=== PATIENT | female | born 1970 | race Caucasian/White ===

== ENCOUNTER 2019-08-18 21:02 | Emergency (ER) | payer SELFPAY ==
[2019-08-18 21:03] VITALS: BP 159/75; PULSE 84; RESP 18; TEMP 36.9; O2SAT 99; BMI 44.9
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
[2019-08-18] MEDS: Diphth,Pertuss(Acell),Tet Vac 0.5 ML Vial IM (21:57)
[2019-08-18 22:14] VITALS: BP 120/80; PULSE 83; RESP 15
== END 2019-08-18 22:19 | disposition home or self-care (01) ==
PROVIDERS: Emergency Provider Emergency Medicine; Family Provider Family Medicine Geriatric Medicine; PCP Family Medicine Geriatric Medicine
DX: S60.222A Contusion of left hand, initial encounter (principal); S00.83XA Contusion of other part of head, initial encounter; S60.512A Abrasion of left hand, initial encounter; V89.2XXA Person injured in unspecified motor-vehicle accident, traffic, initial encounter; Y93.9 Activity, unspecified; Y92.9 Unspecified place or not applicable
CPT/HCPCS: 73130; 90715; 99284

== ENCOUNTER 2019-09-30 03:53 | Emergency (ER) | payer MEDICAID, SELFPAY ==
[2019-09-30 03:54] VITALS: BP 138/84; PULSE 76; RESP 24; TEMP 36.3; O2SAT 100; BMI 46.8
[2019-09-30 04:37] VITALS: BP 118/63; PULSE 76; RESP 16; O2SAT 99
--- NOTE | 2019-09-30 04:47 | CT_ITS ---
STUDY: CT ABDOMEN AND PELVIS WITHOUT CONTRAST REASON FOR EXAM: Female, 49 years old. LT FLANK PAIN X ONE HR. Hx of cholecystectomy and appendectomy RADIATION DOSAGE (If Supplied By Facility): CTDIvol = ( 23.42 ) mGy, DLP = ( 1304.66 ) mGycm TECHNIQUE: Transaxial 2.5 mm images were obtained from the dome of the diaphragm to the symphysis pubis without oral contrast, and without intravenous contrast. Sagittal and coronal images were reconstructed. This examination is limited for the evaluation of gastrointestinal, solid organs and vascular structures due to the lack of intravenous and oral contrast. There is obesity, the entirety of soft tissue is not imaged. Individualized dose optimization techniques were used for this CT. COMPARISON: None. FINDINGS: Nonspecific compression of lung bases. There is cardiac enlargement. There is no pericardial fluid. Normal liver. Absent gallbladder and normal extrahepatic biliary system. Normal spleen. Normal pancreas. Normal bilateral adrenal glands. Normal right kidney. Mild left hydronephrosis and hydroureter with an obstructing left UVJ calculus 1 to 2 mm. 1 to 2 mm nonobstructing left inferior renal pole calculus. Normal visualized stomach. Normal small intestine. There are predominantly sigmoid colonic diverticula consistent with diverticulosis. There are surgical clips in the region of the appendix consistent with a prior appendectomy. Normal abdominal aorta. Normal inferior vena cava. Normal retroperitoneum. Normal urinary bladder. The uterus is age appropriate. Enlargement of the left inguinal borderline sized right inguinal lymph nodes. Sagittal left lymph node 2.6 cm and 1.4, right 1.7 cm. Right saphenofemoral insufficiency with varices formation along the anterior and lateral thigh. There are diffuse degenerative changes of the visualized spine, lateral hip joints, lower lumbar facet joints. CT/Abdomen/Pelvis without Cont IMPRESSION: Mild left hydronephrosis and hydroureter with a small left UVJ calculus and a nonobstructing left inferior renal pole calculus. Cardiomegaly. Colonic diverticulosis without active inflammation. Enlarged inguinal lymph nodes of unclear etiology. Right saphenofemoral venous insufficiency with varices formation. If not previously performed ultrasonographic assessment of the bilateral lower extremities for reflux would provide additional detail. Electronically Signed: Roxie García MD at 6:11 EST , Service support ,
--- NOTE | 2019-09-30 04:48 | ED.DCSUM_ITS ---
History of Present Illness Chief Complaint: Flank Pain Informant: Patient Narrative: Patient stated she woke up a couple hours goes with acute left-sided flank pain. Sharp stabbing. Difficult to get comfortable. No history of kidney stones. No blood in her urine. She felt fine before bed. She has some nausea with no vomiting. Normal bowel movements. Current severity is mild. She is unsure if she passed a kidney stone while urinating in the toilet here in the department. She does feel better but it seems to wax and wane. She denies any injury to her back. Is not movement related. No fevers or chills. She denies any urinary symptoms before bed. Past Medical History - Allergies and Home Meds Allergies/Adverse Reactions: Allergies No Known Allergies Allergy (Verified 09/30/19 03:59) Primary Care Physician: Wily Arshad MD [STAFF PHYSICIAN] - Beny Covarrubias Chi, MD [Primary Care Provider] - Prior records reviewed: Yes Past Medical History: - - Reviewed with patient Surgical History: - - Gallbladder, appendix Lives: With Family Smoking Status: Never smoker Alcohol: None Drugs: None Review of Systems General: Denies: Chills, Fever, Sweats Eyes: Denies: Visual changes - bilaterally, Diplopia ENT: Denies: Rhinorrhea, Sore throat Cardiovascular: Denies: Chest pain, Palpitations Respiratory: Denies: Dyspnea, Cough, Dyspnea on exertion Gastrointestinal: Denies: Abdominal pain, Nausea, Vomiting, Diarrhea, Melena, H ematochezia Genitourinary: Denies: Dysuria, Hematuria, Frequency Musculoskeletal: Reports: Back pain - Left-sided back and flank. Denies: Extremity Pain Skin: Denies: Rash, Wounds Neurological: Denies: Headache, Weakness, Numbness Physical Exam Vital Signs/Narrative: Vital Signs Temp Pulse Resp BP Pulse Ox 09/30/19 04:37 76 16 118/63 99 09/30/19 03:54 97.4 F L 76 24 H 138/84 H 100 General: Well nourished, Well developed, No Acute Distress Head: Normocephalic, Atraumatic Eyes: Perrl, EOMI ENT: Moist mucous membranes, No rhinorrhea Neck: Supple, Nontender Cardiovascular: Regular rate, Regular rhythm, No murmurs Respiratory: No distress, CTA bilaterally, Chest nontender Abdomen: Soft, Nontender, Nondistended, Normal bowel sounds Back: Nontender, Normal Inspection Extremities: Nontender, No edema Skin: Normal color, No rash Neurological: Alert, Oriented x3, Cranial nerves II-XII grossly intact, Normal Strength, Normal Sensation Psychological: Normal affect, Normal Mood Diagnostic/Tx/Re-eval Impressions Abdomen/Pelvis CT 09/30/19 04:47 IMPRESSION: Mild left hydronephrosis and hydroureter with a small left UVJ calculus and a nonobstructing left inferior renal pole calculus. Cardiomegaly. Colonic diverticulosis without active inflammation. Enlarged inguinal lymph nodes of unclear etiology. Right saphenofemoral venous insufficiency with varices formation. If not previously performed ultrasonographic assessment of the bilateral lower extremities for reflux would provide additional detail. Electronically Signed: Roxie García MD at 6:11 EST , Service support , 09/30/19 04:47 Abdomen/Pelvis without Cont [CT] Stat Laboratory Results 09/30/19 09/30/19 09/30/19 04:00 04:00 05:35 WBC 9.7 RBC 4.49 Hgb 13.6 Hct 41.7 MCV 92.9 MCH 30.3 MCHC 32.6 RDW Std Deviation 41.3 RDW Coeff of Kristen 12.3 Plt Count 232 MPV 9.6 Immature Gran % (Auto) 0.800 Neut % (Auto) 51.3 Lymph % (Auto) 40.8 Newton % (Auto) 5.0 Eos % (Auto) 1.5 Baso % (Auto) 0.6 Absolute Neuts (auto) 5.0 Absolute Lymphs (auto) 3.96 Nucleated RBC % 0 Sodium 142 Potassium 3.9 Chloride 108 H Carbon Dioxide 28.0 Anion Gap 6 BUN 19 H Creatinine 0.81 Estim Creat Clear Calc 64.99 Est GFR (MDRD) Af Amer 96 Est GFR (MDRD) Non-Af 79 BUN/Creatinine Ratio 23.5 H Glucose 120 H Calcium 9.1 Serum , Qual NEGATIVE Urine Color Urine Clarity Urine pH Ur Specific [place] Urine Protein Urine Glucose (UA) Urine Ketones Urine Occult Blood Urine Nitrite Urine Bilirubin Urine Urobilinogen Ur Leukocyte Esterase Urine RBC Urine WBC Ur Squamous Epith Cells Urine Bacteria Urine Mucus 09/30/19 05:45 WBC RBC Hgb Hct MCV MCH MCHC RDW Std Deviation RDW Coeff of Kristen Plt Count MPV Immature Gran % (Auto) Neut % (Auto) Lymph % (Auto) Newton % (Auto) Eos % (Auto) Baso % (Auto) Absolute Neuts (auto) Absolute Lymphs (auto) Nucleated RBC % Sodium Potassium Chloride Carbon Dioxide Anion Gap BUN Creatinine Estim Creat Clear Calc Est GFR (MDRD) Af Amer Est GFR (MDRD) Non-Af BUN/Creatinine Ratio Glucose Calcium Serum , Qual Urine Color Yellow Urine Clarity Sl. Cloudy Urine pH 5.0 Ur Specific [place] 1.025 Urine Protein 15 H Urine Glucose (UA) Normal Urine Ketones 5 H Urine Occult Blood 250 H Urine Nitrite Negative Urine Bilirubin Negative Urine Urobilinogen Normal Ur Leukocyte Esterase 25 H Urine RBC 25-50 SEEN Urine WBC 0 SEEN Ur Squamous Epith Cells 50-100 SEEN Urine Bacteria 0 SEEN Urine Mucus 1+ - Medical Decision Making Patient given IV fluids, Toradol, Zofran, morphine. Lab work and CT abdomen pelvis obtained. Lab work shows a urine that shows no signs of infection. Electrolytes show a BUN of 19. CBC shows no evidence of leukocytosis. CAT scan shows a 1 to 2 mm left UVJ kidney stone with hydro-. Also a left renal pelvis stone 1 to 2 mm. Incidental finding of inguinal lymph nodes. On palpation I cannot palpate these. Patient has no pain in these areas. Patient will follow- up as an outpatient for this. She will follow-up with Dr. Arshad urology for her kidney stones. Given a prescription for Percocet and Zofran for home. I suspect she will pass these given that they are punctate. She feels much better after treatment with pain medicine. She did require a dose of Dilaudid. This significantly helped her pain. ED Disposition - Plan for ED Patient: Disposition: Home or Assisted Living Diagnosis: Kidney stone on left side Instructions: KIDNEY STONE w/ Colic Prescriptions: Oxycodone HCl/Acetaminophen [Percocet 5/325] 1 - 2 tab PO Q6H PRN PRN 5 Days #20 tab PRN Reason: Pain Or Fever Transmission Status: Sent to [facility] Ondansetron [Zofran Odt] 4 mg PO Q8H PRN PRN #10 tab PRN Reason: Nausea Transmission Status: Pending to [facility] Referrals: Beny Covarrubias Chi, MD [Primary Care Provider] - Wily Arshad MD [STAFF PHYSICIAN] -
[2019-09-30 04:56] LABS: Absolute Lymphocyte Count 3.96 X10^3/uL (0.83-4.51); Basophil# 0.06 X10^3/uL; Basophil% 0.6 % (0-1); Eosinophil# 0.15 X10^3/uL; Eosinophils% 1.5 % (0-5); Hematocrit 41.7 % (37-47); Hemoglobin 13.6 g/dL (12.0-15.0); Lymphocyte # 3.96 X10^3/ul (4.0); Lymphocyte % 40.8 % (19-41); Mean Corp Hgb Conc 32.6 g/dL (32-36); Mean Corpuscular Hgb 30.3 pg (27.0-32.0); Mean Corpuscular Volume 92.9 fL (81-99); Mean Platelet Vol. 9.6 fl (6.2-12.0); Monocyte# 0.49 X10^3/uL; NRBC Flagged by Analyzer 0 % (0-5); Neutrophil # 4.97 X10^3/uL (2.7-7.7); Neutrophil % 51.3 % (47-70); Platelet Count 232 K/mm3 (150-450); RBC Distribution Width CV 12.3 % (11.6-14.6); RBC Distribution Width SD 41.3 fl (35.1-43.9); Red Blood Count 4.49 M/mm3 (4.2-5.4); White Blood Count 9.7 K/mm3 (4.4-11.0)
[2019-09-30 05:02] VITALS: PULSE 89; RESP 18; O2SAT 95
[2019-09-30] MEDS: Ondansetron 4 MG/2 ML Vial IV (05:02)
[2019-09-30] MEDS: Ketorolac 30 MG/ML Syringe IV (05:02)
[2019-09-30] MEDS: 0.9% Normal Saline 1,000 ML 250 ML IV (05:02)
[2019-09-30] MEDS: Morphine 4 MG/ML Syringe IV (05:03)
[2019-09-30 05:17] LABS: Anion Gap 6 (5-15); BUN 19 mg/dL (7-18); BUN/Creat Ratio 23.5 RATIO (10-20); Calcium,Total 9.1 mg/dL (8.5-10.1); Chloride 108 mmol/L (98-107); Creatinine, Serum 0.81 mg/dL (0.55-1.02); EST Glomerular Filtration Rate 79 mL/min (>60); Est Glom Filt Rate - Afr Amer 96 mL/min (>60); Estimated Creatinine Clearance 64.99 ml/min; Glucose 120 mg/dL (74-106); Potassium 3.9 mmol/L (3.5-5.1); Sodium Level 142 mmol/L (136-145)
[2019-09-30] MEDS: HYDROmorphone 1 MG/ML Syringe IV (05:38)
[2019-09-30 05:51] LABS: Bacteria 0 SEEN /hpf (None Seen); White Blood Cells 0 SEEN /hpf (0-5)
[2019-09-30 05:52] LABS: Internal QC Validated? YES +Cl - CLEAR BKGD; Pregnancy, Serum, hCG Quali. NEGATIVE Negative
[2019-09-30 05:53] LABS: Color, Urine Yellow (Yellow); Glucose, Dipstick Normal (Normal); Ketone-Dipstick 5 mg/dl (Negative); Leukocyte Esterase-Dipstick 25 /ul (Negative); Nitrite-Dipstick Negative (Negative); Occult Blood-Urine 250 /ul (Negative); Protein-Dipstick 15 mg/dl (Negative); Specific Gravity, Urine 1.025 (1.002-1.030); Urine Bilirubin Dipstick Negative (Negative); Urine Clarity Sl. Cloudy (Clear); Urine Urobilinogen Normal (Normal)
[2019-09-30 05:58] VITALS: O2SAT 84; O2SAT 98
[2019-09-30 05:59] VITALS: BP 125/56; PULSE 68; RESP 12; O2SAT 98
[2019-09-30 06:08] LABS: Mucous, Urine 1+ /hpf (<or=2+); Red Blood Cells-Urine 25-50 SEEN /hpf (0-5); Squamous Epithelial Cells - UA 50-100 SEEN /hpf (5-10)
[2019-09-30 07:02] VITALS: BP 130/74; PULSE 82; RESP 16; O2SAT 100
== END 2019-09-30 07:02 | disposition home or self-care (01) ==
PROVIDERS: Emergency Provider Emergency Medicine; PCP Family Medicine Geriatric Medicine
DX: N13.2 Hydronephrosis with renal and ureteral calculous obstruction (principal); K57.30 Diverticulosis of large intestine without perforation or abscess without bleeding; R59.0 Localized enlarged lymph nodes; I87.2 Venous insufficiency (chronic) (peripheral)
CPT/HCPCS: 74176; 80048; 81001; 84703; 85025; 96361; 96374; 96375; 99284; J7030; A4216; J2405

== ENCOUNTER → 2019-11-25 | Outpatient (CLI) | payer MEDICAID, SELFPAY ==
[2019-11-25 14:23] LABS: Absolute Lymphocyte Count 2.42 X10^3/uL (0.83-4.51); Absolute Neutrophil Count 4.5 X10^3/uL (2.0-7.7); Basophil# 0.03 X10^3/uL; Basophil% 0.4 % (0-1); Eosinophil# 0.21 X10^3/uL; Eosinophils% 2.8 % (0-5); Hematocrit 41.3 % (37-47); Hemoglobin 13.4 g/dL (12.0-15.0); Lymphocyte # 2.42 X10^3/ul (4.0); Mean Corp Hgb Conc 32.4 g/dL (32-36); Mean Corpuscular Hgb 30.3 pg (27.0-32.0); Mean Corpuscular Volume 93.4 fL (81-99); Monocyte# 0.36 X10^3/uL; Monocyte% 4.8 % (0-10); NRBC Flagged by Analyzer 0 % (0-5); Neutrophil # 4.51 X10^3/uL (2.7-7.7); Neutrophil % 59.6 % (47-70); Platelet Count 231 K/mm3 (150-450); RBC Distribution Width CV 12.4 % (11.6-14.6); RBC Distribution Width SD 42.9 fl (35.1-43.9); Red Blood Count 4.42 M/mm3 (4.2-5.4); White Blood Count 7.6 K/mm3 (4.4-11.0)
[2019-11-25 14:46] LABS: ALB/GLOB Ratio 1.1 RATIO (0.9-2.4); AST(SGOT) 19 U/L (15-37); Alanine Aminotransfer ALT/SGPT 28 U/L (13-56); Albumin, Serum 3.9 g/dL (3.2-5.0); Alkaline Phosphatase 112 U/L (45-117); Anion Gap 4 (5-15); BUN 20 mg/dL (7-18); BUN/Creat Ratio 25.9 RATIO (10-20); Calcium,Total 8.9 mg/dL (8.5-10.1); Chloride 112 mmol/L (98-107); Creatinine, Serum 0.77 mg/dL (0.55-1.02); EST Glomerular Filtration Rate 84 mL/min (>60); Est Glom Filt Rate - Afr Amer 101 mL/min (>60); Globulin 3.5 g/dL (2.2-4.2); Glucose 105 mg/dL (74-106); Potassium 4.3 mmol/L (3.5-5.1); Protein, Total 7.4 g/dL (6.4-8.2); Sodium Level 141 mmol/L (136-145); Thyroid Stim Hormone (TSH) 0.97 uIU/mL (0.358-3.74)
== END | disposition home or self-care (01) ==
PROVIDERS: PCP Family Medicine Geriatric Medicine; Visit Provider Family Medicine Geriatric Medicine
DX: R53.83 Other fatigue (principal)
CPT/HCPCS: 36415; 80053; 84443; 85025

== ENCOUNTER → 2019-12-23 | Outpatient (CLI) | payer MEDICAID, SELFPAY ==
--- NOTE | 2019-12-23 09:53 | BI_ITS ---
MAMMOGRAPHY - BILATERAL SCREENING REASON FOR EXAM: Female, 49 years old. Routine annual screening examination. PERTINENT HISTORY: Non-contributory. TECHNIQUE: Digital bilateral breast yamil (3D mammographic acquisition) in the CC and MLO projections. 2-D mediolateral oblique (MLO) and craniocaudad (CC) views of both breasts were obtained. CAD: Full Field Digital Mammography with Computer Added Detection was performed. COMPARISON: Comparison is made with prior examination dated December 24, 2016. FINDINGS: Breast Composition: There are scattered areas of fibroglandular density. There are no dominant masses or suspicious calcifications. Stable benign-appearing bilateral axillary lymph nodes. No other significant abnormalities are identified. There has been no significant change since the prior study. BI/SCREEN MAMM (CAD) W/YAMIL BILAT IMPRESSION: Stable bilateral screening mammogram. Yearly follow-up mammogram recommended. (A) ASSESSMENT CATEGORY: BIRADS Category 2: Benign. A letter regarding these results will be sent to the patient by the facility within 30 days. Approximately 10% of breast cancers are not detected by mammography. A normal mammogram should not delay biopsy of a clinically suspicious abnormality. [id number] Electronically Signed: Davide Christianson, at 10:57 EDT , Service support ,
== END | disposition home or self-care (01) ==
LOC: OPBI 09:51
PROVIDERS: PCP Family Medicine Geriatric Medicine; Referring Provider Family Medicine Geriatric Medicine; Visit Provider Family Medicine Geriatric Medicine
DX: Z12.31 Encounter for screening mammogram for malignant neoplasm of breast (principal)
CPT/HCPCS: 77063; 77067

== ENCOUNTER → 2020-05-26 | Outpatient (CLI) | payer MEDICAID, SELFPAY ==
[2020-05-26 12:35] LABS: Absolute Lymphocyte Count 2.44 X10^3/uL (0.83-4.51); Absolute Neutrophil Count 4.1 X10^3/uL (2.0-7.7); Basophil# 0.05 X10^3/uL; Basophil% 0.7 % (0-1); Eosinophil# 0.28 X10^3/uL; Eosinophils% 3.9 % (0-5); Hematocrit 39.4 % (37-47); Hemoglobin 12.7 g/dL (12.0-15.0); Lymphocyte # 2.44 X10^3/ul (4.0); Lymphocyte % 33.6 % (19-41); Mean Corp Hgb Conc 32.2 g/dL (32-36); Mean Corpuscular Hgb 31.1 pg (27.0-32.0); Mean Corpuscular Volume 96.3 fL (81-99); Mean Platelet Vol. 9.5 fl (6.2-12.0); Monocyte# 0.37 X10^3/uL; Monocyte% 5.1 % (0-10); NRBC Flagged by Analyzer 0 % (0-5); Neutrophil # 4.06 X10^3/uL (2.7-7.7); Neutrophil % 55.7 % (47-70); Platelet Count 207 K/mm3 (150-450); RBC Distribution Width CV 12.2 % (11.6-14.6); RBC Distribution Width SD 42.9 fl (35.1-43.9); Red Blood Count 4.09 M/mm3 (4.2-5.4); White Blood Count 7.3 K/mm3 (4.4-11.0)
[2020-05-26 12:56] LABS: ALB/GLOB Ratio 0.9 RATIO (0.9-2.4); AST(SGOT) 14 U/L (15-37); Alanine Aminotransfer ALT/SGPT 30 U/L (13-56); Albumin, Serum 3.5 g/dL (3.2-5.0); Alkaline Phosphatase 113 U/L (45-117); Anion Gap 6 (5-15); BUN 13 mg/dL (7-18); BUN/Creat Ratio 17.6 RATIO (10-20); Calcium,Total 9.2 mg/dL (8.5-10.1); Chloride 109 mmol/L (98-107); Creatinine, Serum 0.74 mg/dL (0.55-1.02); EST Glomerular Filtration Rate 88 mL/min (>60); Est Glom Filt Rate - Afr Amer 106 mL/min (>60); Globulin 3.8 g/dL (2.2-4.2); Glucose 114 mg/dL (74-106); Protein, Total 7.3 g/dL (6.4-8.2); Sodium Level 144 mmol/L (136-145); Thyroid Stim Hormone (TSH) 1.11 uIU/mL (0.358-3.74)
== END | disposition home or self-care (01) ==
LOC: POLAB3 10:37
PROVIDERS: PCP Family Medicine Geriatric Medicine; Visit Provider Family Medicine Geriatric Medicine
DX: R53.83 Other fatigue (principal)
CPT/HCPCS: 36415; 80053; 84443; 85025

== ENCOUNTER → 2020-10-17 16:22 | Outpatient (CLI) | payer MEDICAID, SELFPAY ==
[2020-10-17 16:45] LABS: Absolute Lymphocyte Count 2.35 X10^3/uL (0.83-4.51); Absolute Neutrophil Count 3.6 X10^3/uL (2.0-7.7); Basophil# 0.03 X10^3/uL; Basophil% 0.5 % (0-1); Eosinophil# 0.12 X10^3/uL; Eosinophils% 1.8 % (0-5); Hematocrit 37.3 % (37-47); Hemoglobin 12.9 g/dL (12.0-15.0); Lymphocyte # 2.35 X10^3/ul (4.0); Lymphocyte % 36.2 % (19-41); Mean Corp Hgb Conc 34.6 g/dL (32-36); Mean Corpuscular Hgb 34.5 pg (27.0-32.0); Mean Corpuscular Volume 99.7 fL (81-99); Mean Platelet Vol. 8.9 fl (6.2-12.0); Monocyte# 0.31 X10^3/uL; Monocyte% 4.8 % (0-10); NRBC Flagged by Analyzer 0 % (0-5); Neutrophil # 3.62 X10^3/uL (2.7-7.7); Neutrophil % 55.8 % (47-70); Platelet Count 159 K/mm3 (150-450); RBC Distribution Width CV 13.6 % (11.6-14.6); RBC Distribution Width SD 47.3 fl (35.1-43.9); Red Blood Count 3.74 M/mm3 (4.2-5.4); White Blood Count 6.5 K/mm3 (4.4-11.0)
[2020-10-17 16:58] LABS: ALB/GLOB Ratio 1.1 RATIO (0.9-2.4); AST(SGOT) 18 U/L (15-37); Alanine Aminotransfer ALT/SGPT 33 U/L (13-56); Albumin, Serum 3.7 g/dL (3.2-5.0); Alkaline Phosphatase 126 U/L (45-117); Anion Gap 5 (5-15); BUN 15 mg/dL (7-18); BUN/Creat Ratio 25.8 RATIO (10-20); Calcium,Total 8.8 mg/dL (8.5-10.1); Chloride 111 mmol/L (98-107); Creatinine, Serum 0.58 mg/dL (0.55-1.02); EST Glomerular Filtration Rate 115 mL/min (>60); Est Glom Filt Rate - Afr Amer 139 mL/min (>60); Globulin 3.5 g/dL (2.2-4.2); Glucose 92 mg/dL (74-106); Protein, Total 7.2 g/dL (6.4-8.2); Sodium Level 145 mmol/L (136-145)
[2020-10-17 17:23] LABS: D-Dimer Quantitative (DVT/PE) 0.42 FEU/ug/m (0.27-0.49)
[2020-10-17 17:41] LABS: BNP,B-Type NATRIURETIC PEPTIDE 77.6 pg/mL (0-100)
== END ==
PROVIDERS: PCP Family Medicine Geriatric Medicine; Visit Provider Family Medicine Geriatric Medicine
DX: R60.9 Edema, unspecified (principal)
CPT/HCPCS: 36415; 80053; 83880; 85025; 85379

== ENCOUNTER → 2020-12-01 14:36 | Outpatient (CLI) | payer MEDICAID, SELFPAY ==
[2020-12-01 15:47] LABS: Absolute Lymphocyte Count 2.53 X10^3/uL (0.83-4.51); Basophil# 0.04 X10^3/uL; Basophil% 0.6 % (0-1); Eosinophils% 1.4 % (0-5); Hematocrit 39.7 % (37-47); Hemoglobin 12.9 g/dL (12.0-15.0); Lymphocyte # 2.53 X10^3/ul (0.83-4.51); Lymphocyte % 35.5 % (19-41); Mean Corp Hgb Conc 32.5 g/dL (32-36); Mean Corpuscular Hgb 31.1 pg (27.0-32.0); Mean Corpuscular Volume 95.7 fL (81-99); Mean Platelet Vol. 9.4 fl (6.2-12.0); Monocyte# 0.37 X10^3/uL; Monocyte% 5.2 % (0-10); NRBC Flagged by Analyzer 0 % (0-5); Neutrophil # 4.03 X10^3/uL (2.7-7.7); Neutrophil % 56.6 % (47-70); Platelet Count 213 K/mm3 (150-450); RBC Distribution Width CV 12.5 % (11.6-14.6); Red Blood Count 4.15 M/mm3 (4.2-5.4); White Blood Count 7.1 K/mm3 (4.4-11.0)
[2020-12-01 16:26] LABS: ALB/GLOB Ratio 1.1 RATIO (0.9-2.4); AST(SGOT) 18 U/L (15-37); Alanine Aminotransfer ALT/SGPT 35 U/L (13-56); Albumin, Serum 3.9 g/dL (3.2-5.0); Alkaline Phosphatase 124 U/L (45-117); Anion Gap 5 (5-15); BUN 17 mg/dL (7-18); Calcium,Total 9.2 mg/dL (8.5-10.1); Chloride 108 mmol/L (98-107); Creatinine, Serum 0.74 mg/dL (0.55-1.02); EST Glomerular Filtration Rate 87 mL/min (>60); Est Glom Filt Rate - Afr Amer 106 mL/min (>60); Globulin 3.5 g/dL (2.2-4.2); Glucose 97 mg/dL (74-106); Potassium 4.5 mmol/L (3.5-5.1); Protein, Total 7.4 g/dL (6.4-8.2); Sodium Level 141 mmol/L (136-145); Thyroid Stim Hormone (TSH) 1.38 uIU/mL (0.358-3.74)
[2020-12-01 17:49] LABS: Vitamin D,25 Hydroxy 8.1 ng/mL
== END ==
PROVIDERS: PCP Family Medicine Geriatric Medicine; Visit Provider Family Medicine Geriatric Medicine
DX: E55.9 Vitamin D deficiency, unspecified (principal); R53.83 Other fatigue
CPT/HCPCS: 36415; 80053; 82306; 84443; 85025

== ENCOUNTER 2021-03-08 13:57 | Emergency (ER) | payer OTHER, MEDICAID, SELFPAY ==
[2021-03-08 13:58] VITALS: BP 124/73; PULSE 84; RESP 16; TEMP 36.4; O2SAT 97; BMI 44.6
--- NOTE | 2021-03-08 14:18 | RAD_ITS ---
STUDY: X-RAY - LUMBAR SPINE REASON FOR EXAM: Female, 51 years old. Back pain following a fall. TECHNIQUE: 3 view(s) of the lumbar spine were obtained. COMPARISON: None FINDINGS: Normal lumbar lordosis. There is no substantial scoliosis. Minimal anterior listhesis of L4 on L5. There is generalized demineralization of the vertebral bodies. Mild loss of height of the superior endplate of the T11 vertebrae. There is multi-level degenerative disc disease with multi-level disc space narrowing. Endplate spondylosis. Facet joint osteoarthritis. The soft tissue structures are unremarkable. RAD/Lumbar Spine 2 or 3 Views IMPRESSION: Degenerative changes of the spine, as detailed above. Mild loss of height of the superior endplate of the T11 vertebrae. Electronically Signed: Davide Christianson MD at 15:14 EDT , Service support ,
--- NOTE | 2021-03-08 14:18 | RAD_ITS ---
STUDY: X-RAY - LEFT WRIST REASON FOR EXAM: Female, 51 years old. Fall TECHNIQUE: 3 view(s) of the wrist were obtained. COMPARISON: None. FINDINGS: Normal visualized distal radius and ulna. Normal radiocarpal articulation. Normal distal radioulnar articulation. Normal carpal bones. Normal carpal articulations. Normal carpometacarpal articulation of the thumb. Normal second through fifth carpometacarpal articulations. Normal visualized metacarpal bones. The soft tissue structures are unremarkable. RAD/Wrist min 3 Views IMPRESSION: Normal x-ray examination of the wrist. Electronically Signed: Davide Christianson MD at 15:18 EDT , Service support ,
--- NOTE | 2021-03-08 14:19 | EDS_ITS ---
HPI History of Present Illness Chief Complaint: Fall Detail of Chief Complaint: Fall with injury to back and left arm Informant: patient Narrative Narrative: Patient presents to the emergency department after sustaining a fall around 12:30 PM. Patient states that she had taken some trash out to the dumpster while at work. Patient opened the dumpster noted a large raccoon in the dumpster which caused her to jump back on the gravel and she slipped and fell directly onto her back. Patient states that the raccoon came out so she was able to get up and hunched over walk away. Denies loss of consciousness. She complains of pain in her low back. Patient complaining of pain in her left elbow and left wrist. She is not on any blood thinners. She denies neck pain. [facility] Medical History (Updated 03/08/21 @ 15:[address] Fili Ball, ) Anxiety Depression Home Medications ondansetron 4 mg PO Q8H PRN PRN #10 tab 09/30/19 [Rx Last Taken Unknown] citalopram 20 mg PO DAILY 03/08/21 [History Last Taken Unknown] doxepin 10 mg PO DAILY 03/08/21 [History Last Taken Unknown] hydrocodone-acetaminophen 1 tab PO Q4H PRN PRN 2 Days #15 tablet 03/08/21 [Rx Last Taken Unknown] ipratropium bromide 1 spray INTRANASAL DAILY 03/08/21 [History Last Taken Unknown] lidocaine 1 patch TRANSDERMAL DAILY 03/08/21 [History Last Taken Unknown] meloxicam 15 mg PO DAILY 03/08/21 [History Last Taken Unknown] phentermine 1 mg PO DAILY 03/08/21 [History Last Taken Unknown] Allergy/AdvReac Type Severity Reaction Status Date / Time No Known Allergies Allergy Verified 03/08/21 14:00 Social History Smoking Status: Never smoker [facility] ED Constitutional Constitutional ED: Reports systems reviewed and no addt'l complaints, except as documented; Denies body ache(s), change in weight or chills Eyes Eyes: Denies acute decrease in peripheral vision, change in vision, double vision or loss of vision ENT ENT ED: Reports none; Denies ear pain, lip swelling, loss taste/smell, neck pain, otalgia or sore throat Cardiovascular Cardiovascular: Reports none; Denies abdominal pain, chest pain with activity, leg edema, lightheadedness, palpitations, rapid heart rate or syncope Respiratory/Chest Respiratory/Chest: Reports none; Denies change in mental status, dry cough, dyspnea, hemoptysis, shortness of breath at rest or shortness of breath with exertion Gastrointestinal Gastrointestinal: Reports none; Denies abdominal pain, change in stool character, diarrhea, hematemesis, hematochezia, melena, rectal bleeding or vomiting Genitourinary Genitourinary ED: Reports none; Denies abdominal discomfort, anuria, dysuria, genital pain or polyuria Musculoskeletal Musculoskeletal: Reports none, back pain and other Details: Left elbow and left wrist pain ; Denies arthralgias, difficulty walking, extremity pain, muscle weakness or myalgias Integumentary Reports none; Denies abscess or rash Neurologic Neurologic: Reports none; Denies abnormal gait, confusion, focal weakness, frequent falls, headache(s), loss of vision, numbness, paresthesias, radicular pain, vertigo or weakness Psychiatric Psychiatric: Reports systems reviewed and no addt'l complaints, except as documented and none; Denies behavioral changes, confusion, difficulty concentrating, hallucinations, suicidal ideation, tactile hallucinations or visual hallucinations Endocrine Endocrinology: Denies none, cold intolerance, excessive sweating, fatigue or heat intolerance Hematologic/Lymphatic Hematologic/Lymphatic: Reports none; Denies anemia, easy bleeding or easy bruising Allergic/Immunologic Allergic/Immunologic ED: Denies as per HPI, none, lip swelling, mouth swelling, throat swelling, tongue swelling or hives EXAM Physical Exam Const Vital Signs: 03/08/21 13:58 03/08/21 14:35 Temperature 97.6 F L Temperature Source Temporal Pulse Rate 84 Respiratory Rate 16 Respiratory Effort Normal Blood Pressure 124/73 H Blood Pressure Mean 90 Pulse Ox 97 Oxygen Delivery Method Room Air Room Air Positive well nourished and well developed General Appearance ED: well developed and NAD HEENT Reports TM's clear and moist mucous membranes normocephalic and atraumatic; Negative for trauma or tenderness Tympanic Membrane ED: Yes TM's clear Eyes PERRL and EOMs intact bilaterally General Eye ED: Negative for pale conjunctiva or scleral icterus Neck no lymphadenopathy, supple and no JVD General: Negative for tenderness Chest Wall inspection of chest normal and palpation of chest normal Chest: Negative for tenderness Resp normal respiratory effort and clear to auscultation bilaterally Effort and Inspection: Negative for respiratory distress or pain with movement Auscultation: Negative for rhonchi, wheezes or diminished lung sounds Cardio regular rate, regular rhythm, S1 normal heart sound, S2 normal heart sound and no murmurs Peripheral Pulses: pulses 2+ throughout GI normal to inspection, nondistended, normoactive bowel sounds, soft to palpation, non-tender, non-distended and no masses Back/Spine no CVA tenderness Back/Spine Narrative: Patient has diffuse tenderness over the lumbar spine. P atient has pain with range of motion. Negative straight leg raises. Extremity Extremity Narrative: Patient has some subtle soft tissue swelling over the left olecranon with diffuse tenderness palpation over the elbow. No obvious deformity. Neurovascularly intact distally. Patient also with tenderness over the left wrist diffusely. No obvious deformity. Neurovascularly intact. General Extremety ED: Negative for edema General Extremity: Negative for edema Neuro oriented x3, CN's II-XII intact bilaterally, no sensory deficits noted and gait normal Sensorium / Orientation: awake, alert, oriented to person, oriented to place and oriented to time Motor Exam: strength 5/5 throughout and strength abnormal Psych mental status grossly normal Skin no rashes or lesions noted and no wounds MDM MDM MDM Narrative Medical decision making narrative: Patient has pain over T11 as well as the lumbar spine therefore cannot rule out a new mild compression fracture of T11 based on x-rays today. Patient will be given a prescription for [place] for pain. She was medicated with morphine and Zofran IM while in the department. Patient will be given work restrictions and advised to follow-up with corporate care within next 3 to 5 days. Radiography Diagnostic Testing: Radiology Impression Lumbar Spine X-Ray 03/08/21 14:18 IMPRESSION: Degenerative changes of the spine, as detailed above. Mild loss of height of the superior endplate of the T11 vertebrae. Electronically Signed: Davide Christianson MD at 15:14 EDT , Service support , Wrist X-Ray 03/08/21 14:18 IMPRESSION: Normal x-ray examination of the wrist. Electronically Signed: Davide Christianson MD at 15:18 EDT , Service support , Elbow X-Ray 03/08/21 14:35 IMPRESSION: Normal x-ray examination of the elbow. Electronically Signed: Davide Christianson MD at 15:12 EDT , Service support , Three-view x-rays of patient's left elbow and wrist obtained interpreted by myself as no acute fractures. Radiology was in agreement. Patient also had x- rays of the lumbar spine 3 views interpreted by myself as degenerative changes. Radiology thought there was mild loss of height of superior endplate of T11 vertebrae. Discharge Plan Triage Chief Complaint: Fall ED Provider: Fili Ball Dx/Rx/DC Orders Clinical Impression: Closed wedge compression fracture of T11 vertebra, Fall, Contusion of elbow, left, Left wrist sprain Instructions: Fx Back, ED Contusion, Upper Extremity, ED Mechanical Fall, ED Wrist Sprain Prescriptions: New hydrocodone-acetaminophen [hydrocodone-acetaminophen] 1 TABLET tablet 1 tab PO Q4H PRN PRN (Reason: Pain) 2 Days Qty: 15 RF: 0 No Action ondansetron 4 MG tablet 4 mg PO Q8H PRN PRN (Reason: Nausea) Qty: 10 RF: 0 meloxicam 15 mg tablet 15 mg PO DAILY RF: 0 phentermine 37.5 mg tablet 1 mg PO DAILY RF: 0 doxepin 10 mg capsule 10 mg PO DAILY RF: 0 citalopram 20 mg tablet 20 mg PO DAILY RF: 0 lidocaine 5 % adhesive patch,medicated 1 patch transdermal DAILY RF: 0 ipratropium bromide 42 mcg (0.06 %) spray,non-aerosol 1 spray INTRANASAL DAILY RF: 0 Primary Care Provider: Beny Covarrubias Chi Referrals: [facility] [GROUP OF PHYSICIANS] - 3-5 Days Beny Covarrubias Chi, MD [Primary Care Provider] - Disposition Disposition: Home, Self Care
[2021-03-08] MEDS: Ondansetron 4 MG/2 ML Vial IM (14:26)
[2021-03-08] MEDS: Morphine 4 MG/ML Syringe IM ×2 (14:26→16:57)
--- NOTE | 2021-03-08 14:34 | ED.RN ---
looked [facility]. not in the system
--- NOTE | 2021-03-08 14:35 | RAD_ITS ---
STUDY: X-RAY - LEFT ELBOW REASON FOR EXAM: Female, 51 years old. Left elbow pain following a fall. TECHNIQUE: 3 view(s) of the elbow. COMPARISON: None. FINDINGS: Normal visualized humerus, radius and ulna. Normal radiocapitellar and ulnotrochlear articulations. The soft tissue structures are unremarkable. RAD/Elbow min 3 Views IMPRESSION: Normal x-ray examination of the elbow. Electronically Signed: Davide Christianson MD at 15:12 EDT , Service support ,
[2021-03-08 17:28] VITALS: BP 128/70; PULSE 88; RESP 17; O2SAT 98
== END 2021-03-08 17:29 | disposition home or self-care (01) ==
PROVIDERS: Emergency Provider Emergency Medicine; PCP Family Medicine Geriatric Medicine
DX: S22.080A Wedge compression fracture of T11-T12 vertebra, initial encounter for closed fracture (principal); S50.02XA Contusion of left elbow, initial encounter; S63.502A Unspecified sprain of left wrist, initial encounter; F41.9 Anxiety disorder, unspecified; F32.9 Major depressive disorder, single episode, unspecified; Z79.899 Other long term (current) drug therapy; W01.0XXA Fall on same level from slipping, tripping and stumbling without subsequent striking against object, initial encounter; Y93.89 Activity, other specified; Y92.89 Other specified places as the place of occurrence of the external cause; Y99.0 Civilian activity done for income or pay
CPT/HCPCS: 72100; 73080; 73110; 96372; 99284; J2405

== ENCOUNTER → 2021-06-01 14:44 | Outpatient (CLI) | payer MEDICAID, SELFPAY ==
[2021-06-01 17:07] LABS: Absolute Lymphocyte Count 2.92 X10^3/uL (0.83-4.51); Absolute Neutrophil Count 5.4 X10^3/uL (2.0-7.7); Basophil# 0.05 X10^3/uL; Basophil% 0.6 % (0-1); Eosinophil# 0.14 X10^3/uL; Eosinophils% 1.5 % (0-5); Hematocrit 40.4 % (37-47); Hemoglobin 13.6 g/dL (12.0-15.0); Lymphocyte # 2.92 X10^3/ul (0.83-4.51); Lymphocyte % 32.1 % (19-41); Mean Corp Hgb Conc 33.7 g/dL (32-36); Mean Corpuscular Hgb 31.7 pg (27.0-32.0); Mean Corpuscular Volume 94.2 fL (81-99); Mean Platelet Vol. 9.8 fl (6.2-12.0); Monocyte% 5.5 % (0-10); NRBC Flagged by Analyzer 0 % (0-5); Neutrophil % 59.4 % (47-70); Platelet Count 248 K/mm3 (150-450); RBC Distribution Width CV 12.4 % (11.6-14.6); Red Blood Count 4.29 M/mm3 (4.2-5.4); White Blood Count 9.1 K/mm3 (4.4-11.0)
[2021-06-01 17:34] LABS: ALB/GLOB Ratio 0.9 RATIO (0.9-2.4); AST(SGOT) 15 U/L (15-37); Alanine Aminotransfer ALT/SGPT 31 U/L (13-56); Albumin, Serum 3.6 g/dL (3.2-5.0); Alkaline Phosphatase 126 U/L (45-117); Anion Gap 8 (5-15); BUN 20 mg/dL (7-18); BUN/Creat Ratio 23.2 RATIO (10-20); Calcium,Total 9.2 mg/dL (8.5-10.1); Chloride 107 mmol/L (98-107); Creatinine, Serum 0.86 mg/dL (0.55-1.02); EST Glomerular Filtration Rate 73 mL/min (>60); Est Glom Filt Rate - Afr Amer 89 mL/min (>60); Globulin 3.9 g/dL (2.2-4.2); Glucose 103 mg/dL (74-106); Potassium 4.1 mmol/L (3.5-5.1); Protein, Total 7.5 g/dL (6.4-8.2); Sodium Level 142 mmol/L (136-145); Thyroid Stim Hormone (TSH) 0.97 uIU/mL (0.358-3.74)
== END ==
PROVIDERS: PCP Family Medicine Geriatric Medicine; Visit Provider Family Medicine Geriatric Medicine
DX: R53.83 Other fatigue (principal)
CPT/HCPCS: 36415; 80053; 84443; 85025

== ENCOUNTER → 2021-07-20 15:49 | Outpatient (CLI) | payer MEDICAID, SELFPAY ==
--- NOTE | 2021-07-20 15:56 | BD_ITS ---
STUDY: DUAL ENERGY X-RAY ABSORPTIOMETRY / DXA REASON FOR EXAM: Female, 51 years old. [id number] TECHNIQUE: Bone Mineral Density (BMD) measurements of lumbar spine and bilateral hips were obtained. COMPARISON: None. FINDINGS: Lumbar Spine (L1-L4): g/cm2 (1.048) / T-score (0.0) / Z-score (1.0) Findings are suggestive of normal bone density with a low fracture risk. Left Femur Total: g/cm2 (0.963) / T-score (0.2) / Z-score (0.8) Left Femoral Neck: g/cm2 (0.745) / T-score (-0.9) / Z-score (0.0) Right Femur Total: g/cm2 (0.954) / T-score (0.1) / Z-score (0.7) Right Femoral Neck: g/cm2 (0.763) / T-score (-0.8) / Z-score (0.2) BD/Dexa Bone Density Study IMPRESSION: The patient is considered normal as outlined below according to World [employer] Organization (WHO) criteria with a low fracture risk. Reference Information: The T-score is the number of standard deviations above or below the standard which is normal for young adults at their peak bone mineral density. The World Health Organization (WHO) interprets the T-scores as follows: Above -1 Normal bone density Between -1 and -2.5 Osteopenia Equal to / or below -2.5 Osteoporosis As a practical clinical guideline, osteopenia may be graded as follows: Mild -1 through -1.5 Moderate -1.6 through -2.0 Severe -2.1 through -2.4 The Z-score is the number of standard deviations above or below age-matched controls. A Z-score of less than -1.5 would be considered abnormal. References: 1. NIH Osteoporosis and Related Bone Diseases www osteo.org 2. International Society for Clinical Densitometry www iscd.org 3. National Osteoporosis Foundation www nof.org Electronically Signed: Davide Christianson MD at 8:44 EST , Service support ,
== END ==
PROVIDERS: PCP Family Medicine Geriatric Medicine; Referring Provider Family Medicine Geriatric Medicine; Visit Provider Family Medicine Geriatric Medicine
DX: Z78.0 Asymptomatic menopausal state (principal)
CPT/HCPCS: 77080

== ENCOUNTER 2021-08-07 06:22 | Emergency (ER) | payer MEDICAID, SELFPAY ==
[2021-08-07 06:22] VITALS: PULSE 85; RESP 18; TEMP 37.4; O2SAT 90; BMI 47.6
[2021-08-07 06:25] VITALS: BP 134/74
[2021-08-07 06:38] VITALS: BP 134/74; PULSE 85; RESP 18; TEMP 37.4; O2SAT 90
--- NOTE | 2021-08-07 06:45 | EX.ED.DYSGE1 ---
HPI <Dr. Michael Webster MD - Last Filed: 08/07/21 22:42> History of Present Illness Chief Complaint: General Illness Informant: patient Narrative Narrative: Patient presents with primary complaint of diarrhea and decreased energy. Symptoms started last Saturday. This is now going on day 9 of symptoms. She started with sinus congestion and sore throat. She had nasal drainage. This progressed to a cough. She has no real sputum production. No hemoptysis. She is not short of breath at any time. She does have some myalgias. She denies ever having a fever. She does have somewhat of a headache. She has had some mild intermittent nausea but has never vomited. Over the last 3 days she has had a fair amount of watery diarrhea without blood. She is not immunized against Covid. She has no known exposures. She has no travel. She has not been on antibiotics for quite some time. She uses city water not well water at her house. She is not having any abdominal pain or back pain. Urine output seems slightly less but there is no dysuria or urgency. It may be slightly darker. Nothing really is making this better or worse. She tried Pepto-Bismol without significant improvement. Past medical history: Anxiety/depression, mild arthritis Medication list is reviewed. No new meds. No known drug allergies Past surgery includes appendectomy cholecystectomy Lives with , non-smoker [facility] <Dr. Michael Webster MD - Last Filed: 08/07/21 22:42> [facility] Medical History Anxiety Depression Home Medications citalopram 20 mg PO DAILY 03/08/21 [History Last Taken Unknown] doxepin 10 mg PO DAILY 03/08/21 [History Last Taken Unknown] ipratropium bromide 1 spray INTRANASAL DAILY 03/08/21 [History Last Taken Unknown] lidocaine 1 patch TRANSDERMAL DAILY 03/08/21 [History Last Taken Unknown] meloxicam 15 mg PO DAILY 03/08/21 [History Last Taken Unknown] acetaminophen [Tylenol Arthritis] 650 mg PO Q12H 08/07/21 [History Last Taken Unknown] dexamethasone 6 mg PO DAILY #7 tab 08/07/21 [Rx Last Taken Unknown] promethazine 25 mg PO Q6H PRN PRN #14 tablet 08/07/21 [Rx Last Taken Unknown] vitamin B complex [B Complex] 1 cap PO DAILY 08/07/21 [History Last Taken Unknown] Allergy/AdvReac Type Severity Reaction Status Date / Time No Known Allergies Allergy Verified 08/07/21 06:26 Social History Smoking Status: Never smoker ROS <Dr. Michael Webster MD - Last Filed: 08/07/21 22:42> ROS ED Constitutional Constitutional ED: Denies chills or fever(s) Eyes Eyes: Denies change in vision ENT ENT ED: Reports rhinorrhea and sore throat; Denies ear pain Cardiovascular Cardiovascular: Denies chest pain or palpitations Respiratory/Chest Respiratory/Chest: Reports cough; Denies dyspnea, dyspnea on exertion or sputum Gastrointestinal Gastrointestinal: Reports diarrhea and nausea; Denies abdominal pain or vomiting Genitourinary Genitourinary ED: Denies dysuria, hematuria or urinary frequency Musculoskeletal Musculoskeletal: Reports myalgias Integumentary Denies rash Neurologic Neurologic: Reports headache(s); Denies paresthesias or weakness Psychiatric Psychiatric: Reports anxiety Endocrine Endocrinology: Denies polydipsia or polyuria Allergic/Immunologic Allergic/Immunologic ED: Denies mouth swelling or urticaria EXAM <Dr. Michael Webster MD - Last Filed: 08/07/21 22:42> Physical Exam Const Vital Signs: 08/07/21 06:22 08/07/21 06:25 08/07/21 06:38 Temperature 99.4 F H 99.4 F H Temperature Source Oral Oral Pulse Rate 85 85 Respiratory Rate 18 18 Blood Pressure 134/74 H 134/74 H Blood Pressure Mean 94 94 Pulse Ox 90 90 Oxygen Delivery Method Room Air Room Air Oxygen Flow Rate (L/min) 08/07/21 11:14 Temperature 99.2 F H Temperature Source Oral Pulse Rate 88 Respiratory Rate 17 Blood Pressure 135/75 H Blood Pressure Mean 95 Pulse Ox 94 Oxygen Delivery Method Nasal Cannula Oxygen Flow Rate (L/min) 2 Positive well nourished, well developed and obese General Appearance ED: well developed and NAD; Negative for cyanotic or diaphoretic Nutritional Appearance: obese HEENT Reports dry mucous membranes HEENT Narrative: Mildly dry mucous membrane. Mouth ED: Yes dry mucous membranes Mouth: dry mucous membranes Eyes General Eye ED: Negative for pale conjunctiva or scleral icterus Neck no JVD Chest Wall inspection of chest normal Resp normal respiratory effort and clear to auscultation bilaterally Effort and Inspection: Negative for pain with movement Auscultation: Negative for rales, rhonchi or wheezes Cardio regular rate, regular rhythm and no murmurs GI normal to inspection, nondistended, normoactive bowel sounds and non-tender Auscultation: normoactive bowel sounds Palpation: soft Back/Spine no CVA tenderness Extremity normal to inspection General Extremety ED: Negative for tenderness Neuro Sensorium / Orientation: alert Psych mental status grossly normal Skin no rashes or lesions noted General Skin Exam: Negative for jaundice <Dr. Del Sanchez DO - Last Filed: 08/07/21 09:30> Physical Exam Const Vital Signs: 08/07/21 06:22 08/07/21 06:25 08/07/21 06:38 Temperature 99.4 F H 99.4 F H Temperature Source Oral Oral Pulse Rate 85 85 Respiratory Rate 18 18 Blood Pressure 134/74 H 134/74 H Blood Pressure Mean 94 94 Pulse Ox 90 90 Oxygen Delivery Method Room Air Room Air Oxygen Flow Rate (L/min) 08/07/21 11:14 Temperature 99.2 F H Temperature Source Oral Pulse Rate 88 Respiratory Rate 17 Blood Pressure 135/75 H Blood Pressure Mean 95 Pulse Ox 94 Oxygen Delivery Method Nasal Cannula Oxygen Flow Rate (L/min) 2 MDM <Dr. Michael Webster MD - Last Filed: 08/07/21 22:42> MDM MDM Narrative Medical decision making narrative: Patient will be given IV fluids and Zofran for her symptoms. I will send off blood work to look for signs of significant dehydration. I will check for Covid as she does have symptoms that could be consistent with this. However she is on day 9 which decreases the sensitivity of the antigen test. Patient will be reassessed. Patient's white count was low. We noticed her sats were initially low at 90%. She is not dyspneic but we will do a chest x-ray as I think she may have Covid. After further results we will have to ambulate her. Patient is turned over to the oncoming physician. Lab Data Labs: Laboratory Results - last 24 hr 08/07/21 08/07/21 06:27 06:27 WBC 3.4 L RBC 4.53 Hgb 14.0 Hct 42.4 MCV 93.6 MCH 30.9 MCHC 33.0 RDW Std Deviation 43.1 RDW Coeff of Kristen 12.4 Plt Count 144 L MPV 9.5 Immature Gran % (Auto) 0.600 Neut % (Auto) 55.2 Lymph % (Auto) 38.0 [place] % (Auto) 5.9 Eos % (Auto) 0.0 Baso % (Auto) 0.3 Absolute Neuts (auto) 1.9 L Absolute Lymphs (auto) 1.28 Nucleated RBC % 0 Sodium 136 Potassium 4.2 Chloride 104 Carbon Dioxide 25.0 Anion Gap 7 BUN 14 Creatinine 0.72 Estim Creat Clear Calc 74.75 Est GFR (MDRD) Af Amer 108 Est GFR (MDRD) Non-Af 89 BUN/Creatinine Ratio 19.3 Glucose 145 H Calcium 8.6 Radiography Diagnostic Testing: Clinical Impression(s) from Imaging Studies Chest X-Ray 08/07/21 07:18 IMPRESSION: Findings suggestive of early left upper lobe infiltrate. Electronically Signed: Davide Christianson MD at 8:18 EST , Service support , <Dr. Del Sanchez, DO - Last Filed: 08/07/21 09:30> [facility] Narrative Medical decision making narrative: Patient signed out to me pending lab work and imaging. Covid testing was pending as well. Patient CBC shows she is leukopenic and lymphopenic. Otherwise her hemoglobin hematocrit are stable. Platelets are normal. Renal function and electrolytes are normal. Chest x-ray on my interpretation shows an early left upper lobe infiltrate. Covid testing is positive today. Patient initially 90% on room air sitting in bed. When she ambulates she dropped to 86. We were able to put her on 2 L and she is able to ambulate and maintain sats of 94 to 96% with ambulation. She is given a dose of dexamethasone IV. She does not qualify for monoclonal antibodies because she is hypoxic. Patient will be given a prescription for dexamethasone and Phenergan to make sure that she is hydrating. She is counseled to monitor her O2 saturations at home and if she drops below 88 she is to return. If she has any other new or worsening symptoms she is also counseled to return. Impression: 1. COVID-19 pneumonitis 2. Hypoxic respiratory failure Lab Data Labs: Laboratory Results - last 24 hr 08/07/21 08/07/21 06:27 06:27 WBC 3.4 L RBC 4.53 Hgb 14.0 Hct 42.4 MCV 93.6 MCH 30.9 MCHC 33.0 RDW Std Deviation 43.1 RDW Coeff of Kristen 12.4 Plt Count 144 L MPV 9.5 Immature Gran % (Auto) 0.600 Neut % (Auto) 55.2 Lymph % (Auto) 38.0 [place] % (Auto) 5.9 Eos % (Auto) 0.0 Baso % (Auto) 0.3 Absolute Neuts (auto) 1.9 L Absolute Lymphs (auto) 1.28 Nucleated RBC % 0 Sodium 136 Potassium 4.2 Chloride 104 Carbon Dioxide 25.0 Anion Gap 7 BUN 14 Creatinine 0.72 Estim Creat Clear Calc 74.75 Est GFR (MDRD) Af Amer 108 Est GFR (MDRD) Non-Af 89 BUN/Creatinine Ratio 19.3 Glucose 145 H Calcium 8.6 Radiography Diagnostic Testing: Clinical Impression(s) from Imaging Studies Chest X-Ray 08/07/21 07:18 IMPRESSION: Findings suggestive of early left upper lobe infiltrate. Electronically Signed: Davide Christianson MD at 8:18 EST , Service support , Discharge Plan Triage Chief Complaint: General Illness ED Provider: Michael Webster Dx/Rx/DC Orders Clinical Impression: Diarrhea, Dehydration, Hypoxia, 2019 novel coronavirus-infected pneumonia (NCIP) Instructions: Coronavirus Disease 2019 (COVID-19): Caring for Yourself or Others Prescriptions: New dexamethasone 6 mg tablet 6 mg PO DAILY Qty: 7 RF: 0 promethazine 25 mg tablet 25 mg PO Q6H PRN PRN (Reason: Nausea) Qty: 14 RF: 0 No Action meloxicam 15 mg tablet 15 mg PO DAILY RF: 0 doxepin 10 mg capsule 10 mg PO DAILY RF: 0 citalopram 20 mg tablet 20 mg PO DAILY RF: 0 lidocaine 5 % adhesive patch,medicated 1 patch transdermal DAILY RF: 0 ipratropium bromide 42 mcg (0.06 %) spray,non-aerosol 1 spray INTRANASAL DAILY RF: 0 acetaminophen [Tylenol Arthritis] 650 mg Tablet Extended Release 650 mg PO Q12H RF: 0 vitamin B complex [B Complex] Capsule 1 cap PO DAILY RF: 0 Primary Care Provider: Beny Covarrubias Chi Referrals: Beny Covarrubias Chi, MD [Primary Care Provider] - 3-5 Days Disposition Disposition: Home, Self Care Discharge Date/Time: 08/07/21 11:18
[2021-08-07] MEDS: 0.9% Normal Saline 1,000 ML 1000 ML IV (06:46)
[2021-08-07] MEDS: Ondansetron 4 MG/2 ML Vial IV (06:46)
[2021-08-07 06:58] LABS: Absolute Lymphocyte Count 1.28 X10^3/uL (0.83-4.51); Absolute Neutrophil Count 1.9 X10^3/uL (2.0-7.7); Basophil# 0.01 X10^3/uL; Basophil% 0.3 % (0-1); Hematocrit 42.4 % (37-47); Lymphocyte # 1.28 X10^3/ul (0.83-4.51); Mean Corpuscular Hgb 30.9 pg (27.0-32.0); Mean Corpuscular Volume 93.6 fL (81-99); Mean Platelet Vol. 9.5 fl (6.2-12.0); Monocyte% 5.9 % (0-10); NRBC Flagged by Analyzer 0 % (0-5); Neutrophil # 1.86 X10^3/uL (2.7-7.7); Neutrophil % 55.2 % (47-70); Platelet Count 144 K/mm3 (150-450); RBC Distribution Width CV 12.4 % (11.6-14.6); RBC Distribution Width SD 43.1 fl (35.1-43.9); Red Blood Count 4.53 M/mm3 (4.2-5.4); White Blood Count 3.4 K/mm3 (4.4-11.0)
[2021-08-07 07:05] LABS: Anion Gap 7 (5-15); BUN 14 mg/dL (7-18); BUN/Creat Ratio 19.3 RATIO (10-20); Calcium,Total 8.6 mg/dL (8.5-10.1); Chloride 104 mmol/L (98-107); Creatinine, Serum 0.72 mg/dL (0.55-1.02); EST Glomerular Filtration Rate 89 mL/min (>60); Est Glom Filt Rate - Afr Amer 108 mL/min (>60); Estimated Creatinine Clearance 74.75 ml/min; Glucose 145 mg/dL (74-106); Potassium 4.2 mmol/L (3.5-5.1); Sodium Level 136 mmol/L (136-145)
--- NOTE | 2021-08-07 07:18 | RAD_ITS ---
STUDY: X-RAY CHEST REASON FOR EXAM: Female, 51 years old. Cough . Sinus headaches. TECHNIQUE: Single AP portable view of the chest. COMPARISON: None. FINDINGS: Findings suggestive of early left upper lobe infiltrate. There is no demonstrated pleural abnormality. Normal size heart. Normal mediastinum and galileo. Normal visualized pulmonary arteries. Normal visualized aortic arch and descending thoracic aorta. There are degenerative changes of the visualized thoracic spine. Normal visualized ribs, clavicles, and shoulders. There is no demonstrated abnormality of the visualized soft tissue structures of the upper abdomen. RAD/Chest 1 View (Portable) IMPRESSION: Findings suggestive of early left upper lobe infiltrate. Electronically Signed: Davide Christianson MD at 8:18 EST , Service support ,
[2021-08-07 08:48] VITALS: O2SAT 94
[2021-08-07] MEDS: dexAMETHasone 10 MG/ML Vial 6 MG IV (08:57)
[2021-08-07] MEDS: Acetaminophen 500 MG Tablet 1000 MG PO (08:57)
--- NOTE | 2021-08-07 11:00 | CM.ED ---
SOCIAL WORK Referral Source: Dr. Sanchez Reason for Consult: COVID-19 positive, requires home O2. Informed by Dr. Sanchez, patient requiring home O2. Patient with positive COVID-19 test result. Patient in agreement to have O2 set up through [employer]. Patient lives home with significant other and reports is a non-smoker. Patient does not have pulse ox at home. Informed patient a pulse ox will be provided for home going. [employer] and clinical documentation [place] [facility] [place]. RT to review home O2 with patient. Patient being discharged on 2L. CM notified for follow up. Plan: Home with home O2 Nita Rae MSW, [employer]
[2021-08-07 11:14] VITALS: BP 135/75; PULSE 88; RESP 17; TEMP 37.3; O2SAT 94
--- NOTE | 2021-08-08 14:28 | CASEMGMT ---
RN CM ED COVID Home O2 follow-up: TC to patient for ER follow-up. VM left to request return phone call.
--- NOTE | 2021-08-10 16:16 | CASEMGMT ---
RN [place] Home O2 ED follow-up: Patient states she is doing better today. Maintaining oxygen levels with oxygen on in the mid 90s. Patient states that she does not have any humidity on home oxygen and has been in contact with [facility]. Patient inquired when she should quarantine till and instructed 20 days from start of symptoms. Patient voiced understanding. Patient advised to follow up with Dr. Covarrubias.
== END 2021-08-07 11:18 | disposition home or self-care (01) ==
PROVIDERS: Emergency Provider Emergency Medicine; PCP Family Medicine Geriatric Medicine
DX: U07.1 COVID-19 (principal); J12.82 Pneumonia due to coronavirus disease 2019; J96.91 Respiratory failure, unspecified with hypoxia; E86.0 Dehydration; R19.7 Diarrhea, unspecified; E66.9 Obesity, unspecified; F41.9 Anxiety disorder, unspecified; F32.9 Major depressive disorder, single episode, unspecified; Z79.1 Long term (current) use of non-steroidal anti-inflammatories (NSAID); Z79.52 Long term (current) use of systemic steroids; Z90.49 Acquired absence of other specified parts of digestive tract
CPT/HCPCS: 71045; 80048; 85025; 87426; 96361; 96374; 96375; 99281; 99282; J7030; A4216; J2405

== ENCOUNTER 2021-12-04 15:11 | Outpatient (CLI) | payer MEDICAID, SELFPAY ==
[2021-12-04 17:19] LABS: Absolute Lymphocyte Count 2.28 X10^3/uL (0.83-4.51); Absolute Neutrophil Count 3.9 X10^3/uL (2.0-7.7); Basophil# 0.05 X10^3/uL; Basophil% 0.7 % (0-1); Eosinophil# 0.11 X10^3/uL; Eosinophils% 1.6 % (0-5); Hemoglobin 12.9 g/dL (12.0-15.0); Lymphocyte # 2.28 X10^3/ul (0.83-4.51); Lymphocyte % 33.8 % (19-41); Mean Corp Hgb Conc 33.1 g/dL (32-36); Mean Corpuscular Hgb 31.4 pg (27.0-32.0); Mean Corpuscular Volume 94.9 fL (81-99); Mean Platelet Vol. 9.8 fl (6.2-12.0); Monocyte# 0.35 X10^3/uL; Monocyte% 5.2 % (0-10); NRBC Flagged by Analyzer 0 % (0-5); Neutrophil # 3.89 X10^3/uL (2.7-7.7); Neutrophil % 57.8 % (47-70); Platelet Count 212 K/mm3 (150-450); RBC Distribution Width SD 41.9 fl (35.1-43.9); Red Blood Count 4.11 M/mm3 (4.2-5.4); White Blood Count 6.7 K/mm3 (4.4-11.0)
[2021-12-04 17:40] LABS: AST(SGOT) 21 U/L (15-37); Alanine Aminotransfer ALT/SGPT 33 U/L (13-56); Albumin, Serum 3.7 g/dL (3.2-5.0); Alkaline Phosphatase 105 U/L (45-117); Anion Gap 6 (5-15); BUN 20 mg/dL (7-18); BUN/Creat Ratio 26.7 RATIO (10-20); Calcium,Total 8.8 mg/dL (8.5-10.1); Chloride 108 mmol/L (98-107); Creatinine, Serum 0.75 mg/dL (0.55-1.02); EST Glomerular Filtration Rate 86 mL/min (>60); Est Glom Filt Rate - Afr Amer 104 mL/min (>60); Globulin 3.6 g/dL (2.2-4.2); Glucose 101 mg/dL (74-106); Protein, Total 7.3 g/dL (6.4-8.2); Sodium Level 141 mmol/L (136-145); Thyroid Stim Hormone (TSH) 1.12 uIU/mL (0.358-3.74)
== END 2021-12-04 23:59 | disposition home or self-care (01) ==
LOC: POLAB3 15:11
PROVIDERS: PCP Family Medicine Geriatric Medicine; Visit Provider Family Medicine Geriatric Medicine
DX: R53.83 Other fatigue (principal)
CPT/HCPCS: 36415; 80053; 84443; 85025

== ENCOUNTER 2021-12-11 08:21 | Outpatient (CLI) | payer MEDICAID, SELFPAY ==
--- NOTE | 2021-12-11 08:23 | BI_ITS ---
MAMMOGRAPHY - BILATERAL SCREENING 3-D TOMOSYNTHESIS REASON FOR EXAM: Female, 51 years old. SCREENING PERTINENT HISTORY: No significant family history. TECHNIQUE: 2-D mammograms and 3-D Tomosynthesis of the breast (s) were performed. CAD was performed. COMPARISON: 12/23/2019 FINDINGS: The breast composition is composed of scattered fibroglandular density. Scattered benign calcifications are seen. No dense spiculated masses or suspicious microcalcifications are identified. No architectural distortion is identified. There is no skin thickening or retraction. There has been no significant change since the prior study. BI/SCRN MAMM (CAD)W/YAMIL BILAT IMPRESSION: No mammographic signs of malignancy. Routine yearly mammograms recommended. ASSESSMENT CATEGORY: BIRADS Category 1: Negative. A letter regarding these results will be sent to the patient by the facility within 30 days. FOLLOW UP RECOMMENDATION: Yearly follow up mammogram recommended. (A) Approximately 10% of breast cancers are not detected by mammography. A normal mammogram should not delay biopsy of a clinically suspicious abnormality. Electronically Signed: Ruddy Velasquez MD at 10:35 EDT ,
== END 2021-12-11 23:59 | disposition home or self-care (01) ==
LOC: OPBI 08:21
PROVIDERS: PCP Family Medicine Geriatric Medicine; Visit Provider Family Medicine Geriatric Medicine
DX: Z12.31 Encounter for screening mammogram for malignant neoplasm of breast (principal)
CPT/HCPCS: 77063; 77067

== ENCOUNTER → 2022-05-17 | Outpatient (CLI) | payer MEDICAID, SELFPAY ==
--- NOTE | 2022-05-17 15:44 | RAD_ITS ---
EXAM: XR LEFT SHOULDER COMPLETE, 2 OR MORE VIEWS CLINICAL INDICATION: PAIN TECHNIQUE: Two or more views of the left shoulder. This report was created using [employer] report generation technology. COMPARISON: None. FINDINGS: BONES/JOINTS: Minimal degenerative spurring about the left AC joint. 2 mm rounded ossicle also projected just superior to the left AC joint. No acute fracture. No dislocation or AC joint widening. Normal alignment. Preservation of the joint space. No sclerotic or destructive changes observed. SOFT TISSUES: Unremarkable. No soft tissue swelling or gas. No radiopaque foreign body. OTHER: The visualized left upper ribs are intact. Visualized left lung is clear. RAD/Shoulder min 2 Views IMPRESSION: Minimal degenerative spurring about the left AC joint. No acute abnormality; no acute fracture, dislocation or AC joint widening. Electronically Signed: Lyndon Anton MD at 0:27 EDT ,
--- NOTE | 2022-05-17 15:44 | RAD_ITS ---
EXAM: XR RIGHT KNEE COMPLETE, 4 OR MORE VIEWS CLINICAL INDICATION: PAIN TECHNIQUE: Four or more views of the right knee. This report was created using [employer] report generation technology. COMPARISON: None. FINDINGS: BONES/JOINTS: Moderate degenerative narrowing of the medial compartment with surrounding osteophytes and mild subchondral sclerosis. Minimal degenerative spurring about the lateral compartment, which is not narrowed. There is also moderate degenerative spurring about the patellofemoral compartment. No acute fracture. No subluxation. Normal alignment. No destructive changes observed. SOFT TISSUES: Findings of a minimal suprapatellar knee effusion. No radiopaque foreign body. RAD/Knee 4 or More Views IMPRESSION: Degenerative osteoarthritis. No acute fracture. Electronically Signed: Lyndon Anton MD at 0:29 EDT ,
--- NOTE | 2022-05-17 15:44 | RAD_ITS ---
EXAM: XR LEFT KNEE COMPLETE, 4 OR MORE VIEWS CLINICAL INDICATION: PAIN TECHNIQUE: Four or more views of the left knee. This report was created using [employer] report generation technology. COMPARISON: Right knee radiographs of this date. FINDINGS: BONES/JOINTS: Moderate degenerative narrowing of the medial compartment, with minimal subchondral sclerosis and small marginal osteophytes. Minimal degenerative spurring about the lateral compartment, which is not narrowed. There is also minimal degenerative spurring about the patellofemoral joint space. No acute fracture. No dislocation. Normal alignment. No lytic osseous lesions. SOFT TISSUES: Findings of a minimal suprapatellar knee effusion. RAD/Knee 4 or More Views IMPRESSION: Degenerative osteoarthritis, less severe than on the right. No acute fracture or dislocation. Electronically Signed: Lyndon Anton MD at 0:31 EDT ,
--- NOTE | 2022-05-17 15:44 | RAD_ITS ---
EXAM: XR LEFT ELBOW COMPLETE, 3 OR MORE VIEWS CLINICAL INDICATION: PAIN TECHNIQUE: Frontal, lateral and oblique views of the left elbow. This report was created using [employer] report generation technology. COMPARISON: None. FINDINGS: BONES/JOINTS: Unremarkable. There is no displacement of the anterior or posterior fat pads. No acute fracture. No subluxation. Normal alignment. Preservation of the joint space. No destructive or sclerotic lesions. SOFT TISSUES: Unremarkable. No soft tissue swelling or gas. No radiopaque foreign body. RAD/Elbow min 3 Views IMPRESSION: Negative left elbow. Electronically Signed: Lyndon Anton MD at 0:25 EDT ,
== END | disposition home or self-care (01) ==
LOC: RAD 15:42
PROVIDERS: PCP Family Medicine Geriatric Medicine; Referring Provider Family Medicine Geriatric Medicine; Visit Provider Family Medicine Geriatric Medicine
DX: M25.562 Pain in left knee (principal); M25.522 Pain in left elbow; M25.512 Pain in left shoulder; M25.561 Pain in right knee
CPT/HCPCS: 73030; 73080; 73564

== ENCOUNTER → 2022-06-04 | Outpatient (CLI) | payer MEDICAID, SELFPAY ==
[2022-06-04 17:14] LABS: Absolute Neutrophil Count 6.4 X10^3/uL (2.0-7.7); Basophil# 0.05 X10^3/uL; Basophil% 0.5 % (0-1); Hematocrit 42.9 % (37-47); Hemoglobin 14.3 g/dL (12.0-15.0); Lymphocyte % 26.8 % (19-41); Mean Corp Hgb Conc 33.3 g/dL (32-36); Mean Corpuscular Hgb 31.8 pg (27.0-32.0); Mean Corpuscular Volume 95.3 fL (81-99); Mean Platelet Vol. 10.2 fl (6.2-12.0); Monocyte# 0.51 X10^3/uL; Monocyte% 5.3 % (0-10); NRBC Flagged by Analyzer 0 % (0-5); Neutrophil # 6.39 X10^3/uL (2.7-7.7); Neutrophil % 65.9 % (47-70); Platelet Count 216 K/mm3 (150-450); RBC Distribution Width CV 12.9 % (11.6-14.6); RBC Distribution Width SD 45.1 fl (35.1-43.9); White Blood Count 9.7 K/mm3 (4.4-11.0)
[2022-06-04 17:37] LABS: Vitamin D,25 Hydroxy 14.3 ng/mL
[2022-06-04 17:39] LABS: AST(SGOT) 9 U/L (15-37); Alanine Aminotransfer ALT/SGPT 29 U/L (13-56); Albumin, Serum 3.7 g/dL (3.2-5.0); Alkaline Phosphatase 98 U/L (45-117); Anion Gap 7 (5-15); BUN 23 mg/dL (7-18); BUN/Creat Ratio 26.3 RATIO (10-20); Calcium,Total 9.4 mg/dL (8.5-10.1); Chloride 108 mmol/L (98-107); Creatinine, Serum 0.87 mg/dL (0.55-1.02); EST Glomerular Filtration Rate 72 mL/min (>60); Est Glom Filt Rate - Afr Amer 87 mL/min (>60); Globulin 3.7 g/dL (2.2-4.2); Glucose 121 mg/dL (74-106); Potassium 4.4 mmol/L (3.5-5.1); Protein, Total 7.4 g/dL (6.4-8.2); Sodium Level 141 mmol/L (136-145); Thyroid Stim Hormone (TSH) 0.94 uIU/mL (0.358-3.74)
== END | disposition home or self-care (01) ==
LOC: POLAB3 12:20
PROVIDERS: PCP Family Medicine Geriatric Medicine; Visit Provider Family Medicine Geriatric Medicine
DX: R53.83 Other fatigue (principal); E55.9 Vitamin D deficiency, unspecified
CPT/HCPCS: 36415; 80053; 82306; 84443; 85025

== ENCOUNTER 2022-08-12 08:05 | Emergency (ER) | payer MEDICAID, SELFPAY ==
[2022-08-12 08:06] VITALS: BP 174/88; PULSE 88; RESP 18; TEMP 36.2; O2SAT 94; BMI 47.8
--- NOTE | 2022-08-12 08:18 | EDS_ITS ---
HPI History of Present Illness Chief Complaint: Shortness of Breath Detail of Chief Complaint: Cough and shortness of breath Informant: patient Onset/Context/Timing Onset: Month(s) Context: Gradual Onset Timing: Waxes and wanes Current Severity: Moderate Maximum Severity: Moderate Narrative Narrative: Patient presents secondary to cough and shortness of breath. She states she first noticed sinus congestion in May and thought it was just related to her allergies. She treated this with her normal allergy treatment but noted her symptoms seem to get worse. She is been taking NyQuil intermittently as needed. She denies fever. She has had increased cough with some yellow-tinged sputum production. She has not tested for COVID or influenza. [facility] Medical History Anxiety COVID-19 Depression Home Medications citalopram 20 mg tablet 20 mg PO DAILY 03/08/21 [History Last Taken Unknown] doxepin 10 mg capsule 10 mg PO DAILY 03/08/21 [History Last Taken Unknown] ipratropium bromide 42 mcg (0.06 %) nasal spray 1 spray intranasal DAILY 03/08/21 [History Last Taken Unknown] lidocaine 5 % topical patch 1 patch transdermal DAILY 03/08/21 [History Last Taken Unknown] meloxicam 15 mg tablet 15 mg PO DAILY 03/08/21 [History Last Taken Unknown] acetaminophen 650 mg tablet,extended release 650 mg PO Q12H 08/07/21 [History Last Taken Unknown] dexamethasone 6 mg tablet 6 mg PO DAILY #7 tabs 08/07/21 [Rx Last Taken Unknown] promethazine 25 mg tablet 25 mg PO Q6H PRN PRN Nausea #14 TABLETS 08/07/21 [Rx Last Taken Unknown] vitamin B complex 1 cap PO DAILY 08/07/21 [History Last Taken Unknown] doxycycline monohydrate 100 mg capsule 100 mg PO BID #20 caps 08/12/22 [Rx Last Taken Unknown] prednisone 20 mg tablet 40 mg PO DAILY #8 tabs 08/12/22 [Rx Last Taken Unknown] Allergy/AdvReac Type Severity Reaction Status Date / Time No Known Allergies Allergy Verified 08/12/22 08:08 Social History Smoking Status: Never smoker ROS ROS ED Constitutional Constitutional ED: Denies chills or fever(s) Eyes Eyes: Denies change in vision or discharge from eye(s) ENT ENT ED: Denies discharge from eye(s), rhinorrhea or sore throat Cardiovascular Cardiovascular: Denies chest pain or palpitations Respiratory/Chest Respiratory/Chest: Reports cough, dyspnea and sputum Gastrointestinal Gastrointestinal: Denies abdominal pain, diarrhea, nausea or vomiting Genitourinary Genitourinary ED: Denies dysuria Musculoskeletal Musculoskeletal: Denies back pain or extremity pain Integumentary Denies Abrasions or rash Neurologic Neurologic: Reports headache(s); Denies weakness Psychiatric Psychiatric: Denies anxiety or depression Allergic/Immunologic Allergic/Immunologic ED: Denies lip swelling or urticaria EXAM Physical Exam Const Vital Signs: 08/12/22 08:06 08/12/22 08:18 08/12/22 08:27 Temperature 97.1 F L Temperature Source Temporal Pulse Rate 88 60 Respiratory Rate 18 18 Respiratory Effort Normal Respiratory Depth Normal Respiratory Pattern Normal Normal Blood Pressure 174/88 H Blood Pressure Mean 116 Pulse Ox 94 Oxygen Delivery Method Room Air Positive well nourished and well developed General Appearance ED: well developed HEENT Reports normocephalic and head/scalp atraumatic Eyes PERRL and EOMs intact bilaterally Neck supple Chest Wall inspection of chest normal and palpation of chest normal Resp normal respiratory effort Resp Narrative: Mild rales with expiratory wheezes. Cardio regular rate and regular rhythm GI normal to inspection, nondistended, normoactive bowel sounds Palpation: soft Extremity normal to inspection Neuro oriented x3 and no sensory deficits noted Sensorium / Orientation: alert Motor Exam: strength 5/5 throughout Psych mental status grossly normal Skin no rashes or lesions noted MDM MDM MDM Narrative Medical decision making narrative: Swab for COVID and influenza obtained. Patient given aerosol treatments and two-view chest x-ray ordered. Radiography Chest X-Ray - ED: 2 View, Read by ED Physician, Chronic Changes and No Infiltrates Diagnostic Testing: Clinical Impression(s) from Imaging Studies Chest X-Ray 08/12/22 09:03 IMPRESSION: Interstitial infiltrates or edema. Electronically Signed: Luis Daniel Manrique MD at 9:24 EST , Treatment and Re-Evaluation Narrative: Two-view chest x-ray per my interpretation reveals no focal infiltrate. Chronic changes appreciated. Radiology feels her interstitial infiltrates are possible edema. After aerosol treatments are given lung sounds are improved but she still does have some scattered wheezes. She will be treated with prednisone and albuterol at home along with doxycycline for bronchitis. She is given Tylenol here for headache. Discharge Plan Triage Chief Complaint: Shortness of Breath ED Provider: Eva Mcfarland Dx/Rx/DC Orders Clinical Impression: Bronchitis Instructions: ED Bronchitis with Wheezing (Adult) Prescriptions: New doxycycline monohydrate 100 mg capsule 100 mg PO BID Qty: 20 0RF prednisone 20 mg tablet 40 mg PO DAILY Qty: 8 0RF No Action meloxicam 15 mg tablet 15 mg PO DAILY Label Comments: TAKE 1 TABLET BY MOUTH DAILY doxepin 10 mg capsule 10 mg PO DAILY Label Comments: TAKE 1 CAPSULE ONCE DAILY AT BEDTIME citalopram 20 mg tablet 20 mg PO DAILY Label Comments: TAKE 1 TABLET ONCE DAILY FOR 30 DAYS lidocaine 5 % adhesive patch,medicated 1 patch transdermal DAILY Label Comments: Use 1 (ONE) Patch topically once per day for 30 days. Apply to right knee, on 12HR, off 12HR ipratropium bromide 42 mcg (0.06 %) spray,non-aerosol 1 spray INTRANASAL DAILY Label Comments: Instill 1 spray into each nostril twice daily for 30 days. acetaminophen [Tylenol Arthritis] 650 mg Tablet Extended Release 650 mg PO Q12H vitamin B complex [B Complex] Capsule 1 cap PO DAILY dexamethasone 6 mg tablet 6 mg PO DAILY Qty: 7 0RF promethazine 25 mg tablet 25 mg PO Q6H PRN PRN (Reason: Nausea) Qty: 14 0RF Primary Care Provider: Beny Covarrubias Chi Referrals: Beny Covarrubias Chi, MD [Primary Care Provider] - 1 Week Disposition Disposition: Home, Self Care
[2022-08-12] MEDS: Ipratropium/Albuterol Sulfate 3 ML AMPUL.NEB INHALATION (08:26)
[2022-08-12 08:27] VITALS: PULSE 60; RESP 18
[2022-08-12] MEDS: Albuterol 2.5 MG/3 ML VIAL.NEB. INHALATION ×2 (08:30→08:48)
--- NOTE | 2022-08-12 09:03 | RAD_ITS ---
STUDY: X-RAY CHEST REASON FOR EXAM: Female, 52 years old. Cough TECHNIQUE: PA and lateral views of the chest. COMPARISON: August 07, 2021 FINDINGS: There are mild perihilar interstitial increased opacities. There is no demonstrated pleural abnormality. Normal size heart. Normal mediastinum and galileo. Normal visualized pulmonary arteries. Normal visualized aortic arch and descending thoracic aorta. Normal visualized thoracic spine. Normal visualized ribs, clavicles, and shoulders. There is no demonstrated abnormality of the visualized soft tissue structures of the upper abdomen. RAD/Chest PA and Lateral IMPRESSION: Interstitial infiltrates or edema. Electronically Signed: Luis Daniel Manrique MD at 9:24 EST ,
[2022-08-12] MEDS: Acetaminophen 500 MG Tablet 1000 MG PO (09:20)
[2022-08-12] MEDS: predniSONE 20 MG Tablet 60 MG PO (10:14)
[2022-08-12] MEDS: Doxycycline 100 MG CAPSULE PO (10:14)
[2022-08-12] MEDS: Albuterol Sulfate 8 gm Inhaler (60 puffs) 2 PUFF INHALATION (10:15)
== END 2022-08-12 10:17 | disposition home or self-care (01) ==
PROVIDERS: Emergency Provider Emergency Medicine; PCP Family Medicine Geriatric Medicine; Visit Provider Emergency Medicine
DX: J40 Bronchitis, not specified as acute or chronic (principal); R09.3 Abnormal sputum; R06.02 Shortness of breath
CPT/HCPCS: 71046; 87428; 94640; 99283

== ENCOUNTER → 2022-08-22 | Outpatient (CLI) | payer MEDICAID, SELFPAY ==
--- NOTE | 2022-08-22 14:50 | RAD_ITS ---
STUDY: X-RAY CHEST REASON FOR EXAM: Female, 52 years old. CHEST PAIN SOB TECHNIQUE: XR Chest 2 Views COMPARISON: 08.12.22 FINDINGS: There is no demonstrated pleural abnormality. Normal size heart. Normal mediastinum and galileo. Normal visualized pulmonary arteries. Normal visualized aortic arch and descending thoracic aorta. There are diffuse degenerative changes of the visualized thoracic spine. Normal visualized ribs, clavicles, and shoulders. There is no demonstrated abnormality of the visualized soft tissue structures of the upper abdomen. RAD/Chest PA and Lateral IMPRESSION: There are no acute findings. Electronically Signed: King Parker MD at 15:09 EST ,
== END | disposition home or self-care (01) ==
PROVIDERS: PCP Family Medicine Geriatric Medicine; Referring Provider Family Medicine Geriatric Medicine; Visit Provider Family Medicine Geriatric Medicine
DX: R06.02 Shortness of breath (principal)
CPT/HCPCS: 71046

== ENCOUNTER → 2022-10-18 | Outpatient (CLI) | payer MEDICAID, SELFPAY ==
--- NOTE | 2022-10-18 11:55 | RAD_ITS ---
STUDY: X-RAY - LEFT HAND REASON FOR EXAM: Female, 52 years old. Pain. TECHNIQUE: 3 view(s) of the hand. COMPARISON: None. FINDINGS: Mild arthrosis of the radiocarpal articulation. Normal distal radioulnar joint. Normal visualized carpal bones. Mild arthrosis of the radial carpal row wrist. Mild arthrosis of the first CMC joint. Normal second through fifth carpometacarpal joints. Normal metacarpi. Normal metacarpophalangeal joint of the thumb. Normal interphalangeal joint of the thumb. Normal proximal and distal phalanges of the thumb. Normal metacarpophalangeal joints of the second through fifth fingers. Normal proximal and distal interphalangeal joints of the second through fifth fingers. Normal phalanges of the second through fifth fingers. The soft tissue structures are unremarkable. RAD/Hand Min 3 Views IMPRESSION: Mild osteoarthritic changes as described. No acute abnormality, chondrocalcinosis or erosive changes. Electronically Signed: Jamari Belle, at 13:11 EST ,
== END | disposition home or self-care (01) ==
LOC: RAD 11:43
PROVIDERS: PCP Family Medicine Geriatric Medicine; Visit Provider Family Medicine Geriatric Medicine
DX: M79.642 Pain in left hand (principal)
CPT/HCPCS: 73130

== ENCOUNTER → 2022-12-10 | Outpatient (CLI) | payer MEDICAID, SELFPAY ==
[2022-12-10 16:42] LABS: Absolute Lymphocyte Count 2.15 X10^3/uL (0.83-4.51); Absolute Neutrophil Count 5.3 X10^3/uL (2.0-7.7); Basophil# 0.03 X10^3/uL; Basophil% 0.4 % (0-1); Eosinophils% 1.3 % (0-5); Hematocrit 40.6 % (37-47); Hemoglobin 13.3 g/dL (12.0-15.0); Lymphocyte # 2.15 X10^3/ul (0.83-4.51); Lymphocyte % 26.9 % (19-41); Mean Corp Hgb Conc 32.8 g/dL (32-36); Mean Corpuscular Hgb 32.3 pg (27.0-32.0); Mean Corpuscular Volume 98.5 fL (81-99); Mean Platelet Vol. 9.8 fl (6.2-12.0); Monocyte# 0.39 X10^3/uL; Monocyte% 4.9 % (0-10); NRBC Flagged by Analyzer 0 % (0-5); Neutrophil # 5.25 X10^3/uL (2.7-7.7); Neutrophil % 65.6 % (47-70); Platelet Count 213 K/mm3 (150-450); RBC Distribution Width CV 12.2 % (11.6-14.6); RBC Distribution Width SD 44.3 fl (35.1-43.9); Red Blood Count 4.12 M/mm3 (4.2-5.4)
[2022-12-10 17:15] LABS: AST(SGOT) 19 U/L (15-37); Alanine Aminotransfer ALT/SGPT 36 U/L (13-56); Albumin, Serum 3.5 g/dL (3.2-5.0); Alkaline Phosphatase 99 U/L (45-117); Anion Gap 4 (5-15); BUN 23 mg/dL (7-18); BUN/Creat Ratio 30.4 RATIO (10-20); Calcium,Total 8.8 mg/dL (8.5-10.1); Chloride 108 mmol/L (98-107); Cholesterol 189 mg/dL (200); Creatinine, Serum 0.76 mg/dL (0.55-1.02); EST Glomerular Filtration Rate 84 mL/min (>60); Est Glom Filt Rate - Afr Amer 102 mL/min (>60); Globulin 3.5 g/dL (2.2-4.2); Glucose 119 mg/dL (74-106); High Density Lipoprotein 37 mg/dL; Potassium 4.1 mmol/L (3.5-5.1); Sodium Level 138 mmol/L (136-145); Thyroid Stim Hormone (TSH) 1.12 uIU/mL (0.358-3.74); Triglycerides 236 mg/dL; Very Low Density Lipoprotein 47 mg/dL (5-40)
== END | disposition home or self-care (01) ==
LOC: POLAB3 10:32
PROVIDERS: PCP Family Medicine Geriatric Medicine; Visit Provider Family Medicine Geriatric Medicine
DX: R53.83 Other fatigue (principal); E78.5 Hyperlipidemia, unspecified
CPT/HCPCS: 36415; 80053; 80061; 84443; 85025

== ENCOUNTER → 2022-12-26 | Outpatient (CLI) | payer OTHER, MEDICAID, SELFPAY ==
--- NOTE | 2022-12-26 10:24 | MRI_ITS ---
STUDY: MRI LEFT HAND REASON FOR EXAM: Female, 52 years old. left index finger volar tendon sheath ganglion TECHNIQUE: Standardized fat and water weighted pulse sequences were obtained in all 3 orthogonal planes. COMPARISON: X-ray of the left hand dated December 18, 2022 FINDINGS: FIRST DIGIT: Normal visualized first metacarpus. Normal metacarpophalangeal joint. Normal interphalangeal joint. Normal proximal, and distal phalanges. Normal flexor and extensor tendons. There is no soft tissue abnormality. SECOND DIGIT: A small 6.7 mm fluid-filled ganglion cyst is present on the volar surface and outer aspect of the of the flexor tendon sheath at the MCP of the second finger. There is enhancement of the wall of the ganglion cyst on the postcontrast study but no internal enhancement. Normal visualized second metacarpus. Normal metacarpophalangeal joint. Normal proximal and distal interphalangeal joints. Normal proximal, middle and distal phalanges. Normal flexor and extensor tendons. There is no soft tissue abnormality. THIRD DIGIT: Normal visualized third metacarpus. Normal metacarpophalangeal joint. Normal proximal and distal interphalangeal joints. Normal proximal, middle and distal phalanges. Normal flexor and extensor tendons. There is no soft tissue abnormality. FOURTH DIGIT: Normal visualized fourth metacarpus. Normal metacarpophalangeal joint. Normal proximal and distal interphalangeal joints. Normal proximal, middle and distal phalanges. Normal flexor and extensor tendons. There is no soft tissue abnormality. FIFTH DIGIT: Normal visualized fifth metacarpus. Normal metacarpophalangeal joint. Normal proximal and distal interphalangeal joints. Normal proximal, middle and distal phalanges. Normal flexor and extensor tendons. There is no soft tissue abnormality. Normal visualized thenar and hypothenar muscles. Normal lumbricalis and interosseous muscles. There are no solid, cystic or lipomatous masses in the remaining aspects of the hand. MRI/Upper Ext No Joint W/WO Cont IMPRESSION: 1. A small 6.7 mm fluid-filled ganglion cyst is present on the volar surface and outer aspect of the of the flexor tendon sheath at the MCP of the second finger Electronically Signed: James Estrada MD at 8:30 EDT ,
== END | disposition home or self-care (01) ==
LOC: MRI 10:11
PROVIDERS: PCP Family Medicine Geriatric Medicine; Referring Provider Orthopaedic Surgery Sports Medicine; Visit Provider Orthopaedic Surgery Sports Medicine
DX: M67.442 Ganglion, left hand (principal)
CPT/HCPCS: 73220; A9575

== ENCOUNTER 2023-01-16 09:27 | Day surgery (SDC) | payer OTHER, MEDICAID, SELFPAY ==
[2023-01-16] VITALS (7 sets, daily range): BP systolic 110–126; BP diastolic 49–81; PULSE 73–78; RESP 15–22; TEMP 36.7–36.8; O2SAT 96–98; BMI 50.5
[2023-01-16] MEDS: Lactated Ringers 1,000 ML 15 ML IV (10:14)
--- NOTE | 2023-01-16 11:10 | GANG_PTH ---
PATIENT: KAREN MIGUEL LOC: [facility] U#:[id number] AGE/SX: 52/F ROOM: RE01/16/[address]: Dr. Sarmad Cruz MD : 1970 BED: DIS: 01/16/2023 SPEC #: [id number] RECD: 01/16/23 13:20 STATUS: PETRA ARTI #: [id number] HODA: 01/16/23 11:[address]: Sarmad Cruz DEPT: SURGICAL PATHOLOGY RECD BY: Danita Lugo ENTERED: 01/17/23 09:08 SP TYPE: GANGLION OTHR DR: Dr. Beny Covarrubias MD Tissues: GANGLION CYST Procedures: Surgery Specimen Level III HEADER OPERATION: Left index finger volar ganglion cyst excision PRE-OP DIAGNOSIS: Left index finger volar side at the MCP ganglion cyst TISSUE SUBMITTED: Left index finger volar ganglion cyst MICROSCOPIC DIAGNOSIS Left index finger volar ganglion cyst, excision: Consistent with ganglion cyst. SJ:karan 01/18/2023 COMMENT Case has been reviewed in consultation with Dr. Gifford who concurs with the above diagnosis. IDC:AM MICROSCOPIC DESCRIPTION Slides are reviewed. GROSS DESCRIPTION Received in fixative is one container labeled with the patient's name and designated left index finger volar ganglion cyst. The specimen consists of a piece of berumen soft tissue measuring 0.5 x 0.4 x 0.3 cm. The entire specimen is submitted in one cassette. / ANNA:karan 01/17/2023 TC:5 CPT: 00510
--- NOTE | 2023-01-16 12:07 | PCM.HP.STD ---
HPI - General HPI Narrative KAREN CACERES, is a 52 F who presents left idex finger volar side at the MCP ganglion cyst excision. Patient wants to go ahead. They did have a recent change where they had a fall and a radial neck fracture so I will do some range of motion testing of the elbow when they are off to sleep today for the procedure but otherwise no changes to their health. Left hand marked at the cyst. Discussed the recovery associated with this keep this clean and dry gentle range of motion of the hand we will send in a short prescription for oral narcotics as they do have recent fracture and on the received about 2 days pain control for that from the emergency department. Patient understands narcotic counseling done and no further questions or concerns. R#: [id number] Acct: [id number] Name:? KAREN CACERES Rep #: [id number] : 1970 ? ? Provider: Dr. Sarmad Cruz MD Age/Sex:? 52/F ? ? Location: [facility] [place] Status: Signed Intake Vital Signs ? 08/12/2208:06 01/15/2307:49 Height 5 ft 3 in 5 ft 3 in Intake Visit Reasons:?left hand Is patient in pain?: Yes Allergies Seasonal Allergies: Uncoded Allergy (Verified 01/15/23 10:03) Other Medications citalopram 20 mg tablet (Celexa) 20 mg PO DAILY 03/08/21 [History Confirmed 01/15/23] doxepin 10 mg capsule 10 mg PO PRN PRN Sleep 03/08/21 [History Confirmed 01/15/23] ipratropium bromide 42 mcg (0.06 %) nasal spray 1 spray intranasal DAILY 03/08/21 [History Confirmed 01/15/23] lidocaine 5 % topical patch 1 patch transdermal DAILY 03/08/21 [History Confirmed 01/15/23] acetaminophen 650 mg tablet,extended release 650 mg PO Q12H 08/07/21 [History Confirmed 01/15/23] vitamin B complex 1 cap PO DAILY 08/07/21 [History Confirmed 01/15/23] meloxicam 15 mg tablet 15 mg PO DAILY 01/09/23 [History Confirmed 01/15/23] oxycodone 10 mg tablet tablet PO 01/15/23 [History Confirmed 01/15/23] PFSH Medical History?(Updated 01/15/23 @ 10:32 by Sarmad Cruz MD) Anxiety Arthritis COVID-19 Depression Fracture of radial neck, left, closed Ganglion of flexor tendon sheath of left index finger Gastric reflux Heel spur History of pain when walking History of steroid therapy Injury of back Kidney stones Leg cramps Nausea Non-smoker Plantar fasciitis Primary osteoarthritis of both knees Wears glasses Surgical History? History of appendectomy History of carpal tunnel release History of cholecystectomy History of tonsillectomy History of wisdom tooth extraction Hx of varicose vein ligation and stripping Family History? Mother Arthritis Social History? household members:? significant other Smoking Status:? Never smoker alcohol intake:? current what type of physical activity do you participate in:? walking HPI left hand Details: Parts of this documentation were recorded by a scribe, this documentation accurately reflects the service provided and the decisions made by me, Dr. Sarmad Cruz MD 01/15/23 0838. KAREN CACERES is a 52 year old F here today for? was pending glanglion cyst excision, apparently fell and fractured her left proximal radius over the weekend.? She had a fall onto the wrist over the weekend was seen in [facility].? Apparently has a proximal radius fracture some pain in the lateral aspect of the elbow as well as some pain in the distal third metacarpal phalangeal joint. Ortho Exam General General: Yes no acute distress Neurologic: Yes alert and Yes oriented x3 Psychologic: Yes reasonable and appropriate Left Wrist/Hand Left Wrist: Yes ROM-Extension 0-60 and Yes ROM-Flexion 0-80 Motor: EPL: 5, FDP-2: 5, 1st Dorsal Interosseous: 5 and APB: 5 Sensation: Radial: I, Ulnar: I and Median: I WRIST: Able to make a full fist but swelling over the third metacarpal phalangeal joints normal flexion and extension. Left Elbow Skin/Wound: Yes CDI, No eccymosis, No erythema and Yes Swelling Sensation: Radial: I, Ulnar: I and Median: I Motor: Elbow Extension: 4, Elbow Flexion: 4, EPL: 4, FDP-2: 4 and 1st Dorsal Interosseous: 4 ELBOW: Pain to the lateral side of the elbow closed injury. Supplemental Info Radiographs outside source reviewed from 01/13 left hand multiple views were obtained and there is no report I see no obvious fracture in the hand.? There is a nondisplaced radial neck fracture at the left elbow elbow joint is congruent and the report again noted. 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 S50.02XA Left wrist sprain? S63.502A Fracture of radial neck, left, closed? S52.132A Comment bill cpt non op mgt radial neck fracture Assessment and Plan Assessment and Plan (1) Contusion of elbow, left: ?Status:?Acute (2) Left wrist sprain: ?Status:?Acute ?Plan: 52 F she seems to have suffered a contusion to the metacarpal phalangeal joint third digit on the left side recommend nonoperative management rest ice anti-inflammatories and gentle range of motion for this avoiding heavy lifting or gripping for 2 weeks.? No obvious fracture is noted on the x-ray.? (3) Fracture of radial neck, left, closed: ?Status:?Acute ?Plan: 52-year-old female with a nondisplaced left radial neck fracture.? Generally these are recommended for nonoperative management with sling we have given the patient starting some gentle early elbow range of motion.? The patient has a surgery for small ganglion cyst excision tomorrow I offered the patient the option of delaying this but they would still like to go ahead.? At the same time I will be able to assess the range of motion of the elbow to ensure that there is no blocks to motion.? Patient understood and wished to proceed with that and no further questions or concerns. [facility] Medical History (Updated 01/15/23 @ 10:32 by Sarmad Cruz MD) Anxiety Arthritis COVID-19 Depression Fracture of radial neck, left, closed Ganglion of flexor tendon sheath of left index finger Gastric reflux Heel spur History of pain when walking History of steroid therapy Injury of back Kidney stones Leg cramps Nausea Non-smoker Plantar fasciitis Primary osteoarthritis of both knees Wears glasses Home Medications citalopram 20 mg tablet (Celexa) 20 mg PO DAILY 03/08/21 [History Last Taken Unknown] doxepin 10 mg capsule 10 mg PO PRN PRN Sleep 03/08/21 [History Last Taken Unknown] ipratropium bromide 42 mcg (0.06 %) nasal spray 1 spray intranasal DAILY 03/08/21 [History Last Taken Unknown] lidocaine 5 % topical patch 1 patch transdermal DAILY 03/08/21 [History Last Taken Unknown] acetaminophen 650 mg tablet,extended release 650 mg PO Q12H 08/07/21 [History Last Taken Unknown] vitamin B complex 1 cap PO DAILY 08/07/21 [History Last Taken Unknown] meloxicam 15 mg tablet 15 mg PO DAILY 01/09/23 [History Last Taken Unknown] oxycodone 10 mg tablet tablet PO 01/15/23 [History Last Taken Unknown] Allergy/AdvReac Type Severity Reaction Status Date / Time Seasonal Allergies: Uncoded Allergy Other Verified 01/16/23 10:04 Family History Mother Arthritis Surgical History History of appendectomy History of carpal tunnel release History of cholecystectomy History of tonsillectomy History of wisdom tooth extraction Hx of varicose vein ligation and stripping Social History household members: significant other Smoking Status: Never smoker alcohol intake: current what type of physical activity do you participate in: walking Vital Signs Vital Signs Vital Signs: 01/16/23 10:04 01/16/23 10:04 Temperature 98.1 F Temperature Source Temporal Pulse Rate 75 Respiratory Rate 22 H Respiratory Pattern Normal Blood Pressure 110/49 L Blood Pressure Mean 69 Blood Pressure Source Monitor Blood Pressure Position Semi-Fowlers Blood Pressure Location Left Arm Pulse Ox 98 Oxygen Delivery Method Room Air Weight Weight: 285 lb 0.923 oz Body Mass Index (BMI) 50.5
[2023-01-16] MEDS: Bupivacaine 0.25% 30 ML Vial (12:36)
--- NOTE | 2023-01-16 12:49 | OP.PCM_ITS ---
Problems Associated Problem List Diagnoses (1) Ganglion of flexor tendon sheath of left index finger: Report of Operation Date of Procedure: 01/16/23 Pre-Operative Diagnosis: left index finger flexor tendon sheath volar ganglion cyst Post-Operative Diagnosis: same Surgery/Procedure Performed:: left index finger flexor tendon sheath volar ganglion cyst excision Description of Surgical Findings:: small tissue appearance to be ganglion cyst with gelatinous material inside arising from ulnar side flexor tendon sheath Surgeon: Sarmad Cruz Type of Anesthesia: MAC and Topical Anesth Anesthesiologist: Terry Steward Estimated Blood Loss (mL): 5 Description of Procedure: Patient to the operating room theater. Placed supine on the table. 3 g IV Ancef administered. Local/MAC anesthesia used. Light sedation achieved. Left hand prepped and draped in the usual sterile fashion hand table to the patient's left side. Chlorhexidine-based prep solution used allowing over 3 minutes drying time prior to draping. Preoperative timeout performed confirming site patient and surgery. Began by identifying the site of the volar ganglion cyst at the MCP joint at the index finger left side. Made a transverse incision. Used 2 cc of quarter percent bupivacaine plain around the incision site. Carried dissection down through skin subcutaneous tissue achieved meticulous hemostasis. Identified the ganglion cyst. Arising from the ulnar side flexor tendon sheath. Excise this in 1 specimen and sent. Had clear gelatinous material inside. Sent this to pathology in 1 specimen. Excised a small amount of the flexor ronald along with the ganglion cyst. Specimen about 2 mm. Decompress the cyst fully. Protected the neurovascular bundle as well as the flexor tendons. Case terminated wound thoroughly irrigated with normal saline. Skin closed with 4-0 Monocryl. Steri- Strips applied after the skin was cleaned with wet and dry dressing followed by verification of Adaptic gauze and loosely wrapped fausto wrap. Patient woken up from the sedation transferred off the operating table and taken postanesthetic care unit in stable addition. All sponge needle instrument counts were correct no complications plan for the patient early range of motion of the finger no heavy lifting or gripping and follow-up in the office in 2 days time. Complications none Admit VTE Documentation VTE Present on Admission: No VTE Mechan Device Prophylaxis: SCD's VTE Pharm Prophylaxis ordered?: No Reason prophylaxis not ordered:: Treatment Not Indicated Procedures Musculoskeletal [id number]: Other Procedure See Report
--- NOTE | 2023-01-16 12:55 | DCINST_ITS ---
Discharge Instructions Diet Discharge Diet: No restrictions Activity Lifting Restrictions: no heavy lifting or gripping, ROM of fingers as tolerated. Dressing / Incision Call your doctor if your incision/area has: Continuous Slow Oozing, Sudden Increased Bleeding, Increased Pain/ Swelling, Increased Redness, Foul Smelling Discharge and Swelling at the incision site Remove Dressing in: leave in place till F/U Follow Up Care Please Follow Up With: Sarmad Cruz MD When: 2 days Test Results: Test results from this visit will be discussed in further detail at your follow- up appointment, if applicable. Discharge Plan Admission Attending Provider: Sarmad Cruz Primary Care Provider: Beny Covarrubias Chi Discharge Orders/Prescriptions Prescriptions: New oxycodone-acetaminophen [Percocet] 5-325 mg tablet 1 tab PO Q6H MDD 6 PRN (Reason: pain) 4 Days Qty: 14 0RF No Action oxycodone 10 mg tablet PO doxepin 10 mg capsule 10 mg PO PRN PRN (Reason: Sleep) Label Comments: TAKE 1 CAPSULE ONCE DAILY AT BEDTIME citalopram [Celexa] 20 mg tablet 20 mg PO DAILY Label Comments: TAKE 1 TABLET ONCE DAILY FOR 30 DAYS lidocaine 5 % adhesive patch,medicated 1 patch transdermal DAILY Label Comments: Use 1 (ONE) Patch topically once per day for 30 days. Apply to right knee, on 12HR, off 12HR ipratropium bromide 42 mcg (0.06 %) spray,non-aerosol 1 spray INTRANASAL DAILY Label Comments: Instill 1 spray into each nostril twice daily for 30 days. acetaminophen [Tylenol Arthritis] 650 mg Tablet Extended Release 650 mg PO Q12H vitamin B complex [B Complex] Capsule 1 cap PO DAILY meloxicam 15 mg tablet 15 mg PO DAILY Label Comments: TAKE 1 TABLET BY MOUTH DAILY Referrals / Follow Up: Sarmad Cruz MD [Med Staff - Active Staff] - Beny Covarrubias Chi, MD [Primary Care Provider] - Disposition Disposition (needs filled in before D/C Order can be placed): Home, Self Care
[2023-01-16] MEDS: HYDROcodone Bitartrate/Apap 5/325 Tablet PO (13:32)
== END 2023-01-16 14:02 | disposition home or self-care (01) ==
LOC: SDC 09:28 → AC 09:30
PROVIDERS: PCP Family Medicine Geriatric Medicine; Referring Provider Orthopaedic Surgery Sports Medicine; Visit Provider Orthopaedic Surgery Sports Medicine
PROC: (CPT 26160; principal; 2023-01-16 10:55)
DX: M67.442 Ganglion, left hand (principal); S52.135A Nondisplaced fracture of neck of left radius, initial encounter for closed fracture; S63.92XA Sprain of unspecified part of left wrist and hand, initial encounter; S50.02XA Contusion of left elbow, initial encounter; W19.XXXA Unspecified fall, initial encounter
CPT/HCPCS: 26160; 01810; 88304; J7120; J2405

== ENCOUNTER → 2023-06-10 | Outpatient (CLI) | payer OTHER, SELFPAY ==
[2023-06-10 14:36] LABS: Absolute Lymphocyte Count 2.04 X10^3/uL (0.83-4.51); Absolute Neutrophil Count 5.4 X10^3/uL (2.0-7.7); Basophil# 0.07 X10^3/uL; Basophil% 0.9 % (0-1); Eosinophil# 0.12 X10^3/uL; Eosinophils% 1.5 % (0-5); Hematocrit 42.1 % (37-47); Hemoglobin 13.5 g/dL (12.0-15.0); Lymphocyte # 2.04 X10^3/ul (0.83-4.51); Lymphocyte % 24.8 % (19-41); Mean Corp Hgb Conc 32.1 g/dL (32-36); Mean Corpuscular Volume 99.8 fL (81-99); Mean Platelet Vol. 9.5 fl (6.2-12.0); Monocyte# 0.48 X10^3/uL; Monocyte% 5.8 % (0-10); NRBC Flagged by Analyzer 0 % (0-5); Neutrophil # 5.42 X10^3/uL (2.7-7.7); Platelet Count 202 K/mm3 (150-450); RBC Distribution Width CV 12.1 % (11.6-14.6); RBC Distribution Width SD 45.1 fl (35.1-43.9); Red Blood Count 4.22 M/mm3 (4.2-5.4); White Blood Count 8.2 K/mm3 (4.4-11.0)
[2023-06-10 15:03] LABS: AST(SGOT) 12 U/L (15-37); Alanine Aminotransfer ALT/SGPT 24 U/L (13-56); Albumin, Serum 3.5 g/dL (3.2-5.0); Alkaline Phosphatase 106 U/L (45-117); Anion Gap 5 (5-15); BUN 22 mg/dL (7-18); BUN/Creat Ratio 29.5 RATIO (10-20); Calcium,Total 9.4 mg/dL (8.5-10.1); Chloride 108 mmol/L (98-107); Cholesterol 205 mg/dL (200); Creatinine, Serum 0.75 mg/dL (0.55-1.02); EST Glomerular Filtration Rate 86 mL/min (>60); Est Glom Filt Rate - Afr Amer 104 mL/min (>60); Globulin 3.6 g/dL (2.2-4.2); Glucose 113 mg/dL (74-106); High Density Lipoprotein 35 mg/dL; Protein, Total 7.1 g/dL (6.4-8.2); Sodium Level 140 mmol/L (136-145); Thyroid Stim Hormone (TSH) 0.94 uIU/mL (0.358-3.74); Triglycerides 308 mg/dL; Very Low Density Lipoprotein 62 mg/dL (5-40)
== END | disposition home or self-care (01) ==
LOC: POLAB3 13:43
PROVIDERS: PCP Family Medicine Geriatric Medicine; Visit Provider Family Medicine Geriatric Medicine
DX: R53.83 Other fatigue (principal); E78.5 Hyperlipidemia, unspecified
CPT/HCPCS: 36415; 80053; 80061; 84443; 85025

== ENCOUNTER → 2023-12-13 | Outpatient (CLI) | payer OTHER, SELFPAY ==
[2023-12-13 11:36] LABS: Absolute Neutrophil Count 3.7 X10^3/uL (2.0-7.7); Basophil# 0.06 X10^3/uL; Basophil% 0.9 % (0-1); Eosinophil# 0.17 X10^3/uL; Eosinophils% 2.6 % (0-5); Hemoglobin 13.1 g/dL (12.0-15.0); Lymphocyte % 33.7 % (19-41); Mean Corp Hgb Conc 32.8 g/dL (32-36); Mean Corpuscular Hgb 31.6 pg (27.0-32.0); Mean Corpuscular Volume 96.4 fL (81-99); Mean Platelet Vol. 9.4 fl (6.2-12.0); Monocyte# 0.39 X10^3/uL; NRBC Flagged by Analyzer 0 % (0-5); Neutrophil # 3.67 X10^3/uL (2.7-7.7); Neutrophil % 56.2 % (47-70); Platelet Count 211 K/mm3 (150-450); RBC Distribution Width CV 11.9 % (11.6-14.6); RBC Distribution Width SD 41.7 fl (35.1-43.9); Red Blood Count 4.15 M/mm3 (4.2-5.4); White Blood Count 6.5 K/mm3 (4.4-11.0)
[2023-12-13 11:58] LABS: AST(SGOT) 24 U/L (15-37); Alanine Aminotransfer ALT/SGPT 34 U/L (13-56); Albumin, Serum 3.5 g/dL (3.2-5.0); Alkaline Phosphatase 109 U/L (45-117); Anion Gap 5 (5-15); BUN 15 mg/dL (7-18); BUN/Creat Ratio 19.7 RATIO (10-20); Calcium,Total 9.3 mg/dL (8.5-10.1); Chloride 109 mmol/L (98-107); Cholesterol 202 mg/dL (200); Creatinine, Serum 0.76 mg/dL (0.55-1.02); EST Glomerular Filtration Rate 84 mL/min (>60); Est Glom Filt Rate - Afr Amer 101 mL/min (>60); Globulin 3.6 g/dL (2.2-4.2); Glucose 138 mg/dL (74-106); High Density Lipoprotein 37 mg/dL; Potassium 3.7 mmol/L (3.5-5.1); Protein, Total 7.1 g/dL (6.4-8.2); Sodium Level 141 mmol/L (136-145); Thyroid Stim Hormone (TSH) 1.57 uIU/mL (0.358-3.74); Triglycerides 176 mg/dL; Very Low Density Lipoprotein 35 mg/dL (5-40)
[2023-12-13 15:39] LABS: Hemoglobin A1c 5.5 % (3.8-5.6)
== END | disposition home or self-care (01) ==
LOC: POLAB3 10:23
PROVIDERS: PCP Family Medicine Geriatric Medicine; Visit Provider Family Medicine Geriatric Medicine
DX: R53.83 Other fatigue (principal); E11.65 Type 2 diabetes mellitus with hyperglycemia; E78.5 Hyperlipidemia, unspecified
CPT/HCPCS: 36415; 80053; 80061; 83036; 84443; 85025

== ENCOUNTER → 2023-12-19 | Outpatient (CLI) | payer OTHER, SELFPAY ==
--- NOTE | 2023-12-19 07:24 | BI_ITS ---
MAMMOGRAPHY - BILATERAL SCREENING REASON FOR EXAM: Female, 53 years old. Routine annual screening examination. PERTINENT HISTORY: Non-contributory. TECHNIQUE: Digital bilateral breast yamil (3D mammographic acquisition) in the CC and MLO projections. 2-D mediolateral oblique (MLO) and craniocaudad (CC) views of both breasts were obtained. CAD: Full Field Digital Mammography with Computer Added Detection was performed. COMPARISON: Comparison is made with prior study December 11, 2021 and December 23, 2019. FINDINGS: Breast Composition: There are scattered areas of fibroglandular density. There are no dominant masses or suspicious calcifications. Stable small bilateral axillary lymph nodes. No other significant abnormalities are identified. There has been no significant change since the prior study. BI/SCRN MAMM (CAD)W/YAMIL BILAT IMPRESSION: Stable bilateral screening mammogram. Yearly follow-up mammogram recommended. (A) ASSESSMENT CATEGORY: BIRADS Category 2: Benign. A letter regarding these results will be sent to the patient by the facility within 30 days. Approximately 10% of breast cancers are not detected by mammography. A normal mammogram should not delay biopsy of a clinically suspicious abnormality. [id number] Electronically Signed: Davide Christianson MD at 9:12 EDT ,
== END | disposition home or self-care (01) ==
LOC: OPBI 07:22
PROVIDERS: PCP Family Medicine Geriatric Medicine; Referring Provider Family Medicine Geriatric Medicine; Visit Provider Family Medicine Geriatric Medicine
DX: Z12.31 Encounter for screening mammogram for malignant neoplasm of breast (principal)
CPT/HCPCS: 77063; 77067

== ENCOUNTER → 2024-04-08 | Outpatient (CLI) | payer OTHER, SELFPAY ==
--- NOTE | 2024-04-08 17:00 | RAD_ITS ---
EXAM: XR CHEST, 2 VIEWS CLINICAL INDICATION: WHEEZING TECHNIQUE: Frontal and lateral views of the chest. COMPARISON: 08/22/2022 FINDINGS: LUNGS AND PLEURAL SPACES: No significant abnormality. No consolidation or edema. No pneumothorax. No effusion. HEART: No significant abnormality. Cardiac silhouette not enlarged. MEDIASTINUM: Central airways and mediastinal contour are unremarkable. BONES/JOINTS: No significant abnormality. No acute fracture. SOFT TISSUES: No significant abnormality. RAD/Chest PA and Lateral IMPRESSION: No radiographic evidence of acute cardiopulmonary disease. Electronically Signed: Renard Penn DO at 22:07 EDT ,
== END | disposition home or self-care (01) ==
PROVIDERS: PCP Family Medicine Geriatric Medicine; Referring Provider Family Medicine Geriatric Medicine; Visit Provider Family Medicine Geriatric Medicine
DX: R68.83 Chills (without fever) (principal); R06.2 Wheezing
CPT/HCPCS: 71046; 87631

== ENCOUNTER → 2024-06-05 | Outpatient (CLI) | payer OTHER, SELFPAY ==
[2024-06-05 09:47] LABS: Absolute Lymphocyte Count 2.74 X10^3/uL (0.83-4.51); Absolute Neutrophil Count 4.3 X10^3/uL (2.0-7.7); Basophil# 0.06 X10^3/uL; Basophil% 0.8 % (0-1); Eosinophil# 0.11 X10^3/uL; Eosinophils% 1.4 % (0-5); Hematocrit 43.9 % (37-47); Hemoglobin 14.7 g/dL (12.0-15.0); Lymphocyte # 2.74 X10^3/ul (0.83-4.51); Lymphocyte % 35.9 % (19-41); Mean Corp Hgb Conc 33.5 g/dL (32-36); Mean Corpuscular Hgb 32.4 pg (27.0-32.0); Mean Corpuscular Volume 96.7 fL (81-99); Mean Platelet Vol. 9.5 fl (6.2-12.0); Monocyte# 0.43 X10^3/uL; Monocyte% 5.6 % (0-10); NRBC Flagged by Analyzer 0 % (0-5); Neutrophil # 4.25 X10^3/uL (2.7-7.7); Neutrophil % 55.6 % (47-70); Platelet Count 240 K/mm3 (150-450); RBC Distribution Width CV 13.1 % (11.6-14.6); RBC Distribution Width SD 46.8 fl (35.1-43.9); Red Blood Count 4.54 M/mm3 (4.2-5.4); White Blood Count 7.6 K/mm3 (4.4-11.0)
[2024-06-05 10:21] LABS: ALB/GLOB Ratio 1.2 RATIO (0.9-2.4); AST(SGOT) 20 U/L (15-37); Alanine Aminotransfer ALT/SGPT 40 U/L (13-56); Alkaline Phosphatase 83 U/L (45-117); Anion Gap 6 (5-15); BUN 17 mg/dL (7-18); BUN/Creat Ratio 23.2 RATIO (10-20); Calcium,Total 9.4 mg/dL (8.5-10.1); Chloride 108 mmol/L (98-107); Cholesterol 202 mg/dL (200); Creatinine, Serum 0.73 mg/dL (0.55-1.02); EST Glomerular Filtration Rate 87 mL/min (>60); Est Glom Filt Rate - Afr Amer 105 mL/min (>60); Globulin 3.2 g/dL (2.2-4.2); Glucose 86 mg/dL (74-106); High Density Lipoprotein 52 mg/dL; Potassium 3.9 mmol/L (3.5-5.1); Protein, Total 7.2 g/dL (6.4-8.2); Sodium Level 140 mmol/L (136-145); Triglycerides 130 mg/dL; Very Low Density Lipoprotein 26 mg/dL (5-40)
== END | disposition home or self-care (01) ==
LOC: POLAB3 09:01
PROVIDERS: PCP Family Medicine Geriatric Medicine; Visit Provider Family Medicine Geriatric Medicine
DX: I10 Essential (primary) hypertension (principal); E78.5 Hyperlipidemia, unspecified
CPT/HCPCS: 36415; 80053; 80061; 84443; 85025

== ENCOUNTER 2024-08-02 19:18 | Emergency (ER) | payer OTHER, SELFPAY ==
[2024-08-02 19:18] VITALS: BP 136/79; PULSE 76; RESP 16; TEMP 37.1; O2SAT 100; BMI 44.0
--- NOTE | 2024-08-02 19:29 | RAD_ITS ---
EXAM: XR LEFT SHOULDER COMPLETE, 2 OR MORE VIEWS CLINICAL INDICATION: injury TECHNIQUE: Two or more views of the left shoulder. COMPARISON: No relevant prior studies available. FINDINGS: BONES/JOINTS: Degenerative findings of the AC joint. Degenerative findings of the shoulder joint. No acute fracture. No subluxation. Normal alignment. No sclerotic or destructive changes observed. SOFT TISSUES: Unremarkable. No soft tissue swelling or gas. No radiopaque foreign body. RAD/Shoulder min 2 Views IMPRESSION: No acute findings in the left shoulder. Electronically Signed: King Parker MD at 20:04 EST ,
--- NOTE | 2024-08-02 19:29 | RAD_ITS ---
EXAM: XR LEFT RIBS AND AP CHEST, 3 OR MORE VIEWS CLINICAL INDICATION: injury TECHNIQUE: Frontal and oblique views of the left ribs and frontal view of the chest. COMPARISON: 04/08/2024 FINDINGS: LUNGS AND PLEURAL SPACES: Unremarkable. No consolidation or edema. No pneumothorax. No effusion. HEART: Heart appears enlarged. MEDIASTINUM: Central airways and mediastinal contour are unremarkable. BONES/JOINTS: Unremarkable. No evidence of displaced rib fractures. RAD/Ribs Uni Min 3V w/PA Chest IMPRESSION: No acute findings in the chest or left ribs. Electronically Signed: King Parker MD at 20:05 EST ,
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
[2024-08-02 21:11] VITALS: BP 122/69; PULSE 50; RESP 16; TEMP 36.7; O2SAT 99
== END 2024-08-02 21:20 | disposition home or self-care (01) ==
PROVIDERS: Emergency Provider Emergency Medicine; PCP Family Medicine Geriatric Medicine; Visit Provider Emergency Medicine
DX: S43.52XA Sprain of left acromioclavicular joint, initial encounter (principal); S20.20XA Contusion of thorax, unspecified, initial encounter; Z79.1 Long term (current) use of non-steroidal anti-inflammatories (NSAID); V43.52XA Car driver injured in collision with other type car in traffic accident, initial encounter; Z90.49 Acquired absence of other specified parts of digestive tract; Z86.16 Personal history of COVID-19; F32.A Depression, unspecified; F41.9 Anxiety disorder, unspecified
CPT/HCPCS: 71101; 73030; 99284

== ENCOUNTER → 2024-09-28 | Outpatient (CLI) | payer OTHER, SELFPAY ==
--- NOTE | 2024-09-28 14:00 | RAD_ITS ---
PROCEDURE: Left knee radiographs REASON FOR EXAM: Pain TECHNIQUE: Two views of the left knee COMPARISON: 05/17/2022 FINDINGS: Negative for acute fracture or malalignment. Small joint effusion. Moderate/severe medial and patellofemoral compartment osteoarthritis including near [id number] articulation and marginal osteophytes. RAD/Knee 1 or 2 Views IMPRESSION: See above. Reading Location: [facility]
--- NOTE | 2024-09-28 14:00 | RAD_ITS ---
PROCEDURE: SHOULDER MIN 2 VIEWS REASON FOR EXAM: Pain. TECHNIQUE: Four view left shoulder series. COMPARISON: Left shoulder study of 08/02/2024. RAD/Shoulder min 2 Views IMPRESSION: Moderate left acromioclavicular joint degenerative changes are seen, with assoc iated marked joint narrowing. The left glenohumeral joint demonstrates mild degenerative changes, without carlos alberto arent joint narrowing. Limited imaging of the spine shows [id number] degenerative changes. No acute fracture or dislocation is seen. Reading Location: [id number]
== END | disposition home or self-care (01) ==
PROVIDERS: PCP Family Medicine Geriatric Medicine; Referring Provider Family Medicine Geriatric Medicine; Visit Provider Family Medicine Geriatric Medicine
DX: M25.512 Pain in left shoulder (principal); M25.562 Pain in left knee
CPT/HCPCS: 73030; 73560

== ENCOUNTER → 2024-10-22 | Outpatient (CLI) | payer OTHER, SELFPAY ==
--- NOTE | 2024-10-22 15:20 | RAD_ITS ---
PROCEDURE: ELBOW MIN 3 VIEWS REASON FOR EXAM: Left elbow pain. TECHNIQUE: Three-view left elbow series COMPARISON: None. RAD/Elbow min 3 Views IMPRESSION: No left elbow joint effusion is seen. No erosive process is seen. Minimal degenerative changes are seen at the humeroulnar articulation, without significant associated joint space narrowing. Satisfactory alignment is seen. No fracture or dislocation is evident. Reading Location: [id number]
== END | disposition home or self-care (01) ==
PROVIDERS: PCP Family Medicine Geriatric Medicine; Referring Provider Family Medicine Geriatric Medicine; Visit Provider Family Medicine Geriatric Medicine
DX: M25.522 Pain in left elbow (principal)
CPT/HCPCS: 73080

== ENCOUNTER → 2024-11-05 | Outpatient (CLI) | payer OTHER, SELFPAY ==
--- NOTE | 2024-11-05 06:43 | MRI_ITS ---
PROCEDURE: Noncontrast MRI of the left shoulder. 11/05/2024 REASON FOR EXAM: PAIN, ROTATOR CUFF SYNDROME TECHNIQUE: Multiplanar, multisequence MRI images of the left shoulder were obtained without IV contrast. COMPARISON: Left shoulder radiographs 09/28/2024 FINDINGS The marrow signal of the included osseous structures is within normal limits. No acute fracture, dislocation, or abnormal marrow replacement process of the left shoulder. Moderate degenerative change of the acromioclavicular and glenohumeral joints. No significant joint effusion or evidence of loose intra-articular body. No soft tissue mass or drainable fluid collection of the left shoulder. Minimal amount of fluid signal in the subacromial/subdeltoid bursa. No significant rotator cuff muscle atrophy. No Hill-Sachs lesion or bony Bankart deformity. There is heterogeneous abnormal increased signal of the posterior superior and inferior labrum on images 9-10 of the coronal proton density fat saturated sequence. There is some heterogeneous enlargement of the extra-articular portion of the long head of the biceps tendon on images 18-24 of the axial T2 sequence, incompletely included on this study. The distal subscapularis tendon is intact. [id number] patchy tendinopathy of the otherwise intact distal infraspinatus tendon. There is a lobulated heterogeneous 1.7 cm nodular area of abnormal increased T2 signal involving the mid to distal insertional fibers of the supraspinatus tendon on images 7-9 of the coronal proton density fat saturated sequence. No os acromiale. Minimal subcortical cystic changes inferior glenoid and superolateral left humeral head. MRI/Upper Ext Joint Only(Routine) IMPRESSION: No acute bony abnormality of the left shoulder. A heterogeneous T2 hyperintense lobulated area of nodularity involving the mid to anterior distal insertional fibers of the supraspinatus tendon likely represents a focal high-grade partial if not comple te tendon tear. The distal infraspinatus tendon is intact. No significant rotator cuff muscle atrophy. Moderate degenerative changes of the acromioclavicular and glenohumeral joints. Heterogeneous enlargement of the extra-articular portion of the long head of th e biceps tendon, which may be due to moderate tendinopathy or longitudinal split tear, incompletely included. Heterogeneous abnormal increased signal of the posterior/superior as well as th e inferior labrum, which may be due to areas of labral degeneration versus labral tears. A 1.1 cm more focal area of lobulated septated fluid signal near the inferior margin of the glenoid this suspicious for a paralabral cyst. Reading Location: [facility]
== END | disposition home or self-care (01) ==
LOC: MRI 06:34
PROVIDERS: PCP Family Medicine Geriatric Medicine; Referring Provider Family Medicine Geriatric Medicine; Visit Provider Family Medicine Geriatric Medicine
DX: M25.512 Pain in left shoulder (principal); M75.102 Unspecified rotator cuff tear or rupture of left shoulder, not specified as traumatic
CPT/HCPCS: 73221

== ENCOUNTER → 2024-12-14 | Outpatient (CLI) | payer OTHER, SELFPAY ==
[2024-12-14 10:48] LABS: Absolute Lymphocyte Count 2.48 X10^3/uL (0.83-4.51); Basophil# 0.04 X10^3/uL; Basophil% 0.6 % (0-1); Eosinophil# 0.17 X10^3/uL; Eosinophils% 2.4 % (0-5); Hematocrit 41.6 % (37-47); Hemoglobin 14.1 g/dL (12.0-15.0); Lymphocyte # 2.48 X10^3/ul (0.83-4.51); Lymphocyte % 35.2 % (19-41); Mean Corp Hgb Conc 33.9 g/dL (32-36); Mean Corpuscular Hgb 32.6 pg (27.0-32.0); Mean Corpuscular Volume 96.1 fL (81-99); Mean Platelet Vol. 9.6 fl (6.2-12.0); Monocyte# 0.37 X10^3/uL; Monocyte% 5.2 % (0-10); NRBC Flagged by Analyzer 0 % (0-5); Neutrophil # 3.95 X10^3/uL (2.7-7.7); Platelet Count 204 K/mm3 (150-450); RBC Distribution Width SD 42.8 fl (35.1-43.9); Red Blood Count 4.33 M/mm3 (4.2-5.4); White Blood Count 7.1 K/mm3 (4.4-11.0)
[2024-12-14 11:30] LABS: ALB/GLOB Ratio 1.6 RATIO (0.9-2.4); AST(SGOT) 19 U/L (<=31); Alanine Aminotransfer ALT/SGPT 26 U/L (<=34); Albumin, Serum 4.1 g/dL (3.5-5.0); Alkaline Phosphatase 103 U/L (35-104); Anion Gap 10 (5-15); BUN 16 mg/dL (4-19); BUN/Creat Ratio 23.9 RATIO (10-20); Calcium,Total 9.3 mg/dL (7.6-11.0); Carbon Dioxide 24.2 mmol/L (21.0-32.0); Chloride 107 mmol/L (98-108); Cholesterol 190 mg/dL (<=200); Creatinine, Serum 0.68 mg/dL (0.70-1.20); EST Glomerular Filtration Rate 102 (>60); Globulin 2.6 g/dL (2.2-4.2); Glucose 91 mg/dL (70-99); High Density Lipoprotein 44 mg/dL; Low Density Lipoprotein Calc. 125 mg/dL; Potassium 4.3 mmol/L (3.3-5.1); Protein, Total 6.7 g/dL (5.9-8.4); Sodium Level 141 mmol/L (133-145); Thyroid Stim Hormone (TSH) 0.818 uIU/mL (0.300-4.200); Triglycerides 106 mg/dL; Very Low Density Lipoprotein 21 mg/dL (5-40)
== END | disposition home or self-care (01) ==
LOC: LAB 10:04
PROVIDERS: PCP Family Medicine Geriatric Medicine; Referring Provider Family Medicine Geriatric Medicine; Visit Provider Family Medicine Geriatric Medicine
DX: I10 Essential (primary) hypertension (principal); E78.5 Hyperlipidemia, unspecified
CPT/HCPCS: 36415; 80053; 80061; 84443; 85025

== ENCOUNTER 2025-02-10 09:12 | Day surgery (SDC) | payer OTHER, SELFPAY ==
--- NOTE | 2025-02-02 08:26 | EKG12_ITS ---
Test Reason : PRE OP Blood Pressure : */* mmHG Vent. Rate : 85 BPM Atrial Rate : 85 BPM P-R Int : 132 ms QRS Dur : 90 ms QT Int : 382 ms P-R-T Axes : 19 -21 76 degrees QTcB Int : 454 ms Sinus rhythm with Premature supraventricular complexes Otherwise normal ECG Confirmed by SERGIO HOWELL, JYOTSNA ([id number]), continuity editor SHIRIN TAMEZ ([id number]) on 02/03/2025 7:04:03 AM Referred By: Sarmad Cruz Confirmed By: JYOTSNA HILL MD
--- NOTE | 2025-02-03 20:49 | PAT.ANESEVAL ---
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 When Was Last Pacemaker Check QUESTION #4 FULL TEXT: You/Your Family Experience fever (hyperthermia) with Anesthesia Last Oral Intake Last Oral intake: Last Oral Intake NPO since Meds taken in AM with sips of water? 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 - surgical elastic knitter hand frame: PONV - surgical elastic knitter hand frame Female Yes 01/27/25 09:10 HX of Motion Sickness Yes 01/27/25 09:10 HX of N/V After Surgery Yes 01/27/25 09:10 Non-Smoker Yes 01/27/25 09:10 Duration of Surgery greater Yes 01/27/25 09:10 than 60 minutes Number of Risk Factors 5 01/27/25 09:10 PONV Score Severe Risk 01/27/25 09:10 Height & Weight Height & Weight: Anesthesia: Height & Weight Height 5 ft 3 in 11/23/24 09:32 Respiratory Assessment Respiratory Assessment - surgical elastic knitter hand frame: Respiratory Tract Infection Hx - surgical elastic knitter hand frame Hx Respiratory Tract Infection No 01/27/25 09:10 STOP Sleep Apnea STOP Sleep Apnea - surgical elastic knitter hand frame: STOP Sleep Apnea - surgical elastic knitter hand frame Hx Hypertension No 01/27/25 09:10 Hx Sleep Apnea No 01/27/25 09:10 CPAP BIPAP Do you snore loudly (louder No 01/27/25 09:10 than talking or can be heard Do you often feel tired/ No 01/27/25 09:10 fatigued/ sleepy during daytime? Has anyone observed you stop No 01/27/25 09:10 breathing during sleep? STOP Results Negative 01/27/25 09:10 QUESTION #5 FULL TEXT : Do you snore loudly (louder than talking or can be heard through closed doors)? 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 Specify any problems Hx of Preganancy in last 3 No 01/27/25 09:10 Months Nurse Filling Out Transfusion DSCHRIBER 01/27/25 09:10 & Questions: Date: 01/27/25 01/27/25 09:10 Time: 09:12 01/27/25 09:10 Patient unable to answer at this time (ie. confused, unrespo /Reproduction History /Reproductive History - surgical elastic knitter hand frame: /Reproductive Hx- surgical elastic knitter hand frame Hx Now No 01/27/25 09:10 Gestational Age (in weeks): EDC: Hx Hx Para Hx Section SAB No 01/27/25 09:10 [facility] Medical History (Updated 01/27/25 @ 09:22 by Antoinette Mendoza) Post-menopausal History of steroid therapy Easy bruising Migraine headache Heartburn History of edema Left rotator cuff tear Left shoulder pain Fracture of radial neck, left, closed Wears glasses Arthritis Injury of back Non-smoker History of pain when walking Leg cramps Primary osteoarthritis of both knees Ganglion of flexor tendon sheath of left index finger Nausea COVID-19 Anxiety Home Medications ?Medication ?Instructions ?Recorded ?Last Taken ?Type citalopram 20 mg tablet (Celexa) 20 mg PO QHS 03/08/21 Unknown History doxepin 10 mg capsule 10 mg PO PRN PRN Sleep 03/08/21 Unknown History ipratropium bromide 42 mcg (0.06 1 spray intranasal DAILY 03/08/21 Unknown History %) nasal spray lidocaine 5 % topical patch 1 patch transdermal DAILY PRN pain 03/08/21 Unknown History acetaminophen 650 mg 650 mg PO Q12H 08/07/21 Unknown History tablet,extended release vitamin B complex 1 cap PO DAILY 08/07/21 Unknown History meloxicam 15 mg tablet 15 mg PO DAILY 01/09/23 Unknown History phentermine 37.5 mg capsule 37.5 mg PO DAILY 07/26/23 Unknown History semaglutide 0.25 mg or 0.5 mg (2 0.25 mg subcut QWEEK 08/02/24 Unknown History mg/1.5 mL) subcutaneous pen injector (Ozempic) baclofen 10 mg tablet 10 mg PO QHS PRN pain 11/09/24 Unknown History Allergy/AdvReac Type Severity Reaction Status Date / Time Seasonal Allergies: Uncoded Allergy Other Verified 01/27/25 09:05 Family History Mother Arthritis Surgical History (Updated 01/27/25 @ 09:22 by Antoinette Mendoza) Hx of hand surgery Hx of varicose vein ligation and stripping History of wisdom tooth extraction History of appendectomy History of cholecystectomy History of carpal tunnel release History of tonsillectomy Social History household members: significant other Smoking Status: Never smoker alcohol intake: current what type of physical activity do you participate in: walking Audit: Pertinent Findings Pertinent Findings EKG Perinent findings: February 02, 2025. Sinus rhythm with PSVC's. Otherwise normal EKG. Recommendation Anesthesia Recommendation Anesthesia recommendation: OPTIMIZED for anesthesia
[2025-02-10] VITALS (12 sets, daily range): BP systolic 108–127; BP diastolic 42–72; PULSE 67–88; RESP 16; TEMP 36–36.7; O2SAT 92–99; BMI 42.1
[2025-02-10] MEDS: Lactated Ringers 1,000 ML 15 ML IV (09:30)
--- NOTE | 2025-02-10 10:03 | PCM.PRE.AN2 ---
ASA Classification* ASA Classification ASA Classification: 3 (BMI>40) Assessment & Plan Anesthesia* Anesthesia Assessment Anesthesia Assessment: Discussed sedation and/or anesthesia options, risks, benefits, and alternatives with patient/parents/legal guardian/POA. Questions invited. The patient/parents/legal guardian/POA seems to understand and agrees to proceed with anesthesia plan. Reviewed the physical assessment, medical history, allergy history and patient home medications list prior to surgery/procedure/anesthetic and documented any changes. Performed airway and anesthesia risk assessments. Personally confirmed ozempic held as of 01/28/25 Anesthesia Type Anesthesia Type: General and Block (Interscalene block, left. Informed consent for block obtained. Risks/benefits/alternatives explained inlcuding risk of nerve damage. Patient verbalized understanding and gave informed consent to proceed with block.) History Source History Obtained from:: Patient and Chart Anesthesia Focused Assessment* Temperature: 98.0 F Pulse Rate: 81 Blood Pressure: 124/49 Respiratory Rate: 16 Pulse Ox: 99 Oxygen Delivery Method: Room Air Airway Assessment Mouth opens: >3 cm Mallampati Score: III Teeth Condition: Intact Neck Range of motion (ROM): Full ROM Labs Anesthesia Preop lab: CBC WBC 7.1 K/mm3 (4.4-11.0) 12/14/24 10:14 12/14/24 RBC 4.33 M/mm3 (4.2-5.4) 12/14/24 10:14 12/14/24 Hgb 14.1 g/dL (12.0-15.0) 12/14/24 10:14 12/14/24 Hct 41.6 % (37-47) 12/14/24 10:14 12/14/24 Plt Count 204 K/mm3 (150-450) 12/14/24 10:14 12/14/24 CHEMISTRY Potassium 4.3 mmol/L (3.3-5.1) 12/14/24 10:14 12/14/24 Sodium 141 mmol/L (133-145) 12/14/24 10:14 12/14/24 Phosphorus 3.1 mg/dL (2.5-4.9) 05/14/12 07:33 05/14/12 BUN 16 mg/dL (4-19) 12/14/24 10:14 12/14/24 Creatinine 0.68 mg/dL (0.70-1.20) L 12/14/24 10:14 12/14/24 Glucose 91 mg/dL (70-99) 12/14/24 10:14 12/14/24 TSH 0.818 uIU/mL (0.300-4.200) 12/14/24 10:14 12/14/24 COAG Pre-Assessment Diagnosis/Proposed Procedure Planned Operative Procedure(s): LEFT SHOULDER ARTHROSCOPY SUBCROMIAL DECOMPRESSION RTC REPAIR Anesthesia History 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 When Was Last Pacemaker Check QUESTION #4 FULL TEXT: You/Your Family Experience fever (hyperthermia) with Anesthesia Last Oral Intake Last Oral intake: Last Oral Intake NPO since 00:00 02/10/25 09:44 Meds taken in AM with sips of No 02/10/25 09:44 water? 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 - costume rental clerk: PONV - costume rental clerk Female Yes 01/27/25 09:10 HX of Motion Sickness Yes 01/27/25 09:10 HX of N/V After Surgery Yes 01/27/25 09:10 Non-Smoker Yes 01/27/25 09:10 Duration of Surgery greater Yes 01/27/25 09:10 than 60 minutes Number of Risk Factors 5 01/27/25 09:10 PONV Score Severe Risk 01/27/25 09:10 Height & Weight Height & Weight: Anesthesia: Height & Weight Height 5 ft 3 in 02/10/25 09:44 Weight: 108 kg 02/10/25 09:44 Body Mass Index (BMI) 42.1 02/10/25 09:44 Respiratory Assessment Respiratory Assessment - costume rental clerk: Respiratory Tract Infection Hx - costume rental clerk Hx Respiratory Tract Infection No 01/27/25 09:10 STOP Sleep Apnea STOP Sleep Apnea - costume rental clerk: STOP Sleep Apnea - costume rental clerk Hx Hypertension No 01/27/25 09:10 Hx Sleep Apnea No 01/27/25 09:10 CPAP BIPAP Do you snore loudly (louder No 01/27/25 09:10 than talking or can be heard Do you often feel tired/ No 01/27/25 09:10 fatigued/ sleepy during daytime? Has anyone observed you stop No 01/27/25 09:10 breathing during sleep? STOP Results Negative 01/27/25 09:10 QUESTION #5 FULL TEXT : Do you snore loudly (louder than talking or can be heard through closed doors)? 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 Use History - costume rental clerk: Tobacco Use History - costume rental clerk Tobacco Use Smoking Status Never smoker 01/27/25 09:10 Hx Tobacco Use No 01/27/25 09:10 Years Smoking Packs Smoked per Day Smoking Cessation Date was within the last 15 years Hx Smoking Cessation Date Hx Smoking Cessation Counseling Hematologic Medial History Hematologic Hx - costume rental clerk: Hematologic Medical Hx - private inquiry agent Hx of Blood Transfusion No 01/27/25 09:10 Hx of Transfusion in last 3 No 01/27/25 09:10 Months Date of Last Transfusion (if within last 3 months) Ever experience any problems No 01/27/25 09:10 with transfusion(s)? Specify any problems Hx of Preganancy in last 3 No 01/27/25 09:10 Months Nurse Filling Out Transfusion DSCHRIBER 01/27/25 09:10 & Questions: Date: 01/27/25 01/27/25 09:10 Time: 09:12 01/27/25 09:10 Patient unable to answer at this time (ie. confused, unrespo /Reproduction History /Reproductive History - costume rental clerk: /Reproductive Hx- costume rental clerk Hx Now No 01/27/25 09:10 Gestational Age (in weeks): EDC: Hx Hx Para Hx Section SAB No 01/27/25 09:10 Active Medications Active Medications: Current Medications Generic Name Dose Route Start Last Admin Trade Name Freq PRN Reason Stop Dose Admin Lactated Ringer's 1,000 mls @ 15 mls/hr 02/10/25 09:30 02/10/25 09:30 IV 15 mls/hr .Q48H HONORIO Administration PFSH Medical History (Updated 01/27/25 @ 09:22 by Antoinette Mendoza) Post-menopausal History of steroid therapy Easy bruising Migraine headache Heartburn History of edema Left rotator cuff tear Left shoulder pain Fracture of radial neck, left, closed Wears glasses Arthritis Injury of back Non-smoker History of pain when walking Leg cramps Primary osteoarthritis of both knees Ganglion of flexor tendon sheath of left index finger Nausea COVID-19 Anxiety Home Medications ?Medication ?Instructions ?Recorded ?Last Taken ?Type citalopram 20 mg tablet (Celexa) 20 mg PO QHS 03/08/21 02/09/25 History doxepin 10 mg capsule 10 mg PO PRN PRN Sleep 03/08/21 02/09/25 History ipratropium bromide 42 mcg (0.06 1 spray intranasal DAILY 03/08/21 02/09/25 History %) nasal spray lidocaine 5 % topical patch 1 patch transdermal DAILY PRN pain 03/08/21 02/09/25 History acetaminophen 650 mg 650 mg PO Q12H 08/07/21 02/09/25 History tablet,extended release vitamin B complex 1 cap PO DAILY 08/07/21 02/09/25 History meloxicam 15 mg tablet 15 mg PO DAILY 01/09/23 02/09/25 History phentermine 37.5 mg capsule 37.5 mg PO DAILY 07/26/23 02/09/25 History semaglutide 0.25 mg or 0.5 mg (2 0.25 mg subcut QWEEK 08/02/24 01/28/25 History mg/1.5 mL) subcutaneous pen injector (Ozempic) baclofen 10 mg tablet 10 mg PO QHS PRN pain 11/09/24 02/09/25 History Allergy/AdvReac Type Severity Reaction Status Date / Time Seasonal Allergies: Uncoded Allergy Other Verified 02/10/25 09:44 Family History Mother Arthritis Surgical History (Updated 01/27/25 @ 09:22 by Antoinette Mendoza) Hx of hand surgery Hx of varicose vein ligation and stripping History of wisdom tooth extraction History of appendectomy History of cholecystectomy History of carpal tunnel release History of tonsillectomy Social History household members: significant other Smoking Status: Never smoker alcohol intake: current what type of physical activity do you participate in: walking Review of Systems (Anesthesia) ROS Narrative System reviewed and no additional complaints, except as documented. Physical Exam Const alert, oriented x3 and average body habitus Resp normal respiratory effort, normal air movement and clear to auscultation bilaterally Cardio regular rate, regular rhythm, no murmurs and diaphoretic
--- NOTE | 2025-02-10 11:41 | PCM.HP.STD ---
HPI - General HPI Narrative KAREN MIGUEL, is a 55 F who presents for left shoulder arthroscopy, subacromial decompression, rotator cuff repair, possible biceps tenodesis. No changes to history and physical exam. Patient understands wished to proceed. Risk alternatives benefits discussed postoperative instructions as well as narcotic counseling. No further questions or concerns. Shoulder marked. MR#: [id number] Acct: [id number] Name: KAREN MIGUEL Rep #: [id number] : 1970 Provider: Dr. Sarmad Cruz MD Age/Sex: 54/F Location: [facility] [place] Status: Signed Intake Vital Signs 11/09/2508:01 11/23/2508:32 Height 5 ft 3 in 5 ft 3 in Weight: 242 lb 8 oz 240 lb BMI 42.9 42.5 Intake Visit Reasons: left shoulder Chief Complaint: Left shoulder pain Accompanied by: Self Is patient in pain?: Yes Pain scale (1-10): 3 Allergies Seasonal Allergies: Uncoded Allergy (Verified 11/23/24 09:33) Other Medications ?Medication ?Instructions ?Recorded ?Confirmed ?Type citalopram 20 mg tablet (Celexa) 20 mg PO DAILY 03/08/21 11/23/24 History doxepin 10 mg capsule 10 mg PO PRN PRN Sleep 03/08/21 11/23/24 History ipratropium bromide 42 mcg (0.06 1 spray intranasal DAILY 03/08/21 11/23/24 History %) nasal spray lidocaine 5 % topical patch 1 patch transdermal DAILY 03/08/21 11/23/24 History acetaminophen 650 mg 650 mg PO Q12H 08/07/21 11/23/24 History tablet,extended release vitamin B complex 1 cap PO DAILY 08/07/21 11/23/24 History meloxicam 15 mg tablet 15 mg PO DAILY 01/09/23 11/23/24 History phentermine 37.5 mg capsule 37.5 mg PO DAILY 07/26/23 11/23/24 History semaglutide 0.25 mg or 0.5 mg (2 0.25 mg subcut QWEEK 08/02/24 11/23/24 History mg/1.5 mL) subcutaneous pen injector (Ozempic) baclofen 10 mg tablet 10 mg PO QHS 11/09/24 11/23/24 History Have you fallen in the past year?: Yes PFSH Medical History Left rotator cuff tear Left shoulder pain Fracture of radial neck, left, closed Wears glasses History of steroid therapy Arthritis Kidney stones Injury of back Gastric reflux Non-smoker History of pain when walking Leg cramps Primary osteoarthritis of both knees Ganglion of flexor tendon sheath of left index finger Nausea Plantar fasciitis Heel spur COVID-19 Depression Anxiety Surgical History Hx of varicose vein ligation and stripping History of wisdom tooth extraction History of appendectomy History of cholecystectomy History of carpal tunnel release History of tonsillectomy Family History Mother Arthritis Social History household members: significant other Smoking Status: Never smoker alcohol intake: current what type of physical activity do you participate in: walking HPI left shoulder Details: This documentation accurately reflects the service provided and the decisions made by me, Dr. Sarmad Cruz MD 11/23/24 0831. Part of today?s visit was documented by [ ], acting as scribe. KAREN MIGUEL is a 54 year old F here today for left shoulder pain rotator cuff tear and possible SLAP tear degenerative tear and paralabral cyst of the superior biceps anchor. Wants to proceed with surgery. Coding Level of Care Code No Charge Diagnoses Left shoulder pain M25.512 Left rotator cuff tear M75.102 Assessment and Plan Assessment and Plan (1) Left shoulder pain: Status: Acute Plan: 54-year-old female left shoulder rotator cuff tear and possible SLAP tear degenerative tearing of the long head biceps attachment. Went over the options with this surgery in the form of left shoulder arthroscopy, subacromial decompression, rotator cuff repair, possible biceps tenodesis. Pros and cons risks and benefits were discussed with the patient including but not limited to infection, pain, stiffness, bleeding, damage to surrounding structures, neurovascular injury, recurrence or retear, failure or wear of hardware or fixation, instability, fracture, deep vein thrombosis and pulmonary embolism, anesthetic risks, , patient dissatisfaction, need for further surgery and other risks. Patient understood and wished to proceed with surgery, and signed the informed consent documentation. Patient counselled on non-operative and operative means of treating shoulder pain. Conservative options include but not limited to: 1. Rest and Activity Modification: Giving your shoulder time to heal by avoiding movements that cause pain can help. This may involve limiting overhead activities or heavy lifting. 2. Physical Therapy: A physical therapist can guide you through exercises that strengthen the muscles around the shoulder, improve flexibility, and reduce strain on the rotator cuff tendon. 3. Ice and Heat Therapy: Applying ice to the shoulder can help reduce swelling and pain, especially after activity. Heat can be helpful to relax tense muscles and improve blood flow before exercises. 4. Anti-Inflammatory Medications: Phhx-aom-torewfi medications like ibuprofen or naproxen can help reduce pain and inflammation in the tendon. 5. Corticosteroid Injections: If the pain is more severe, a steroid injection can reduce inflammation in the shoulder and provide relief for a longer period. 6. Platelet-Rich Plasma (PRP) Injection: This treatment involves using your own blood to promote healing in the tendon. The plasma is rich in growth factors that can encourage tissue repair. 7. TENS (Transcutaneous Electrical Nerve Stimulation): This therapy uses a small electrical current to help manage pain and promote healing by stimulating nerves. (2) Left rotator cuff tear: Status: Acute Clinical Quality Measures Falls Risk Screening/Assistive Devices Have you fallen in the past year?: Yes Ortho Exam General General: Yes no acute distress Neurologic: Yes alert and Yes oriented x3 Psychologic: Yes reasonable and appropriate [facility] Medical History (Updated 01/27/25 @ 09:22 by Antoinette Mendoza) Post-menopausal History of steroid therapy Easy bruising Migraine headache Heartburn History of edema Left rotator cuff tear Left shoulder pain Fracture of radial neck, left, closed Wears glasses Arthritis Injury of back Non-smoker History of pain when walking Leg cramps Primary osteoarthritis of both knees Ganglion of flexor tendon sheath of left index finger Nausea COVID-19 Anxiety Home Medications ?Medication ?Instructions ?Recorded ?Last Taken ?Type citalopram 20 mg tablet (Celexa) 20 mg PO QHS 03/08/21 02/09/25 History doxepin 10 mg capsule 10 mg PO PRN PRN Sleep 03/08/21 02/09/25 History ipratropium bromide 42 mcg (0.06 1 spray intranasal DAILY 03/08/21 02/09/25 History %) nasal spray lidocaine 5 % topical patch 1 patch transdermal DAILY PRN pain 03/08/21 02/09/25 History acetaminophen 650 mg 650 mg PO Q12H 08/07/21 02/09/25 History tablet,extended release vitamin B complex 1 cap PO DAILY 08/07/21 02/09/25 History meloxicam 15 mg tablet 15 mg PO DAILY 01/09/23 02/09/25 History phentermine 37.5 mg capsule 37.5 mg PO DAILY 07/26/23 02/09/25 History semaglutide 0.25 mg or 0.5 mg (2 0.25 mg subcut QWEEK 08/02/24 01/28/25 History mg/1.5 mL) subcutaneous pen injector (OzempBraveNewTalent) baclofen 10 mg tablet 10 mg PO QHS PRN pain 11/09/24 02/09/25 History Allergy/AdvReac Type Severity Reaction Status Date / Time Seasonal Allergies: Uncoded Allergy Other Verified 02/10/25 09:44 Family History Mother Arthritis Surgical History (Updated 01/27/25 @ 09:22 by Antoinette Mendoza) Hx of hand surgery Hx of varicose vein ligation and stripping History of wisdom tooth extraction History of appendectomy History of cholecystectomy History of carpal tunnel release History of tonsillectomy Social History household members: significant other Smoking Status: Never smoker alcohol intake: current what type of physical activity do you participate in: walking Vital Signs Vital Signs Vital Signs: 02/10/25 09:44 02/10/25 09:44 02/10/25 10:07 Temperature 98.0 F 98.0 F Temperature Source Temporal Pulse Rate 81 81 Respiratory Rate 16 16 Respiratory Pattern Normal Blood Pressure 124/49 H 124/49 H Blood Pressure Mean 74 Blood Pressure Source Monitor Blood Pressure Position Semi-Fowlers Blood Pressure Location Right Arm Pulse Ox 99 99 Oxygen Delivery Method Room Air Room Air Weight Weight: 238 lb 1.588 oz Body Mass Index (BMI) 42.1
[2025-02-10] MEDS: Cefazolin 2 GM in 0.9% Normal Saline (100mL Bag) 100 ML IV (12:00)
[2025-02-10] MEDS: Epinephrine (1 mg/ml) 1 MG/ML VIAL (12:25)
--- NOTE | 2025-02-10 13:30 | PCM.OPRPT ---
Problems Associated Problem List Diagnoses (1) Left rotator cuff tear: (2) Left shoulder pain: (3) SLAP lesion of left shoulder: Procedures Musculoskeletal [id number]: Other Procedure See Report Operative Report (Standard) Operative Information Date of Procedure: 02/10/25 Pre-Operative Diagnosis: Left shoulder rotator cuff tear impingement syndrome Post-Operative Diagnosis: Left shoulder rotator cuff tear impingement syndrome and SLAP tear Surgery/Procedure Performed: Left shoulder arthroscopy subacromial decompression rotator cuff repair biceps tenodesis flag signalman: Wilmar Winch Stripper: jad Tasks completed by first assistant: Retracting Type of Anesthesia: Block,Regional and General RN Documented Start/Stop Times: Operation Date: 02/10/25 11:15 Case Time Into Pre-Op 02/10/25 09:27 Out of Pre-Op 02/10/25 11:50 Anesthesia Start 02/10/25 11:52 Into Room 02/10/25 11:52 Procedure Start 02/10/25 12:26 Procedure Start Time: 12:26 Procedure Stop Time: 13:39 Select all DRAINS/GRAFTS/IMPLANTS that apply: Implanted device Implanted device details: arthrex anchor and biceps tension tight button Estimated Blood Loss: 20 Specimen collected: No Description of surgery: Patient brought to the operating room theater. Placed supine on the table. Ministered general anesthetic. 2 g IV Ancef administered prior to the start of the procedure. All bony prominences padded. SCDs on the legs. Transferred left side up lateral decubitus beanbag positioner axillary roll used. Upper extremity prepped and draped in the usual sterile fashion with chlorhexidine-based prep solution allowing over 3 minutes drying time prior to draping. 10 pounds of inline traction with the arm in 40 degrees of abduction was utilized. Preoperative timeout performed to confirm the site patient and the surgery. I began by inserting the arthroscope into the intra-articular portion of the shoulder through a standard posterior arthroscopy portal. Did a full diagnostic arthroscopy. Cartilage on the glenoid and humeral head just grade 1 changes. Minor fraying of the anterior labrum gently debrided. There is also fraying and degeneration of the inferior and posterior labrum I debrided those as well. I debrided the rotator interval. I identified the subscapularis upper border and subscapularis had normal attachment site. The long head of the biceps was unstable and subluxed partially as well as being having longitudinal tearing and partial detachment type II SLAP from the upper aspect of the glenoid. I performed intra-articular biceps tenotomy for later tenodesis. I established also an anterior portal through the rotator interval prior to doing this. There is near full-thickness high-grade anterior leading edge tear of the supraspinatus tendon I marked this from inside using a spinal needle. I withdrew the arthroscope. Inserted the arthroscope into the subacromial space. Did a full bursectomy there is a moderate to high amount of inflammatory bursitis. I performed a subacromial decompression for 4 mm full jewell width. Identified the tear site. There is very few remaining fibers. I gently debrided the edges of the tear removed any remaining soft tissue at the attachment site. I used a Arthrex power pick as well as a bur to decorticate and stimulate bleeding bed for healing. I then used a cannula laterally. I used 2 portals total. I performed a rotator cuff repair using an inverted horizontal mattress suture using Arthrex fiber tape and then inserted these into 4.75 mm Arthrex bio composite swivel lock anchor. [place] got good purchase good I then used the remaining stay suture in a knotless configuration to repair 1 very small remaining edge of the tear. Tear probed and found to be stable. Arthroscope withdrawn turned my attention to the biceps tenodesis. Did not open technique used about a 2 inch long longitudinal incision centered over the long head of the biceps carried the dissection down through skin and subcutaneous tissue achieved meticulous hemostasis identified the long head of the biceps tendon delivered this through the incision. Shorten the biceps. The use the Arthrex whipstitch locking loop configuration for the suture. I then passed the suture from superficial to deep just distal. I drilled a unicortical hole at the mid aspect of the biceps groove and an appropriate length. I then passed the suture tail through the Arthrex biceps tension tight button passed the button flipped the button and then delivered the tendon to the repair site which was stable and solid were repair suture cut short. Wounds thoroughly irrigated subtenons tissue closed with 2-0 Vicryl suture skin with 3-0 Monocryl. Skin cleaned with wet dry dressing followed the patient's Steri-Strips Adaptic 4 x 4 gauze ABD dressing cloth tape and an abduction pillow sling for the upper extremity. Patient woken up from a general anesthetic transferred off the operating table taken postanesthetic care unit in stable condition. All sponge needle instrument counts were correct no complications plan for the patient discharge home according to a surgery criteria gentle pendulums okay for elbow flexion exercises but no lifting over 1 pound only activities of daily living and follow-up in the office within 2 weeks time. [id number], [id number], [id number] Surgical Findings: As above Complications Complications: No Admit VTE Documentation VTE Present on Admission: No VTE Mechan Device Prophylaxis: SCD's VTE Pharm Prophylaxis ordered?: No Reason prophylaxis not ordered: Treatment Not Indicated
--- NOTE | 2025-02-10 13:38 | EX.PCM.DISCH ---
Discharge Instructions Diet Discharge Diet: No restrictions Activity Lifting Restrictions: no lifting ok to remove sling at rest, ok pendulums Additional Activity Instructions:: ok to bend elbow, no lifting over 1 pound Dressing / Incision Call your doctor if your incision/area has: Continuous Slow Oozing, Sudden Increased Bleeding, Increased Pain/ Swelling, Increased Redness, Foul Smelling Discharge and Swelling at the incision site Call your doctor if you observe: Fever of 101 or Higher, Coldness, Increased Pain and Numbness or Tingling Change Dressing in: 2 days Cleanse incision/area with: Do not get Incision Wet Follow Up Care Please Follow Up With: Sarmad Cruz MD When: within 2 weeks Test Results: Test results from this visit will be discussed in further detail at your follow-up appointment, if applicable. Discharge Plan Admission Attending Provider: Sarmad Cruz Primary Care Provider: Beny Covarrubias Chi Instructions Patient Instructions: After Shoulder Arthroscopy Print Language: Maldivian Discharge Orders/Prescriptions Prescriptions: New oxycodone-acetaminophen [Endocet] 5-325 mg tablet 1 tab PO Q4H MDD 6 PRN (Reason: pain) 5 Days Qty: 30 0RF No Action phentermine 37.5 mg capsule 37.5 mg PO DAILY Patient Comments: TAKE 1 CAPSULE BY MOUTH DAILY baclofen 10 mg tablet 10 mg PO QHS PRN (Reason: pain) doxepin 10 mg capsule 10 mg PO PRN PRN (Reason: Sleep) Patient Comments: TAKE 1 CAPSULE ONCE DAILY AT BEDTIME citalopram [Celexa] 20 mg tablet 20 mg PO QHS Patient Comments: TAKE 1 TABLET ONCE DAILY FOR 30 DAYS lidocaine 5 % adhesive patch,medicated 1 patch transdermal DAILY PRN (Reason: pain) Patient Comments: Use 1 (ONE) Patch topically once per day for 30 days. Apply to right knee, on 12HR, off 12HR ipratropium bromide 42 mcg (0.06 %) spray,non-aerosol 1 spray INTRANASAL DAILY Patient Comments: Instill 1 spray into each nostril twice daily for 30 days. acetaminophen [Tylenol Arthritis] 650 mg Tablet Extended Release 650 mg PO Q12H vitamin B complex [B Complex] Capsule 1 cap PO DAILY meloxicam 15 mg tablet 15 mg PO DAILY Patient Comments: TAKE 1 TABLET BY MOUTH DAILY Ozempic 0.25 mg or 0.5 mg(2 mg/1.5 mL) pen injector 0.25 mg subcut QWEEK Rx Instructions: for 4 weeks Referrals / Follow Up: Beny Covarrubias Chi, MD [Primary Care Provider] - Sarmad Cruz MD [Med Staff - Active Staff] - Disposition Disposition (needs filled in before D/C Order can be placed): Home, Self Care
--- NOTE | 2025-02-10 14:03 | PCM.POST.ANE ---
Anesthesia: Postop Eval I Current Vital Signs Temperature: 97 F Pulse Rate: 84 Blood Pressure: 108/60 Respiratory Rate: 16 Pulse Ox: 92 Oxygen Delivery Method: Room Air Assessment Airway patent: Yes Spontaneous unlabored respirations: Yes Mental status: Awake and Calm nausea: No Vomiting: No Anesthesia Complication: No Fluid Hydration Crystalloid volume administer (ml): 1,600 Total IV fluid infused: 1,600 Progress Note Anesthesia document: Postop Eval 1 completed: Yes
--- OUTSIDE RECORDS SUMMARY | 2025-02-10 14:12 | XMS RPT_ITS | CCD ---
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 warm and dry. Findings: Erythema and rash present. Comments: Erythematous rash noted on chest erythema is blanchable. Patient has petechiae noted on the upper chest as well. No rash anywhere else. No lymphatic streaking. No vesicular lesions, drainage or abscess Neurological: Mental Status: She is alert. General: No acute distress. Skin: Erythematous rash with petechiae on chest, no other trauma noted. {1. Petechial rash (R23.3) - Acute onset of petechial rash with pruritus, localized to areas with recent sun exposure; no other associated symptoms such as fever or body aches. - Differential diagnosis includes thrombocytopenia or other hematological disorders. - Advised immediate evaluation in the emergency room for stat blood work to assess platelet counts and clotting factors. - Educated patient on the potential seriousness of petechiae and the need for prompt investigation. Recording using [employer] software for draft documentation of the visit was discussed with the patient/authorized in home sales representative; all questions welcomed and answered. Patient/authorized in home sales representative agreed to proceed Disposition The patient was other (comment). Procedures Allergies As of Date: 01/18/2025 Noted Allergy Reaction napro [Other] 07/18/2005 10 - Anaphylaxis Comments: causes asthma attacks GRASS POLLEN 12/25/2005 POLLEN 12/25/2005 Seasonal [Other] 12/25/2005 Tree's [Other] 12/25/2005 CATS 07/18/2005 3 - Cough Comments: sneezing DOGS 07/18/2005 3 - Cough Comments: sneezing environmental [Other] 07/18/2005 3 - Cough Comments: sneezing and runny nose Date Reviewed: 01/18/2025 Reviewed by: Maria Esther Rock LPN - Fully Assessed Reason for Visit: Rash [1087] Cmt: Rash on chest x 1 day Primary Visit Diagnosis:Petechial rash [R23.3] Prescriptions as of 01/18/2025 - baclofen 10 mg tablet Take 10 mg by mouth daily at bedtime. - citalopram (CELEXA) 20 mg tablet Take 1 tablet by mouth once daily. - pantoprazole DR (PROTONIX) 40 mg tablet Take 1 tablet by mouth once daily. - Phentermine HCl 37.5 mg tablet Take 1 tablet by mouth once daily. - meloxicam (MOBIC) 15 mg tablet Take 15 mg by mouth once daily. - semaglutide 1 mg/0.5 mL (2 mg/mL) subcutaneous compounded injection Inject subcutaneously one time a week. - esomeprazole (NEXIUM) 40 mg capsule Take 40 mg by mouth. - zolpidem 5 mg tablet Take 5 mg by mouth at bedtime as needed. - oxyCODONE-acetaminophen (PERCOCET) 5-325 mg tablet Take 1 tablet by mouth every 4 hours as needed. - medroxyPROGESTERone (DEPO-PROVERA) 150 mg/mL injection Inject 1 mL intramuscularly every 3 months. - amphetamine-dextroamphe tamine (ADDERALL) 10 mg ORAL tablet Take 10 mg by m (more content not included)... Normal [facility] CNOVon 12-31-2024 CNOV Office Visit (WSTR ) MYRIAMROBERTA M ([id number]) 1970 F Date Time Provider Department 12/31/24 7:45 PM NIKO CELESTIN [facility] During your visit today, we recorded the following information about you: Temperature Pulse Respiration Blood pressure 98.8 degrees 87/minute 18/minute 138/84 Weight 109.2 kg Niko Celestin APRN.CNP 12/31/2024 8:11 PM Signed This note was created using NoteWriter. Subjective Roberta Callaway is a 54 year old female. HPI Just prior to arrival patient was washing dishes when she put her right hand into a glass jar with an uneven lip lacerating the webbing of the skin between the 4th and 5th digits. She denies any other injuries or health concerns. Tetanus shot is approximately 6 years old. Review of Systems As above Objective BP 138/84 Pulse 87 Temp 37.1 ?C (98.8 ?F) Resp 18 Wt 109.2 kg (240 lb 11.9 oz) LMP 10/15/2010 SpO2 98% Physical Exam Vitals and nursing note reviewed. Constitutional: General: She is not in acute distress. Appearance: Normal appearance. She is not ill-appearing. HENT: Head: Normocephalic. Pulmonary: Effort: Pulmonary effort is normal. Musculoskeletal: General: Normal range of motion. Comments: Patient has full strength with all movements of digits of right hand. Skin: General: Skin is warm. Neurological: General: No focal deficit present. Mental Status: She is alert and oriented to person, place, and time. Psychiatric: Mood and Affect: Mood normal. Behavior: Behavior normal. Laceration Procedure: right small finger Date/Time: 12/31/2024 8:08 PM Performed by: Niko Celestin APRN.[employer] Authorized by: Niko Celestin APRN.[employer] Informed Consent Consent Obtained: Verbal [place] Protocol SIGN IN Special Equipment: N/A Patient/Surrogate Stated/Verified: Patient name and Date of TIME OUT Laceration Repair Body area: upper extremity Location details: right small finger Laceration length: 0.5 cm Foreign bodies: no foreign bodies Tendon involvement: none Nerve involvement: none Vascular damage: no Preparation: Patient was prepped and draped in the usual sterile fashion. Irrigation solution: Soap and water. Amount of cleaning: standard Debridement: none Degree of undermining: none Skin closure: 4-0 Prolene Number of sutures: 3 Approximation: close Approximation difficulty: simple Patient tolerance: patient tolerated the procedure well with no immediate complications Comments: Patient had full sensation of all digits and full range of motion of all digits of right hand. Postprocedure I ever taped the 4th and 5th digits. SIGN OUT No specimen collected. Medications: 20 mg lidocaine 20 mg/mL (2 %) Assessment and Plan ASSESSMENT/PLAN: 1. Laceration of right hand without foreign body, initial encounter - ICD9: 882.0, ICD10: S61.411A Small laceration was sutured as noted in procedure note above. No obvious foreign body noted and no sign of tendon or ligament injury. Patient was instructed to have sutures removed in approximately 14 days. She is to keep the wound clean and dry other than wash gently with soap and water and to the wound has healed. She is to follow-up with PCP in 3-4 days for evaluation of the wound. Niko Celestin APRN.CNP Allergies As of Date: 12/31/2024 Noted Allergy Reaction napro [Other] 07/18/2005 10 - Anaphylaxis Comments: causes asthma attacks GRASS POLLEN 12/25/2005 POLLEN 12/25/2005 Seasonal [Other] 12/25/2005 Tree's [Other] 12/25/2005 CATS 07/18/2005 3 - Cough Comments: sneezing DOGS 07/18/2005 3 - Cough Comments: sneezing environmental [Other] 07/18/2005 3 - Cough Comments: sneezing and runny nose Date Reviewed: 12/31/2024 Reviewed by: Niko Celestin APRN.[employer] - Fully Assessed Reason for Visit: Laceration [1747] Cmt: R hand inbetween 4th and 5th finger x15 mins Primary Visit Diagnosis:Laceration of right hand without foreign body, initial encounter [S61.411A] Order(s):Laceration Procedure: right small finger [TJQ847] Order #: [id number] [] lidocaine 20 mg/mL (2 %) 20 mg injection (XYLOCAINE)Disp: Rfl: Prescriptions as of 12/31/2024 - baclofen 10 mg tablet Take 10 mg by mouth daily at bedtime. - citalopram (CELEXA) 20 mg tablet Take 1 tablet by mouth once daily. - pantoprazole DR (PROTONIX) 40 mg tablet Take 1 tablet by mouth once daily. - Phentermine HCl 37.5 mg tablet Take 1 tablet by mouth once daily. - meloxicam (MOBIC) 15 mg tablet Take 15 mg by mouth once daily. - semaglutide 1 mg/0.5 mL (2 mg/mL) subcutaneous compounded injection Inject subcutaneously one time a week. - esomeprazole (NEXIUM) 40 mg capsule Take 40 mg by mouth. - zolpidem 5 mg tablet Take 5 mg by mouth at bedtime as needed. - oxyCODONE-acetaminophen (PERCOCET) 5-325 mg tablet Take 1 tablet by mouth every 4 hours as needed. - medroxyPROGESTERone (more content not included)... Normal [facility] Laceration Procedure: right small fingeron 12-31-2024 [facility] CBC W/Diff, Automatedon - Absolute Lymph 2.48 X10 3/uL Normal 0.83-4.51 [facility] Comment on above: Performed By: #### L 501.9520, L500.4100, L100.0100, L500.4050 ####[facility] [address] [place], [address] Absolute Neut 4.0 X10 3/uL Normal 2.0-7.7 [facility] Comment on above: Performed By: #### L 501.9520, L500.4100, L100.0100, L500.4050 ####[facility] [address] [place], [address] Basophils/100 WBC (Bld) 0.6 % Normal 0-1 [facility] Comment on above: Performed By: #### L 501.9520, L500.4100, L100.0100, L500.4050 ####[facility] [address] [place], [address] Eosinophils/100 WBC (Bld) 2.4 % Normal 0-5 [facility] Comment on above: Performed By: #### L 501.9520, L500.4100, L100.0100, L500.4050 ####[facility] [address] [place], [address] Erythrocyte distribution width (RBC) [Ratio] 12.0 % Normal 11.6-14.6 [facility] Comment on above: Performed By: #### L 501.9520, L500.4100, L100.0100, L500.4050 ####[facility] [address] [place], [address] Hematocrit (Bld) [Volume fraction] 41.6 % Normal 37-47 [facility] Comment on above: Performed By: #### L 501.9520, L500.4100, L100.0100, L500.4050 ####[facility] [address] [place], [address] Hemoglobin (Bld) [Mass/Vol] 14.1 g/dL Normal 12.0-15.0 [facility] Comment on above: Performed By: #### L 501.9520, L500.4100, L100.0100, L500.4050 ####[facility] [address] [place], [address] IG% 0.600 Normal 0.0-0.9 [facility] Comment on above: Result Comment: IG% - Immature Granulocytes (promyelocytes, myelocytes and metamyelocytes) > 1% indicates that a LEFT SHIFT is Present. Performed By: #### L 501.9520, L500.4100, L100.0100, L500.4050 ####[facility] [address] [place], [address] Lymphocytes/100 WBC (Bld) 35.2 % Normal 19-41 [facility] Comment on above: Performed By: #### L 501.9520, L500.4100, L100.0100, L500.4050 ####[facility] [address] [place], [address] MCH (RBC) [Entitic mass] 32.6 pg High 27.0-32.0 [facility] Comment on above: Performed By: #### L 501.9520, L500.4100, L100.0100, L500.4050 ####[facility] [address] [place], [address] MCHC (RBC) [Mass/Vol] 33.9 g/dL Normal 32-36 [facility] Comment on above: Performed By: #### L 501.9520, L500.4100, L100.0100, L500.4050 ####[facility] [address] [place], [address] MCV (RBC) [Entitic vol] 96.1 fL Normal 81-99 [facility] Comment on above: Performed By: #### L 501.9520, L500.4100, L100.0100, L500.4050 ####[facility] [address] [place], [address] Monocytes/100 WBC (Bld) 5.2 % Normal 0-10 [facility] Comment on above: Performed By: #### L 501.9520, L500.4100, L100.0100, L500.4050 ####[facility] [address] [place], [address] Neutrophils/100 WBC (Bld) 56.0 % Normal 47-70 [facility] Comment on above: Performed By: #### L 501.9520, L500.4100, L100.0100, L500.4050 ####[facility] [address] [place], [address] Nucleated RBC (Bld) [#/Vol] 0 10*3/uL Normal 0-5 [facility] Comment on above: Performed By: #### L 501.9520, L500.4100, L100.0100, L500.4050 ####[facility] [address] [place], [address] Platelet mean volume (Bld) [Entitic vol] 9.6 fL Normal 6.2-12.0 [facility] Comment on above: Performed By: #### L 501.9520, L500.4100, L100.0100, L500.4050 ####[facility] [address] [place], [address] Platelets (Bld) [#/Vol] 204 10*3/uL Normal 150-450 [facility] Comment on above: Performed By: #### L 501.9520, L500.4100, L100.0100, L500.4050 ####[facility] [address] [place], [address] RBC (Bld) [#/Vol] 4.33 10*6/uL Normal 4.2-5.4 [facility] Comment on above: Performed By: #### L 501.9520, L500.4100, L100.0100, L500.4050 ####[facility] [address] [place], [address] RDW SD 42.8 fl Normal 35.1-43.9 [facility] Comment on above: Performed By: #### L 501.9520, L500.4100, L100.0100, L500.4050 ####[facility] [address] [place], [address] WBC (Bld) [#/Vol] 7.1 10*3/uL Normal 4.4-11.0 [facility] Comment on above: Performed By: #### L 501.9520, L500.4100, L100.0100, L500.4050 ####[facility] [address] [place], [address] [facility] 12-14-2024 Albumin [Mass/Vol] 4.1 g/dL Normal 3.5-5.0 [facility] Comment on above: Performed By: #### L 501.9520, L500.4100, L100.0100, L500.4050 ####[facility] [address] [place], [address] Albumin/Globulin [Mass ratio] 1.6 {ratio} Normal 0.9-2.4 [facility] Comment on above: Performed By: #### L 501.9520, L500.4100, L100.0100, L500.4050 ####[facility] [address] [place], [address] ALK PHOS 103 U/L Normal 35-104 [facility] Comment on above: Performed By: #### L 501.9520, L500.4100, L100.0100, L500.4050 ####[facility] [address] [place], [address] ALT [Catalytic activity/Vol] 26 U/L Normal <=34 [facility] Comment on above: Performed By: #### L 501.9520, L500.4100, L100.0100, L500.4050 ####[facility] [address] [place], [address] AST [Catalytic activity/Vol] 19 U/L Normal <=31 [facility] Comment on above: Performed By: #### L 501.9520, L500.4100, L100.0100, L500.4050 ####[facility] [address] [place], [address] Bilirubin [Mass/Vol] 0.40 mg/dL Normal 0.00-1.30 [facility] Comment on above: Performed By: #### L 501.9520, L500.4100, L100.0100, L500.4050 ####[facility] [address] [place], [address] BUN/CRE 23.9 RATIO High 10-20 [facility] Comment on above: Performed By: #### L 501.9520, L500.4100, L100.0100, L500.4050 ####[facility] [address] [place], [address] Calcium [Mass/Vol] 9.3 mg/dL Normal 7.6-11.0 [facility] Comment on above: Performed By: #### L 501.9520, L500.4100, L100.0100, L500.4050 ####[facility] [address] [place], [address] Chloride [Moles/Vol] 107 mmol/L Normal 98-108 [facility] Comment on above: Performed By: #### L 501.9520, L500.4100, L100.0100, L500.4050 ####[facility] [address] [place], [address] CO2 [Moles/Vol] 24.2 mmol/L Normal 21.0-32.0 [facility] Comment on above: Performed By: #### L 501.9520, L500.4100, L100.0100, L500.4050 ####[facility] [address] [place], [address] Creatinine [Mass/Vol] 0.68 mg/dL Low 0.70-1.20 [facility] Comment on above: Performed By: #### L 501.9520, L500.4100, L100.0100, L500.4050 ####[facility] [address] [place], [address] GAP 10 Normal 5-15 [facility] Comment on above: Performed By: #### L 501.9520, L500.4100, L100.0100, L500.4050 ####[facility] [address] [place], [address] GFR/1.73 sq M.predicted among non-blacks MDRD (S/P/Bld) [Vol rate/Area] 102 mL/min/{1.73_m2} Normal >60 [facility] Comment on above: Result Comment: mL/m in/1.73m2 CKD-EPI Creatinine Equation (2020) Performed By: #### L 501.9520, L500.4100, L100.0100, L500.4050 ####[facility] [address] [place], [address] Globulin (S) [Mass/Vol] 2.6 g/dL Normal 2.2-4.2 [facility] Comment on above: Performed By: #### L 501.9520, L500.4100, L100.0100, L500.4050 ####[facility] [address] [place], [address] Glucose [Mass/Vol] 91 mg/dL Normal 70-99 [facility] Comment on above: Performed By: #### L 501.9520, L500.4100, L100.0100, L500.4050 ####[facility] [address] [place], [address] Potassium [Moles/Vol] 4.3 mmol/L Normal 3.3-5.1 [facility] Comment on above: Performed By: #### L 501.9520, L500.4100, L100.0100, L500.4050 ####[facility] [address] [place], [address] Sodium [Moles/Vol] 141 mmol/L Normal 133-145 [facility] Comment on above: Performed By: #### L 501.9520, L500.4100, L100.0100, L500.4050 ####[facility] [address] [place], [address] T PROT 6.7 g/dL Normal 5.9-8.4 [facility] Comment on above: Performed By: #### L 501.9520, L500.4100, L100.0100, L500.4050 ####[facility] [address] [place], [address] Urea nitrogen [Mass/Vol] 16 mg/dL Normal 4-19 [facility] Comment on above: Performed By: #### L 501.9520, L500.4100, L100.0100, L500.4050 ####[facility] [address] [place], [address] Lipid Profileon 12-14-2024 CHOL:HDL 4.30 Normal [facility] Comment on above: Performed By: #### L 501.9520, L500.4100, L100.0100, L500.4050 ####[facility] [address] [place], [address] Cholesterol [Mass/Vol] 190 mg/dL Normal <=200 [facility] Comment on above: Result Comment: Chol esterol level, Desirable <200 mg/dL Borderline high cholesterol 200-239 mg/dL High cholesterol >=240 mg/dL Recommendations of the NCEP Adult Treatment Panel for the following risk-cutoff thresholds for the [place] population. Performed By: #### L 501.9520, L500.4100, L100.0100, L500.4050 ####[facility] [address] [place], [address] Cholesterol in HDL [Mass/Vol] 44 mg/dL Normal [facility] Comment on above: Result Comment: Linda onal Cholesterol Education Program (NCEP) guidelines: <40 mg/dL: Low HDL-cholesterol (major risk factor for CHD) >= 60 mg/dL: High HDL-cholesterol (negative risk factor for CHD) HDL-cholesterol is affected by a number of factors, e.g. smoking, exercise, hormones, sex and age. Performed By: #### L 501.9520, L500.4100, L100.0100, L500.4050 ####[facility] [address] [place], [address] Cholesterol in LDL [Mass/Vol] 125 mg/dL Normal [facility] Comment on above: Result Comment: Bord aywgfw=563-997 mg/dL Higher Ylsr=373 mg/dL or greater Performed By: #### L 501.9520, L500.4100, L100.0100, L500.4050 ####[facility] [address] [place], [address] Cholesterol in VLDL [Mass/Vol] 21 mg/dL Normal 5-40 [facility] Comment on above: Performed By: #### L 501.9520, L500.4100, L100.0100, L500.4050 ####[facility] [address] [place], [address] Triglyceride [Mass/Vol] 106 mg/dL Normal [facility] Comment on above: Result Comment: The drugs N-Acetylcysteine and Metamizole may falsely depress this assay. Normal range: <150 mg/dL Borderline High: 150-199 mg/dL High: 200-499 mg/dL Very High: >500 mg/dL Performed By: #### L 501.9520, L500.4100, L100.0100, L500.4050 ####[facility] [address] [place], [address] Thyroid Stim Hormone (TSH)on 12-14-2024 TSH 0.818 uIU/mL Normal 0.300-4.200 [facility] Comment on above: Performed By: #### L 501.9520, L500.4100, L100.0100, L500.4050 ####[facility] [address] [place], [address] Orthopedic Visit Reporton Orthopedic Visit Report [facility] [address] [place] [address] [address] [place] [address] OFFICE VISIT Date of Service: 11/23/24 MR#: [id number] Acct: [id number] Name: ROBERTA CALLAWAY Rep #: [id number] : 1970 Provider: Dr. Sarmad sheriff MD Age/Sex: 54/F Location: [facility] Status: Signed Intake Vital Signs 11/09/24 09:01 11/23/24 09:32 Height 5 ft 3 in 5 ft 3 in Weight: 242 lb 8 oz 240 lb BMI 42.9 42.5 Intake Visit Reasons: left shoulder Chief Complaint: Left shoulder pain Accompanied by: Self Is patient in pain?: Yes Pain scale (1-10): 3 Allergies Seasonal Allergies: Uncoded Allergy (Verified 11/23/24 09:33) Other Medications ???Medication ???Instructions ???Recorded ???Confirmed ???Type citalopram 20 mg tablet (Celexa) 20 mg PO DAILY 03/08/21 11/23/24 H istory doxepin 10 mg capsule 10 mg PO PRN PRN Sleep 03/08/21 History ipratropium bromide 42 mcg (0.06 1 spray intranasal DAILY 03/08/21 11/23/24 History %) nasal spray lidocaine 5 % topical patch 1 patch transdermal DAILY 03/08/21 11/23/24 History acetaminophen 650 mg 650 mg PO Q12H 08/07/21 11/23/24 H istory tablet,extended release vitamin B complex 1 cap PO DAILY 08/07/21 11/23/24 H istory meloxicam 15 mg tablet 15 mg PO DAILY 01/09/23 11/23/24 H istory phentermine 37.5 mg capsule 37.5 mg PO DAILY 07/26/23 11/23/24 History semaglutide 0.25 mg or 0.5 mg (2 0.25 mg subcut QWEEK 08/02/2403/12 History mg/1.5 mL) subcutaneous pen injector (Ozempic) baclofen 10 mg tablet 10 mg PO QHS 11/09/24 11/23/24 His tory Have you fallen in the past year?: Yes PFSH Medical History Left rotator cuff tear Left shoulder pain Fracture of radial neck, left, closed Wears glasses History of steroid therapy Arthritis Kidney stones Injury of back Gastric reflux Non-smoker History of pain when walking Leg cramps Primary osteoarthritis of both knees Ganglion of flexor tendon sheath of left index finger Nausea Plantar fasciitis Heel spur COVID-19 Depression Anxiety Surgical History Hx of varicose vein ligation and stripping History of wisdom tooth extraction History of appendectomy History of cholecystectomy History of carpal tunnel release History of tonsillectomy Family History Mother Arthritis Social History household members: significant other Smoking Status: Never smoker alcohol intake: current what type of physical activity do you participate in: walking HPI left shoulder Details: This documentation accurately reflects the service provided and the decisions made by me, Dr. Sarmad Cruz MD 11/23/24 0831. Part of today???s visit was documented by [ ], acting as scribe. 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 Wants to proceed with surgery. Coding Level of Care Code No Charge Diagnoses Left shoulder pain M25.512 Left rotator cuff tear M75.102 Assessment and Plan Assessment and Plan (1) Left shoulder pain: Status: Acute Plan: 54-year-old female left shoulder rotator cuff tear and possible SLAP tear degenerative tearing of the long head biceps attachment. Went over the options with this surgery in the form of left shoulder arthroscopy, subacromial decompression, rotator cuff repair, possible biceps tenodesis. Pros and cons risks and benefits were discussed with the patient including but not limited to infection, pain, stiffness, bleeding, damage to surrounding structures, neurovascular injury, rec urrence or retear, failure or wear of hardware or fixation, instability, fracture, deep vein thrombosis and pulmonary embolism, anesthetic risks, , patient dissatisfaction, need for further surgery and other risks. Patient understood and wished to proceed with surgery, and signed the informed consent documentation. Patient counselled on non-operative and operative means of treating shoulder pain. Conservative options include but not limited to: 1. Rest and Activity Modification: Giving your shoulder time to heal by avoiding movements that cause pain can help. This may involve limiting overhead activities or heavy lifting. 2. Physical Therapy: A physical therapist can guide you through exercises that strengthen the muscles around the shoulder, improve flexibility, and reduce strain on the rotator cuff tendon. 3. Ice and Heat Therapy: Applying ice to the shoulder can help reduce swelling (more content not included)... [facility] Orthopedic Visit Reporton Orthopedic Visit Report [facility] [facility] [address] [place] [address] OFFICE VISIT Date of Service: 11/09/24 MR#: [id number] Acct: [id number] Name: ROBERTA CALLAWAY Rep #: [id number] : 1970 Provider: Dr. Sarmad sheriff MD Age/Sex: 54/F Location: [facility] Status: Signed Intake Vital Signs 08/02/24 19:18 11/09/24 09:01 Height 5 ft 3 in 5 ft 3 in Weight: 242 lb 8 oz BMI 42.9 Intake Visit Reasons: LEFT SHOULDER Allergies Seasonal Allergies: Uncoded Allergy (Verified 11/09/24 09:02) Other Medications ???Medication ???Instructions ???Recorded ???Confirmed ???Type citalopram 20 mg tablet (Celexa) 20 mg PO DAILY 03/08/21 11/09/24 H istory doxepin 10 mg capsule 10 mg PO PRN PRN Sleep 03/08/21 History ipratropium bromide 42 mcg (0.06 1 spray intranasal DAILY 03/08/21 11/09/24 History %) nasal spray lidocaine 5 % topical patch 1 patch transdermal DAILY 03/08/21 11/09/24 History acetaminophen 650 mg 650 mg PO Q12H 08/07/21 11/09/24 H istory tablet,extended release vitamin B complex 1 cap PO DAILY 08/07/21 11/09/24 H istory meloxicam 15 mg tablet 15 mg PO DAILY 01/09/23 11/09/24 H istory phentermine 37.5 mg capsule 37.5 mg PO DAILY 07/26/23 11/09/24 History semaglutide 0.25 mg or 0.5 mg (2 0.25 mg subcut QWEEK 08/02/2410/18 History mg/1.5 mL) subcutaneous pen injector (Ozempic) baclofen 10 mg tablet 10 mg PO QHS 11/09/24 11/09/24 His tory [facility] Medical History (Updated 11/09/24 @ 09:00 by Sarmad Cruz MD) Left shoulder pain Fracture of radial neck, left, closed Wears glasses History of steroid therapy Arthritis Kidney stones Injury of back Gastric reflux Non-smoker History of pain when walking Leg cramps Primary osteoarthritis of both knees Ganglion of flexor tendon sheath of left index finger Nausea Plantar fasciitis Heel spur COVID-19 Depression Anxiety Surgical History Hx of varicose vein ligation and stripping History of wisdom tooth extraction History of appendectomy History of cholecystectomy History of carpal tunnel release History of tonsillectomy Family History Mother Arthritis Social History household members: significant other Smoking Status: Never smoker alcohol intake: current what type of physical activity do you participate in: walking HPI LEFT SHOULDER Details: This documentation accurately reflects the service provided and the decisions made by me, Dr. Sarmad Cruz MD 11/09/24 0858. Part of today???s visit was documented by [ ], acting as scribe. ROBERTA CALLAWAY is a 54 year old F here today for left shoulder pain. RHD. 2 months hx. had a fall. weak and painful. had a cortisone injection 4 weeks ago. some mild relief with baclofen.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 L501.9520, L500.4100 #### [facility] [address] [place], [address] Globulin (S) [Mass/Vol] 3.2 g/dL Normal 2.2-4.2 [facility] Comment on above: Performed By: #### L 500.4050, L100.0100, L501.9520, L500.4100 #### [facility] [address] [place], [address] Glucose [Mass/Vol] 86 mg/dL Normal 74-106 [facility] Comment on above: Performed By: #### L 500.4050, L100.0100, L501.9520, L500.4100 #### [facility] [address] [place], [address] Potassium [Moles/Vol] 3.9 mmol/L Normal 3.5-5.1 [facility] Comment on above: Performed By: #### L 500.4050, L100.0100, L501.9520, L500.4100 #### [facility] [address] [place], [address] Sodium [Moles/Vol] 140 mmol/L Normal 136-145 [facility] Comment on above: Performed By: #### L 500.4050, L100.0100, L501.9520, L500.4100 #### [facility] [address] [place], [address] T PROT 7.2 g/dL Normal 6.4-8.2 [facility] Comment on above: Performed By: #### L 500.4050, L100.0100, L501.9520, L500.4100 #### [facility] [address] [place], [address] Urea nitrogen [Mass/Vol] 17 mg/dL Normal 7-18 [facility] Comment on above: Performed By: #### L 500.4050, L100.0100, L501.9520, L500.4100 #### [facility] [address] [place], [address] Lipid Profileon 06-05-2024 Cholesterol [Mass/Vol] 202 mg/dL High 200 [facility] Comment on above: Result Comment: <200 mg/dL Desirable 200-240 mg/dL Borderline >240 mg/dL High Risk Performed By: #### L 500.4050, L100.0100, L501.9520, L500.4100 #### [facility] [address] [place], [address] Cholesterol in HDL [Mass/Vol] 52 mg/dL Normal [facility] Comment on above: Result Comment: The drugs N-Acetylcysteine and Metamizole may falsely depress this assay. Reference Range HDL <40 mg/dL Low HDL Cholesterol HDL >or= 60 mg/dL High HDL Cholesterol Performed By: #### L 500.4050, L100.0100, L501.9520, L500.4100 #### [facility] [address] [place], [address] Cholesterol in LDL [Mass/Vol] 124 mg/dL Normal 0-130 [facility] Comment on above: Performed By: #### L 500.4050, L100.0100, L501.9520, L500.4100 #### [facility] [address] [place], [address] Cholesterol in VLDL [Mass/Vol] 26 mg/dL Normal 5-40 [facility] Comment on above: Performed By: #### L 500.4050, L100.0100, L501.9520, L500.4100 #### [facility] [address] [place], [address] Triglyceride [Mass/Vol] 130 mg/dL Normal [facility] Comment on above: Result Comment: The drugs N-Acetylcysteine and Metamizole may falsely depress this assay. Serum Triglycerides Reference Interval Normal <150 mg/dL Borderline high 150 - 199 mg/dL High 200 - 499 mg/dL Very High > or = 500 mg/dL Performed By: #### L 500.4050, L100.0100, L501.9520, L500.4100 #### [facility] [address] [facility] [place], [address] Thyroid Stim Hormone (TSH)on 06-05-2024 TSH 1.510 uIU/mL Normal 0.358-3.740 [facility] Comment on above: Performed By: #### L 500.4050, L100.0100, L501.9520, L500.4100 ####[facility] [id number] [place], [address] Chest PA and Lateralon 04-08 Chest PA and Lateral [facility] [address] [place] [address] Chest PA and Lateral MR#: [id number] Acct: [id number] Name: ROBERTA CALLAWAY Rep #: [id number] : 1970 F 54 From: Renard mccormack DO PCP: Dr. Beny Kerr MD Status: [facility] Study: Chest PA and Lateral Date of Exam: 04/08/24 Exam# [id number] Ordering [place]: [place] [id number] EXAM: XR CHEST, 2 VIEWS CLINICAL INDICATION: WHEEZING TECHNIQUE: Frontal and lateral views of the chest. COMPARISON: 08/22/2022 FINDINGS: LUNGS AND PLEURAL SPACES: No significant abnormality. No consolidation or edema. No pneumothorax. No effusion. HEART: No significant abnormality. Cardiac silhouette not enlarged. MEDIASTINUM: Central airways and mediastinal contour are unremarkable. BONES/JOINTS: No significant abnormality. No acute fracture. SOFT TISSUES: No significant abnormality. RAD/Chest PA and Lateral IMPRESSION: No radiographic evidence of acute cardiopulmonary disease. Electronically Signed: Renard Penn DO at 22:07 EDT , CC: Dr. Beny Kerr MD Supervisor Sterile Processing: Signed Normal [facility] M100.678on 04-08-2024 M100.678 Copy of report sent to Infection Control Printer [id number] 04/09/24 [id number] Pending SARS-CoV-2 (COVID 19) A Positive A INFLUENZA A Negative INFLUENZA B Negative RSV PCR Negative SARS-CoV-2 (COVID 19) Normal [facility] Comment on above: Performed By: #### M 100.678 ####[facility] [id number] [place], [address] Absolute lymphocyte countOrd ered By: Beny Kerr on 12-13-2023 Lymphocytes Auto (Unsp spec) [#/Vol] 2.20 10*3/uL 0.83-4.51 [facility] Automated lymphocyte count a s percentage of total leukocytesOrdered By: Beny Kerr on 12-13-2023 Lymphocytes/100 WBC Auto (Unsp spec) 33.7 % 19-41 [facility] Basophil percentageOrdered B y: Beny Kerr on 12-13-2023 Basophils/100 WBC (Bld) 0.9 % 0-1 [facility] Bilirubin [Mass/Vol] 0.30 mg/dL 0.20-1.00 [facility] Comment on above: For patients on eltr ombopag therapy, use of Dimension [place] TBIL is not recommended. Chloride [Moles/Vol] 109 mmol/L 98-107 [facility] Cholesterol [Mass/Vol] 202 mg/dL <200 [facility] Comment on above: <200 mg/dL Desirable 200-240 mg/dL Borderline >240 mg/dL High Risk Eosinophils/100 WBC (Bld) 2.6 % 0-5 [facility] Glucose [Mass/Vol] 138 mg/dL 74-106 [facility] Comment on above: Fasting Glucose resu lt greater than or equal to 126 mg/dL suggests DIABETES MELLITUS per A.D.A. criteria. Hemoglobin (Bld) [Mass/Vol] 13.1 g/dL 12.0-15.0 [facility] Monocytes/100 WBC (Bld) 6.0 % 0-10 [facility] Neutrophils (Bld) [#/Vol] 3.7 10*3/uL 2.0-7.7 [facility] Neutrophils/100 WBC (Bld) 56.2 % 47-70 [facility] Potassium [Moles/Vol] 3.7 mmol/L 3.5-5.1 [facility] Protein [Mass/Vol] 7.1 g/dL 6.4-8.2 [facility] Sodium [Moles/Vol] 141 mmol/L 136-145 [facility] Triglyceride [Mass/Vol] 176 mg/dL <199 [facility] Comment on above: The drugs N-Acetylcy steine and Metamizole may falsely depress this assay.Serum Triglycerides Reference Interval Normal <150 mg/dL Borderline high 150 - 199 mg/dL High 200 - 499 mg/dL Very High > or = 500 mg/dL WBC (Bld) [#/Vol] 6.5 10*3/uL 4.4-11.0 [facility] Determination of erythrocyte mean corpuscular volume (MCV)Ordered By: Beny Kerr on 12-13-2023 MCV (RBC) [Entitic vol] 96.4 fL 81-99 [facility] Erythrocyte distribution wid th ratioOrdered By: Beny Kerr 12-13-2023 Erythrocyte distribution width (RBC) [Ratio] 11.9 % 11.6-14.6 [facility] Erythrocyte distribution wid th standard deviationOrdered By: Beny Kerr 12-13-2023 Erythrocyte distribution width (RBC) [Entitic vol] 41.7 fL 35.1-43.9 [facility] Hematocrit Auto (Bld) [Volum e fraction]Ordered By: Beny Kerr 12-13-2023 Hematocrit (Bld) [Volume fraction] 40.0 % 37-47 [facility] Immature granulocytes/100 WB C Auto (Bld)Ordered By: Beny Kerr 12-13-2023 Immature granulocytes/100 WBC (Bld) 0.600 % 0.0-0.9 [facility] Comment on above: IG% - Immature Granu locytes (promyelocytes, myelocytes and metamyelocytes) > 1% indicates that a LEFT SHIFT is Present. Laboratory - Chemistry and C hemistry - challengeOrdered By: Beny Kerr on 12-13-2023 Albumin/Globulin [Mass ratio] 1.0 {ratio} 0.9-2.4 [facility] ALP [Catalytic activity/Vol] 109 U/L 45-117 [facility] ALT [Catalytic activity/Vol] 34 U/L 13-56 [facility] Cholesterol in HDL [Mass/Vol] 37 mg/dL >40 [facility] Comment on above: The drugs N-Acetylcy steine and Metamizole may falsely depress this assay. Reference Range HDL <40 mg/dL Low HDL Cholesterol HDL >or= 60 mg/dL High HDL Cholesterol Cholesterol in LDL [Mass/Vol] 130 mg/dL 0-130 [facility] CO2 [Moles/Vol] 27.0 mmol/L 21.0-32.0 [facility] Globulin (S) [Mass/Vol] 3.6 g/dL 2.2-4.2 [facility] Urea nitrogen/Creatinine [Mass ratio] 19.7 mg/mg 10-20 [facility] - Hematology and Cell countsOrdered By: Beny Kerr on 12-13-2023 MCH (RBC) [Entitic mass] 31.6 pg 27.0-32.0 [facility] MCHC (RBC) [Mass/Vol] 32.8 g/dL 32-36 [facility] Nucleated RBC/100 WBC (Bld) [Ratio] 0 % 0-5 [facility] Platelet mean volume (Bld) [Entitic vol] 9.4 fL 6.2-12.0 [facility] Platelets (Bld) [#/Vol] 211 10*3/uL 150-450 [facility] No Panel InformationOrdered By: Beny Kerr on 12-13-2023 Estimated GFR (MDRD) Amer 101 mL/min >60 [facility] Comment on above: GFR Calc Estimated GFR (MDRD) Non-Af Amer 84 mL/min >60 [facility] Comment on above: Non- GFR Calc VLDL Cholesterol 35 mg/dL 5-40 [facility] RBC Auto (Bld) [#/Vol]Ordere d By: Beny Kerr on 12-13-2023 RBC (Bld) [#/Vol] 4.15 10*6/uL 4.2-5.4 [facility] Serum or plasma calcium shira urement (mass/volume)Ordered By: Beny Kerr on 12-13-2023 Calcium [Mass/Vol] 9.3 mg/dL 8.5-10.1 [facility] Serum or plasma creatinine m easurement (mass/volume)Ordered By: Beny Kerr on 12-13-2023 Creatinine [Mass/Vol] 0.76 mg/dL 0.55-1.02 [facility] Comment on above: The validity of the calculated GFR & GFRAA in patients over 70 years has not been determined. Clinical correlation is essential. Serum or plasma thyroid stim ulating hormone (TSH) measurement (units/volume)Ordered By: Beny Kerr on 12-13-2023 TSH Qn 1.57 uIU/mL 0.358-3.74 [facility] Serum or plasma urea nitroge n measurement (mass/volume)Ordered By: Beny Kerr on 12-13-2023 Urea nitrogen [Mass/Vol] 15 mg/dL 7-18 [facility] Thin prep Papanicolaou smear with manual screeningOrdered By: Beny Kerr on 12-13-2023 Thin prep Papanicolaou smear with manual screening 3.5 g/dL 3.2-5.0 [facility] Thin prep Papanicolaou smear with manual screening 24 U/L 15-37 [facility] Thin prep Papanicolaou smear with manual screening 5 5-15 [facility] Whole blood hemoglobin A1c/t otal hemoglobin ratio (mass fraction)Ordered By: Beny Kerr on 12-13-2023 HbA1c (Bld) [Mass fraction] 5.5 % 3.8-5.6 [facility] Comment on above: Normal < 5.7 % Predi abetic 5.7 - 6.4 % Diabetic >or= 6.5 % Please note range changes. Absolute lymphocyte countOrd ered By: Beny Kerr on 06-10-2023 Lymphocytes Auto (Unsp spec) [#/Vol] 2.04 10*3/uL 0.83-4.51 [facility] Basophil percentageOrdered B y: Beny Kerr on 06-10-2023 Basophils/100 WBC (Bld) 0.9 % 0-1 [facility] Bilirubin [Mass/Vol] 0.30 mg/dL 0.20-1.00 [facility] Comment on above: For patients on eltr ombopag therapy, use of Dimension [place] TBIL is not recommended. Chloride [Moles/Vol] 108 mmol/L 98-107 [facility] Cholesterol [Mass/Vol] 205 mg/dL <200 [facility] Comment on above: <200 mg/dL Desirable 200-240 mg/dL Borderline >240 mg/dL High Risk Eosinophils/100 WBC (Bld) 1.5 % 0-5 [facility] Glucose [Mass/Vol] 113 mg/dL 74-106 [facility] Comment on above: Fasting Glucose resu lt from 100 to 125 mg/dL suggests IMPAIRED HOMEOSTASIS per A.D.A. criteria. Neutrophils (Bld) [#/Vol] 5.4 10*3/uL 2.0-7.7 [facility] Neutrophils/100 WBC (Bld) 66.0 % 47-70 [facility] Potassium [Moles/Vol] 4.0 mmol/L 3.5-5.1 [facility] Protein [Mass/Vol] 7.1 g/dL 6.4-8.2 [facility] Sodium [Moles/Vol] 140 mmol/L 136-145 [facility] Triglyceride [Mass/Vol] 308 mg/dL <199 [facility] Comment on above: The drugs N-Acetylcy steine and Metamizole may falsely depress this assay.Serum Triglycerides Reference Interval Normal <150 mg/dL Borderline high 150 - 199 mg/dL High 200 - 499 mg/dL Very High > or = 500 mg/dL WBC (Bld) [#/Vol] 8.2 10*3/uL 4.4-11.0 [facility] Blood erythrocytes count (nu mber/volume)Ordered By: Beny Kerr on 06-10-2023 RBC (Bld) [#/Vol] 4.22 10*6/uL 4.2-5.4 [facility] Blood hemoglobin measurement (mass/volume)Ordered By: [facility]3] Satish on 06-10-2023 Hemoglobin (Bld) [Mass/Vol] 13.5 g/dL 12.0-15.0 [facility] Blood lymphocytes/100 leukoc ytesOrdered By: [facility]3] Satish on 06-10-2023 Lymphocytes/100 WBC (Bld) 24.8 % 19-41 [facility] Blood monocytes/100 leukocyt esOrdered By: [facility]3] Satish on 06-10-2023 Monocytes/100 WBC (Bld) 5.8 % 0-10 [facility] Blood platelet mean volumeOr dered By: [facility] Platelet mean volume (Bld) [Entitic vol] 9.5 fL 6.2-12.0 [facility] Determination of erythrocyte mean corpuscular volume (MCV)Or[facility] MCV (RBC) [Entitic vol] 99.8 fL 81-99 [facility] Hematocrit Auto (Bld) [Volum e fraction][facility]: [facility]-10-[facility]23 Hematocrit (Bld) [Volume fraction] 42.1 % 37-47 [facility] - Chemistry and C hemistry - challengeOrdered By: [facility] on 06-10-2023 ALP [Catalytic activity/Vol] 106 U/L 45-117 [facility] ALT [Catalytic activity/Vol] 24 U/L 13-56 [facility] CO2 [Moles/Vol] 27.0 mmol/L 21.0-32.0 [facility] Globulin (S) [Mass/Vol] 3.6 g/dL 2.2-4.2 [facility] Urea nitrogen/Creatinine [Mass ratio] 29.5 mg/mg 10-20 [facility] - Hematology and Cell countsOrdered By: [facility] on 06-10-2023 Erythrocyte distribution width (RBC) [Entitic vol] 45.1 fL 35.1-43.9 [facility] Erythrocyte distribution width (RBC) [Ratio] 12.1 % 11.6-14.6 [facility] Immature granulocytes/100 WBC (Bld) 1.000 % 0.0-0.9 [facility] Comment on above: IG% - Immature Granu locytes (promyelocytes, myelocytes and metamyelocytes) > 1% indicates that a LEFT SHIFT is Present. MCH (RBC) [Entitic mass] 32.0 pg 27.0-32.0 [facility] Nucleated RBC/100 WBC (Bld) [Ratio] 0 % 0-5 [facility] MCHC Auto (RBC) [Mass/Vol]Or dered By: Beny Kerr on 06-10-2023 MCHC (RBC) [Mass/Vol] 32.1 g/dL 32-36 [facility] No Panel InformationOrdered By: Beny Kerr on 06-10-2023 Estimated GFR (MDRD) Amer 104 mL/min >60 [facility] Comment on above: GFR Calc Estimated GFR (MDRD) Non-Af Amer 86 mL/min >60 [facility] Comment on above: Non- GFR Calc Thyroid Stimulating Hormone (TSH) 0.94 uIU/mL 0.358-3.74 [facility] Platelets bldOrdered By: Beny Kerr on 06-10-2023 Platelets (Bld) [#/Vol] 202 10*3/uL 150-450 [facility] Serum or plasma albumin shira urement (mass/volume)Ordered By: Beny Kerr on 06-10-2023 Albumin [Mass/Vol] 3.5 g/dL 3.2-5.0 [facility] Serum or plasma albumin/glob ulin mass ratioOrdered By: Beny Kerr 06-10-2023 Albumin/Globulin [Mass ratio] 1.0 {ratio} 0.9-2.4 [facility] Serum or plasma calcium shira urement (mass/volume)Ordered By: Beny Kerr on 06-10-2023 Calcium [Mass/Vol] 9.4 mg/dL 8.5-10.1 [facility] Serum or plasma cholesterol in HDL measurement (mass/volume)Ordered By: Beny Kerr on 06-10-2023 Cholesterol in HDL [Mass/Vol] 35 mg/dL >40 [facility] Comment on above: The drugs N-Acetylcy steine and Metamizole may falsely depress this assay. Reference Range HDL <40 mg/dL Low HDL Cholesterol HDL >or= 60 mg/dL High HDL Cholesterol Serum or plasma cholesterol in VLDL measurement (mass/volume)Ordered By: Beny Kerr on 06-10-2023 Cholesterol in VLDL [Mass/Vol] 62 mg/dL 5-40 [facility] Serum or plasma creatinine m easurement (mass/volume)Ordered By: Beny Kerr on 06-10-2023 Creatinine [Mass/Vol] 0.75 mg/dL 0.55-1.02 [facility] Comment on above: The validity of the calculated GFR & GFRAA in patients over 70 years has not been determined. Clinical correlation is essential. Serum or plasma low density lipoprotein (LDL) cholesterol measurement (mass/volume)Ordered By: Beny Kerr on 06-10-2023 Cholesterol in LDL [Mass/Vol] 108 mg/dL 0-130 [facility] Serum or plasma urea nitroge n measurement (mass/volume)Ordered By: Beny Kerr on 06-10-2023 Urea nitrogen [Mass/Vol] 22 mg/dL 7-18 [facility] Thin prep Papanicolaou smear with manual screeningOrdered By: Beny Kerr on 06-10-2023 Thin prep Papanicolaou smear with manual screening 12 U/L 15-37 [facility] Thin prep Papanicolaou smear with manual screening 5 5-15 [facility] XR CHEST 2 VIEWSon 3 XR CHEST 2 VIEWS ORIGINAL EXAMINATION: TWO XRAY VIEWS OF THE CHEST01/13/2023 6:10 pm COMPARISON: None. HISTORY: ORDERING SYSTEM PROVIDED HISTORY: Reason for Exam: pain FINDINGS: The cardiomediastinal silhouette is unremarkable. There is no pulmonary vascular congestion. There is no focal consolidation. No pleural effusion. No pneumothorax. Degenerative changes of the spine. IMPRESSION: No focal consolidation or edema. I have personally reviewed the images of this examination and agree with the resident's findings and interpretation. Interpreted by: Jean Paul Tsang Preliminary Report By: Sherwin Corral Electronically signed By Jean Paul Tsang Dictated Date: 01/13/2023 6:14:42 PM Prelim Date: 01/13/2023 6:16:42 PM Sign Date: 01/13/2023 6:17:54 PM Ordering Provider: ANN MOHR [facility] ([place]) XR ELBOW MINIMUM 3 VIEWS LEF Ton 01-13-2023 XR ELBOW MINIMUM 3 VIEWS LEFT ORIGINAL EXAMINATION: THREE XRAY VIEWS OF THE LEFT ELBOW 01/13/2023 6:11 pm COMPARISON: None. HISTORY: ORDERING SYSTEM PROVIDED HISTORY: Reason for Exam: pain FINDINGS: Minimally displaced fracture of the radial neck head junction. No dislocation. IMPRESSION: Minimally displaced fracture of the radial neck head junction. Interpreted by: Jean Paul Tsang Preliminary Report By: Jean Paul Tsang Electronically signed By Jean Paul Tsang Dictated Date: 01/13/2023 6:12:53 PM Prelim Date: 01/13/2023 6:14:35 PM Sign Date: 01/13/2023 6:14:35 PM Ordering Provider: ANN MOHR [facility] ([place]) XR HAND AND WRIST 6 VIEWS LE FTon 01-13-2023 XR HAND AND WRIST 6 VIEWS LEFT ORIGINAL EXAMINATION: 6 XRAY VIEWS OF THE left upper EXTREMITY 01/13/2023 6:13 pm COMPARISON: None. HISTORY: ORDERING SYSTEM PROVIDED HISTORY: Reason for Exam: pain FINDINGS: No acute fracture or dislocation. No acute osseous abnormality. There are scattered degenerative changes, mild. No unexpected radiopaque foreign bodies other than the patient's ring on the 4th digit. IMPRESSION: No acute fracture or dislocation. Interpreted by: Yuni Saldivar MD Preliminary Report By: Yuni Saldivar MD Electronically signed By Yuni Saldivar MD Dictated Date: 01/13/2023 6:15:40 PM Prelim Date: 01/13/2023 6:17:37 PM Sign Date: 01/13/2023 6:17:37 PM Ordering Provider: ANN MOHR [facility] ([place]) XR RIBS 2 VIEWS RIGHTon 12-18 XR RIBS 2 VIEWS RIGHT ORIGINAL EXAMINATION: 2 XRAY VIEWS OF THE RIGHT RIBS 01/13/2023 6:10 pm COMPARISON: None. HISTORY: ORDERING SYSTEM PROVIDED HISTORY: Reason for Exam: pain FINDINGS: No visible rib fracture. IMPRESSION: No visible rib fracture. Interpreted by: Jean Paul Tsang Preliminary Report By: Jean Paul Tsang Electronically signed By Jean Paul Tsang Dictated Date: 01/13/2023 6:11:28 PM Prelim Date: 01/13/2023 6:12:45 PM Sign Date: 01/13/2023 6:12:45 PM Ordering Provider: ANN MOHR [facility] [place]) [place] SHOULDER MINIMUM 2 VIEWS LEFTon 01-13-2023 XR SHOULDER MINIMUM 2 VIEWS LEFT ORIGINAL EXAMINATION: 3 XRAY VIEWS OF THE LEFT SHOULDER 01/13/2023 6:12 pm COMPARISON: None. HISTORY: ORDERING SYSTEM PROVIDED HISTORY: Reason for Exam: pain FINDINGS: No fracture or dislocation. IMPRESSION: No fracture or dislocation. Interpreted by: Jean Paul Tsang Preliminary Report By: Jean Paul Tsang Electronically signed By Jean Paul Tsang Dictated Date: 01/13/2023 6:14:46 PM Prelim Date: 01/13/2023 6:15:38 PM Sign Date: 01/13/2023 6:15:38 PM Ordering Provider: ANN MOHR [facility] ([place]) Absolute lymphocyte countOrd ered By: Dr. Kerr on 12-10-2022 Lymphocytes Auto (Unsp spec) [#/Vol] 2.15 10*3/uL 0.83-4.51 [facility] Basophil percentageOrdered B y: Dr. Kerr on 12-10-2022 Basophils/100 WBC (Bld) 0.4 % 0-1 [facility] Bilirubin [Mass/Vol] 0.30 mg/dL 0.20-1.00 [facility] Comment on above: For patients on eltr ombopag therapy, use of Dimension [place] TBIL is not recommended. Chloride [Moles/Vol] 108 mmol/L 98-107 [facility] Cholesterol [Mass/Vol] 189 mg/dL <200 [facility] Comment on above: <200 mg/dL Desirable 200-240 mg/dL Borderline >240 mg/dL High Risk Eosinophils/100 WBC (Bld) 1.3 % 0-5 [facility] Glucose [Mass/Vol] 119 mg/dL 74-106 [facility] Comment on above: Fasting Glucose resu lt from 100 to 125 mg/dL suggests IMPAIRED HOMEOSTASIS per A.D.A. criteria. Neutrophils (Bld) [#/Vol] 5.3 10*3/uL 2.0-7.7 [facility] Neutrophils/100 WBC (Bld) 65.6 % 47-70 [facility] Potassium [Moles/Vol] 4.1 mmol/L 3.5-5.1 [facility] Protein [Mass/Vol] 7.0 g/dL 6.4-8.2 [facility] Sodium [Moles/Vol] 138 mmol/L 136-145 [facility] Triglyceride [Mass/Vol] 236 mg/dL <199 [facility] Comment on above: The drugs N-Acetylcy steine and Metamizole may falsely depress this assay.Serum Triglycerides Reference Interval Normal <150 mg/dL Borderline high 150 - 199 mg/dL High 200 - 499 mg/dL Very High > or = 500 mg/dL WBC (Bld) [#/Vol] 8.0 10*3/uL 4.4-11.0 [facility] Blood erythrocytes count (nu mber/volume)Ordered By: Dr. Kerr on 12-10-2022 RBC (Bld) [#/Vol] 4.12 10*6/uL 4.2-5.4 [facility] Blood hemoglobin measurement (mass/volume)Ordered By: Dr. Kerr on 12-10-2022 Hemoglobin (Bld) [Mass/Vol] 13.3 g/dL 12.0-15.0 [facility] Blood lymphocytes/100 leukoc ytesOrdered By: Dr. Kerr on 12-10-2022 Lymphocytes/100 WBC (Bld) 26.9 % 19-41 [facility] Blood monocytes/100 leukocyt esOrdered By: Dr. Kerr on 12-10-2022 Monocytes/100 WBC (Bld) 4.9 % 0-10 [facility] Blood platelet mean volumeOr dered By: Dr. Kerr on 12-10-2022 Platelet mean volume (Bld) [Entitic vol] 9.8 fL 6.2-12.0 [facility] Determination of erythrocyte mean corpuscular volume (MCV)Ordered By: Dr. Kerr on 12-10-2022 MCV (RBC) [Entitic vol] 98.5 fL 81-99 [facility] Hematocrit Auto (Bld) [Volum e fraction]Ordered By: Dr. Kerr on 12-10-2022 Hematocrit (Bld) [Volume fraction] 40.6 % 37-47 [facility] Laboratory - Chemistry and C hemistry - challengeOrdered By: Dr. eKrr on 12-10-2022 ALP [Catalytic activity/Vol] 99 U/L 45-117 [facility] ALT [Catalytic activity/Vol] 36 U/L 13-56 [facility] CO2 [Moles/Vol] 26.0 mmol/L 21.0-32.0 [facility] Globulin (S) [Mass/Vol] 3.5 g/dL 2.2-4.2 [facility] Urea nitrogen/Creatinine [Mass ratio] 30.4 mg/mg 10-20 [facility] Laboratory - Hematology and Cell countsOrdered By: Dr. Kerr on 12-10-2022 Erythrocyte distribution width (RBC) [Entitic vol] 44.3 fL 35.1-43.9 [facility] Erythrocyte distribution width (RBC) [Ratio] 12.2 % 11.6-14.6 [facility] Immature granulocytes/100 WBC (Bld) 0.900 % 0.0-0.9 [facility] Comment on above: IG% - Immature Granu locytes (promyelocytes, myelocytes and metamyelocytes) > 1% indicates that a LEFT SHIFT is Present. MCH (RBC) [Entitic mass] 32.3 pg 27.0-32.0 [facility] Nucleated RBC/100 WBC (Bld) [Ratio] 0 % 0-5 [facility] MCHC Auto (RBC) [Mass/Vol]Or dered By: Dr. Kerr on 12-10-2022 MCHC (RBC) [Mass/Vol] 32.8 g/dL 32-36 [facility] No Panel InformationOrdered By: Dr. Kerr on 12-10-2022 Estimated GFR (MDRD) Amer 102 mL/min >60 [facility] Comment on above: GFR Calc Estimated GFR (MDRD) Non-Af Amer 84 mL/min >60 [facility] Comment on above: Non- GFR Calc Thyroid Stimulating Hormone (TSH) 1.12 uIU/mL 0.358-3.74 [facility] Platelets bldOrdered By: Dr. Kerr on 12-10-2022 Platelets (Bld) [#/Vol] 213 10*3/uL 150-450 [facility] Serum or plasma albumin shira urement (mass/volume)Ordered By: Dr. eKrr on 12-10-2022 Albumin [Mass/Vol] 3.5 g/dL 3.2-5.0 [facility] Serum or plasma albumin/glob ulin mass ratioOrdered By: Dr. Kerr on 12-10-2022 Albumin/Globulin [Mass ratio] 1.0 {ratio} 0.9-2.4 [facility] Serum or plasma calcium shira urement (mass/volume)Ordered By: Dr. Kerr on 12-10-2022 Calcium [Mass/Vol] 8.8 mg/dL 8.5-10.1 [facility] Serum or plasma cholesterol in HDL measurement (mass/volume)Ordered By: Dr. Kerr on 12-10-2022 Cholesterol in HDL [Mass/Vol] 37 mg/dL >40 [facility] Comment on above: The drugs N-Acetylcy steine and Metamizole may falsely depress this assay. Reference Range HDL <40 mg/dL Low HDL Cholesterol HDL >or= 60 mg/dL High HDL Cholesterol Serum or plasma cholesterol in VLDL measurement (mass/volume)Ordered By: Dr. Kerr on 12-10-2022 Cholesterol in VLDL [Mass/Vol] 47 mg/dL 5-40 [facility] Serum or plasma creatinine m easurement (mass/volume)Ordered By: Dr. Kerr on 12-10-2022 Creatinine [Mass/Vol] 0.76 mg/dL 0.55-1.02 [facility] Comment on above: The validity of the calculated GFR & GFRAA in patients over 70 years has not been determined. Clinical correlation is essential. Serum or plasma low density lipoprotein (LDL) cholesterol measurement (mass/volume)Ordered By: Dr. Kerr on 12-10-2022 Cholesterol in LDL [Mass/Vol] 105 mg/dL 0-130 [facility] Serum or plasma urea nitroge n measurement (mass/volume)Ordered By: Dr. Kerr on 12-10-2022 Urea nitrogen [Mass/Vol] 23 mg/dL 7-18 [facility] Thin prep Papanicolaou smear with manual screeningOrdered By: Dr. Kerr on 12-10-2022 Thin prep Papanicolaou smear with manual screening 19 U/L 15-37 [facility] Thin prep Papanicolaou smear with manual screening 4 5-15 [facility] Absolute lymphocyte counton 06-04-2022 Lymphocytes Auto (Unsp spec) [#/Vol] 2.60 10*3/uL 0.83-4.51 [facility] Work Phone: [phone] Basophil percentageon 2021 Basophils/100 WBC (Bld) 0.5 % 0-1 [facility] Work Phone: [phone] Bilirubin [Mass/Vol] 0.50 mg/dL 0.20-1.00 [facility] Work Phone: [phone] Comment on above: For patients on eltr ombopag therapy, use of Dimension [place] TBIL is not recommended. Chloride [Moles/Vol] 108 mmol/L 98-107 [facility] Work Phone: [phone] Eosinophils/100 WBC (Bld) 1.0 % 0-5 [facility] Work Phone: Glucose [Mass/Vol] 121 mg/dL 74-106 [facility] Work Phone: Comment on above: Fasting Glucose resu lt from 100 to 125 mg/dL suggests IMPAIRED HOMEOSTASIS per A.D.A. criteria. Neutrophils (Bld) [#/Vol] 6.4 10*3/uL 2.0-7.7 [facility] Work Phone: [phone] Neutrophils/100 WBC (Bld) 65.9 % 47-70 [facility] Work Phone: Potassium [Moles/Vol] 4.4 mmol/L 3.5-5.1 [facility] Work Phone: Protein [Mass/Vol] 7.4 g/dL 6.4-8.2 [facility] Work Phone: [phone] Sodium [Moles/Vol] 141 mmol/L 136-145 [facility] Work Phone: [phone] WBC (Bld) [#/Vol] 9.7 10*3/uL 4.4-11.0 [facility] Work Phone: [phone] Blood erythrocytes count (nu mber/volume)on 06-04-2022 RBC (Bld) [#/Vol] 4.50 10*6/uL 4.2-5.4 [facility] Work Phone: Blood hemoglobin measurement (mass/volume)on 06-04-2022 Hemoglobin (Bld) [Mass/Vol] 14.3 g/dL 12.0-15.0 [facility] Work Phone: Blood lymphocytes/100 leukoc yteson 06-04-2022 Lymphocytes/100 WBC (Bld) 26.8 % 19-41 [facility] Work Phone: Blood monocytes/100 leukocyt eson 06-04-2022 Monocytes/100 WBC (Bld) 5.3 % 0-10 [facility] Work Phone: Blood platelet mean volumeon 06-04-2022 Platelet mean volume (Bld) [Entitic vol] 10.2 fL 6.2-12.0 [facility] Work Phone: Determination of erythrocyte mean corpuscular volume (MCV)on 06-04-2022 MCV (RBC) [Entitic vol] 95.3 fL 81-99 [facility] Work Phone: Hematocrit Auto (Bld) [Volum e fraction]on 06-04-2022 Hematocrit (Bld) [Volume fraction] 42.9 % 37-47 [facility] Work Phone: Laboratory - Chemistry and C hemistry - challengeon 06-04-2022 ALP [Catalytic activity/Vol] 98 U/L 45-117 [facility] Work Phone: ALT [Catalytic activity/Vol] 29 U/L 13-56 [facility] Work Phone: CO2 [Moles/Vol] 26.0 mmol/L 21.0-32.0 [facility] Work Phone: Globulin (S) [Mass/Vol] 3.7 g/dL 2.2-4.2 [facility] Work Phone: Urea nitrogen/Creatinine [Mass ratio] 26.3 mg/mg 10-20 [facility] Work Phone: Laboratory - Hematology and Cell countson 06-04-2022 Erythrocyte distribution width (RBC) [Entitic vol] 45.1 fL 35.1-43.9 [facility] Work Phone: Erythrocyte distribution width (RBC) [Ratio] 12.9 % 11.6-14.6 [facility] Work Phone: Immature granulocytes/100 WBC (Bld) 0.500 % 0.0-0.9 [facility] Work Phone: Comment on above: IG% - Immature Granu locytes (promyelocytes, myelocytes and metamyelocytes) > 1% indicates that a LEFT SHIFT is Present. MCH (RBC) [Entitic mass] 31.8 pg 27.0-32.0 [facility] Work Phone: Nucleated RBC/100 WBC (Bld) [Ratio] 0 % 0-5 [facility] Work Phone: MCHC Auto (RBC) [Mass/Vol]on 06-04-2022 MCHC (RBC) [Mass/Vol] 33.3 g/dL 32-36 [facility] Work Phone: No Panel Informationon 06-04 Estimated GFR (MDRD) Amer 87 mL/min >60 [facility] Work Phone: Comment on above: GFR Calc Estimated GFR (MDRD) Non-Af Amer 72 mL/min >60 [facility] Work Phone: Comment on above: Non- GFR Calc Thyroid Stimulating Hormone (TSH) 0.94 uIU/mL 0.358-3.74 [facility] Work Phone: Vitamin D 25-Hydroxy 14.3 ng/mL [facility] Work Phone: Comment on above: Vitamin D 25(OH) Sta tus Range Deficiency <20 ng/mL (50nmol/L) Insufficiency 20 - 30 ng/mL (50 - 75 nmol/L) Sufficiency 30 - 100 ng/mL (75 - 250 nmol/L) Toxicity >100 ng/mL (>250 nmol/L) Platelets bldon 06-04-2022 Platelets (Bld) [#/Vol] 216 10*3/uL 150-450 [facility] Work Phone: Serum or plasma albumin shira urement (mass/volume)on 06-04-2022 Albumin [Mass/Vol] 3.7 g/dL 3.2-5.0 [facility] Work Phone: Serum or plasma albumin/glob ulin mass ratioon 06-04-2022 Albumin/Globulin [Mass ratio] 1.0 {ratio} 0.9-2.4 [facility] Work Phone: Serum or plasma calcium shira urement (mass/volume)on 06-04-2022 Calcium [Mass/Vol] 9.4 mg/dL 8.5-10.1 [facility] Work Phone: Serum or plasma creatinine m easurement (mass/volume)on 06-04-2022 Creatinine [Mass/Vol] 0.87 mg/dL 0.55-1.02 [facility] Work Phone: Comment on above: The validity of the calculated GFR & GFRAA in patients over 70 years has not been determined. Clinical correlation is essential. Serum or plasma urea nitroge n measurement (mass/volume)on 06-04-2022 Urea nitrogen [Mass/Vol] 23 mg/dL 18 [facility] Work Phone: Thin prep Papanicolaou smear with manual screeningon 06-04-2022 Thin prep Papanicolaou smear with manual screening 9 U/L 15-37 [facility] Work Phone: Thin prep Papanicolaou smear with manual screening 7 5-15 [facility] Work Phone: Absolute lymphocyte counton 12-04-2021 Lymphocytes Auto (Unsp spec) [#/Vol] 2.28 10*3/uL 0.83-4.51 [facility] Work Phone: Basophil percentageon 2021 Basophils/100 WBC (Bld) 0.7 % 0-1 [facility] Work Phone: Bilirubin [Mass/Vol] 0.30 mg/dL 0.20-1.00 [facility] Work Phone: Comment on above: For patients on eltr ombopag therapy, use of [place]ension [place] TBIL is not recommended. Chloride [Moles/Vol] 108 mmol/L 98-107 [facility] Work Phone: Eosinophils/100 WBC (Bld) 1.6 % 0-5 [facility] Work Phone: Glucose [Mass/Vol] 101 mg/dL 74-106 [facility] Work Phone: Comment on above: Fasting Glucose resu lt from 100 to 125 mg/dL suggests IMPAIRED HOMEOSTASIS per A.D.A. criteria. Neutrophils (Bld) [#/Vol] 3.9 10*3/uL 2.0-7.7 [facility] Work Phone: Neutrophils/100 WBC (Bld) 57.8 % 47-70 [facility] Work Phone: Potassium [Moles/Vol] 4.0 mmol/L 3.5-5.1 [facility] Work Phone: Comment on above: Slight Hemolysis, Re sult may be falsely increased. Protein [Mass/Vol] 7.3 g/dL 6.4-8.2 [facility] Work Phone: Sodium [Moles/Vol] 141 mmol/L 136-145 [facility] Work Phone: WBC (Bld) [#/Vol] 6.7 10*3/uL 4.4-11.0 [facility] Work Phone: Blood erythrocytes count (nu mber/volume)on 12-04-2021 RBC (Bld) [#/Vol] 4.11 10*6/uL 4.2-5.4 [facility] Work Phone: Blood hemoglobin measurement (mass/volume)on 12-04-2021 Hemoglobin (Bld) [Mass/Vol] 12.9 g/dL 12.0-15.0 [facility] Work Phone: Blood lymphocytes/100 leukoc yteson 12-04-2021 Lymphocytes/100 WBC (Bld) 33.8 % 19-41 [facility] Work Phone: Blood monocytes/100 leukocyt eson 12-04-2021 Monocytes/100 WBC (Bld) 5.2 % 0-10 [facility] Work Phone: Blood platelet mean volumeon 12-04-2021 Platelet mean volume (Bld) [Entitic vol] 9.8 fL 6.2-12.0 [facility] Work Phone: Determination of erythrocyte mean corpuscular volume (MCV)on 12-04-2021 MCV (RBC) [Entitic vol] 94.9 fL 81-99 [facility] Work Phone: Hematocrit Auto (Bld) [Volum e fraction]on 12-04-2021 Hematocrit (Bld) [Volume fraction] 39.0 % 37-47 [facility] Work Phone: Laboratory - Chemistry and C hemistry - challengeon 12-04-2021 ALP [Catalytic activity/Vol] 105 U/L 45-117 [facility] Work Phone: ALT [Catalytic activity/Vol] 33 U/L 13-56 [facility] Work Phone: CO2 [Moles/Vol] 27.0 mmol/L 21.0-32.0 [facility] Work Phone: Globulin (S) [Mass/Vol] 3.6 g/dL 2.2-4.2 [facility] Work Phone: Urea nitrogen/Creatinine [Mass ratio] 26.7 mg/mg 10-20 [facility] Work Phone: Laboratory - Hematology and Cell countson 12-04-2021 Erythrocyte distribution width (RBC) [Entitic vol] 41.9 fL 35.1-43.9 [facility] Work Phone: Erythrocyte distribution width (RBC) [Ratio] 12.0 % 11.6-14.6 [facility] Work Phone: Immature granulocytes/100 WBC (Bld) 0.900 % 0.0-0.9 [facility] Work Phone: Comment on above: IG% - Immature Granu locytes (promyelocytes, myelocytes and metamyelocytes) > 1% indicates that a LEFT SHIFT is Present. MCH (RBC) [Entitic mass] 31.4 pg 27.0-32.0 [facility] Work Phone: Nucleated RBC/100 WBC (Bld) [Ratio] 0 % 0-5 [facility] Work Phone: MCHC Auto (RBC) [Mass/Vol]on 12-04-2021 MCHC (RBC) [Mass/Vol] 33.1 g/dL 32-36 [facility] Work Phone: No Panel Informationon 12-04 Estimated GFR (MDRD) Amer 104 mL/min >60 [facility] Work Phone: Comment on above: GFR Calc Estimated GFR (MDRD) Non-Af Amer 86 mL/min >60 [facility] Work Phone: Comment on above: Non- GFR Calc Thyroid Stimulating Hormone (TSH) 1.12 uIU/mL 0.358-3.74 [facility] Work Phone: Platelets bldon 12-04-2021 Platelets (Bld) [#/Vol] 212 10*3/uL 150-450 [facility] Work Phone: Serum or plasma albumin shira urement (mass/volume)on 12-04-2021 Albumin [Mass/Vol] 3.7 g/dL 3.2-5.0 [facility] Work Phone: Serum or plasma albumin/glob ulin mass ratioon 12-04-2021 Albumin/Globulin [Mass ratio] 1.0 {ratio} 0.9-2.4 [facility] Work Phone: Serum or plasma calcium shira urement (mass/volume)on 12-04-2021 Calcium [Mass/Vol] 8.8 mg/dL 8.5-10.1 [facility] Work Phone: Serum or plasma creatinine m easurement (mass/volume)on 12-04-2021 Creatinine [Mass/Vol] 0.75 mg/dL 0.55-1.02 [facility] Work Phone: Comment on above: The validity of the calculated GFR & GFRAA in patients over 70 years has not been determined. Clinical correlation is essential. Serum or plasma urea nitroge n measurement (mass/volume)on 12-04-2021 Urea nitrogen [Mass/Vol] 20 mg/dL 7-18 [facility] Work Phone: Thin prep Papanicolaou smear with manual screeningon 12-04-2021 Thin prep Papanicolaou smear with manual screening 21 U/L 15-37 [facility] Work Phone: Comment on above: Slight Hemolysis, Re sult may be falsely increased. Thin prep Papanicolaou smear with manual screening 6 5-15 [facility] Work Phone: No Panel Informationon 08-16 POC SARS CoV-2 Antigen Positive [facility] Work Phone: Influenza virus A and B and SARS-CoV-2 (COVID-19) Ag panel - Upper respiratory specim SARS-CoV-2 (COVID-19) RNA ANETTE+probe Ql (Resp) [facility] Work Phone: Vital Signs Date Time Vital Sign Value Performing Clinician Facility 01-18-2025 19:09-0400 Body temperature 98.6 [degF] Eliane BRADY Work Phone: [facility] 01-18-2025 19:09-0400 Diastolic blood pressure 76 mm[Hg] Krislyn Aberegg PA Work Phone: [facility] 01-18-2025 19:09-0400 Heart rate 63 /min Krislyn Aberegg PA Work Phone: [facility] 01-18-2025 19:09-0400 Respiratory rate 18 /min Krislyn Aberegg PA Work Phone: [facility] 01-18-2025 19:09-0400 SaO2% (BldA) [Mass fraction] 99 % Krislyn Aberegg PA Work Phone: [facility] 01-18-2025 19:09-0400 Systolic blood pressure 116 mm[Hg] Krislyn Aberegg PA Work Phone: [facility] 12-31-2024 19:44-0400 Body temperature 98.8 [degF] Niko Moomaw [employer] Work Phone: [facility] 12-31-2024 19:44-0400 Body weight 109.2 kg Niko Moomaw [employer] Work Phone: [facility] 12-31-2024 19:44-0400 Diastolic blood pressure 84 mm[Hg] Niko Moomaw [employer] Work Phone: [facility] 12-31-2024 19:44-0400 Heart rate 87 /min Niko Moomaw [employer] Work Phone: [facility] 12-31-2024 19:44-0400 Respiratory rate 18 /min Niko Moomaw [employer] Work Phone: [facility] 12-31-2024 19:44-0400 SaO2% (BldA) [Mass fraction] 98 % Niko Moomaw [employer] Work Phone: [facility] 12-31-2024 19:44-0400 Systolic blood pressure 138 mm[Hg] Niko Moomaw [employer] Work Phone: [facility] 11-09-2024 09:01-0400 Body height 160.[address] Beny Kerr MD Work Phone: [facility] 11-09-2024 09:01-0400 Body mass index (BMI) [Ratio] 42.9 kg/m2 Dr. Beny Kerr MD Work Phone: 2(000)[phone] [place] [address] 11-09-2024 09:01-0400 Body weight 109.[address] Beny Kerr MD Work Phone: 1(340)[phone] [place] [address] 08-02-2024 21:11-0500 Body temperature 98.1 [degF] Dr. Beny Kerr MD Work Phone: 0(208)[phone] [place] [address] 08-02-2024 21:11-0500 Diastolic blood pressure 69 mm[Hg] Dr. Beny Kerr MD Work Phone: 0(583)[phone] [place] [address] 08-02-2024 21:11-0500 Heart rate 50 /min Dr. Beny Kerr MD Work Phone: 5([phone])468-078232 [place] [address] 08-02-2024 21:11-0500 Respiratory rate 16 /min Dr. Beny Kerr MD Work Phone: 5(785)[phone] [place] [address] 08-02-2024 21:11-0500 SaO2% (BldA) [Mass fraction] 99 % Dr. Beny Kerr MD Work Phone: 3(297)[phone] [place] [address] 08-02-2024 21:11-0500 Systolic blood pressure 122 mm[Hg] Dr. Beny Kerr MD Work Phone: 0(844)356-399245 [place] [address] 08-02-2024 19:18-0500 Body height 160.[address] Beny Kerr MD Work Phone: 4(679)209-823032 [place] [address] 08-02-2024 19:18-0500 Body mass index (BMI) [Ratio] 44 kg/m2 Dr. Beny Kerr MD Work Phone: 1(775)434-831045 [place] [address] 08-02-2024 19:18-0500 Body weight 112.[address] Beny Kerr MD Work Phone: 2(666)854-641832 [place] [address] 07-29-2023 15:02-0500 Body height 160.[address] Beny Kerr Work Phone: 0(124)459-998245 [place] [address] 01-16-2023 13:14-0400 Body temperature 98.2 [degF] Dr. Beny Kerr Work Phone: [facility] 01-16-2023 13:14-0400 Diastolic blood pressure 81 mm[Hg] Dr. Beny Kerr Work Phone: [facility] 01-16-2023 13:14-0400 Heart rate 73 /min Dr. Beny Kerr Work Phone: [facility] 01-16-2023 13:14-0400 Respiratory rate 15 /min Dr. Beny Kerr Work Phone: [facility] 01-16-2023 13:14-0400 SaO2% (BldA) [Mass fraction] 97 % Dr. Beny Kerr Work Phone: [facility] 01-16-2023 13:14-0400 Systolic blood pressure 126 mm[Hg] Dr. Beny Kerr Work Phone: [facility] 01-16-2023 10:04-0400 Body height 160.[address] Beny Kerr Work Phone: [facility] 01-16-2023 10:04-0400 Body mass index (BMI) [Ratio] 50.5 kg/m2 Dr. Beny Kerr Work Phone: [facility] 01-16-2023 10:04-0400 Body weight 129.[address] Beny Kerr Work Phone: [facility] 01-13-2023 16:57-0400 Blood Pressure Location SADE RAMIREZ DO [facility] 01-13-2023 16:57-0400 Body temperature 98.06 [degF] SADE RAMIREZ DO [facility] 01-13-2023 16:57-0400 Diastolic Blood Pressure Non-Invasive 78 1 SADE CONTRERASHawa [facility] 01-13-2023 16:57-0400 Heart rate 84 /min SADE RAMIREZ [facility] 01-13-2023 16:57-0400 Respiratory rate 16 /min SADE RAMIREZ [facility] 01-13-2023 16:57-0400 Systolic Blood Pressure Non-Invasive 154 1 [facility] 08-12-2022 08:27-0500 Heart rate 60 /min [facility] Work Phone: 08-12-2022 08:27-0500 Respiratory rate 18 /min [facility] Work Phone: 08-12-2022 08:06-0500 Body height 160.02 cm [facility] Work Phone: 08-12-2022 08:06-0500 Body mass index (BMI) [Ratio] 47.8 kg/m2 [facility] Work Phone: 08-12-2022 08:06-0500 Body temperature 97.1 [degF] [facility] Work Phone: 08-12-2022 08:06-0500 Body weight 122.46 kg [facility] Work Phone: 08-12-2022 08:06-0500 Diastolic blood pressure 88 mm[Hg] [facility] Work Phone: 08-12-2022 08:06-0500 SaO2% (BldA) [Mass fraction] 94 % [facility] Work Phone: 08-12-2022 08:06-0500 Systolic blood pressure 174 mm[Hg] [facility] Work Phone: 08-16-2021 11:08-0500 Body height 160.[address] Beny Kerr Work Phone: [facility] Work Phone: 08-16-2021 11:08-0500 Body mass index (BMI) [Ratio] 46.9 kg/m2 Dr. Beny Kerr Work Phone: [facility] Work Phone: 08-16-2021 11:08-0500 Body temperature 97.4 [degF] Dr. Beny Kerr Work Phone: [facility] Work Phone: 08-16-2021 11:08-0500 Body weight 120.[address] Beny Kerr Work Phone: [facility] Work Phone: 08-16-2021 11:08-0500 Diastolic blood pressure 76 mm[Hg] Dr. Beny Kerr Work Phone: [facility] Work Phone: 08-16-2021 11:08-0500 Heart rate 89 /min Dr. Beny Kerr Work Phone: [facility] Work Phone: 08-16-2021 11:08-0500 Respiratory rate 18 /min Dr. Beny Kerr Work Phone: [facility] Work Phone: 08-16-2021 11:08-0500 SaO2% (BldA) [Mass fraction] 96 % Dr. Beny Kerr Work Phone: [facility] Work Phone: 08-16-2021 11:08-0500 Systolic blood pressure 122 mm[Hg] Dr. Beny Kerr Work Phone: [facility] Work Phone: Encounters Encounter Date Encounter Type Care Provider Facility Start: 02-10-2025 ambulatory [facility] Facility:[facility] Start: 01-18-2025 End: 01-18-2025 Patient encounter procedure Eliane BRADY Work Phone: [facility] Comment on above: Petechial rash (Prim melvina Dx) Start: 01-18-2025 End: 01-18-2025 ambulatory BENY CHI SATISH Facility:[facility] Start: 12-31-2024 End: 12-31-2024 Patient encounter procedure Niko Celestin [employer] Work Phone: [facility] Comment on above: Laceration of right hand without foreign body, initial encounter (Primary Dx) Start: 12-31-2024 End: 12-31-2024 ambulatory BENY CHI SATISH Facility:[facility] Start: 12-14-2024 End: 12-14-2024 ambulatory Beny Chi Satish Facility:[facility] Start: 11-23-2024 End: 11-23-2024 ambulatory Beny Chi Satish Facility:[facility] Start: 11-09-2024 End: 11-09-[address] Sarmad Cruz MD -[facility] Work Phone: Start: 11-09-2024 End: 11-09-2024 ambulatory Beny Chi Satish Facility:[facility] Start: 11-05-2024 End: 11-05-[address] Beny Kerr MD Work Phone: [facility] Work Phone: Start: 11-05-2024 End: 11-05-[address] Beny Kerr MD -MRI - [facility] Work Phone: Start: 11-05-2024 End: 11-05-2024 ambulatory Beny Chi Satish Facility:[facility] Start: 10-26-2024 ambulatory Beny Chi Satish Facility:[facility] Start: 10-22-2024 End: 10-22-[address] Beny Kerr MD Work Phone: [facility] Work Phone: Start: 10-22-2024 End: 10-22-[address] Beny Kerr MD -Radiology, [facility] Work Phone: Start: 10-22-2024 End: 10-22-2024 ambulatory Beny Chi Satish Facility:[facility] Start: 09-28-2024 End: 09-28-[address] Beny Kerr MD -Radiology, [facility] Work Phone: Start: 09-28-2024 End: 09-28-2024 ambulatory [facility] Facility:[facility] Start: 08-02-2024 End: 08-02-2024 Emergency department patient visit Dr. Luis Daniel Arango MD -Emergency Department Work Phone: Start: 06-05-2024 End: 06-05-2024 [facility] Start: 04-08-2024 End: 04-08-2024 ambulatory [facility] Facility:[facility] Start: 12-19-2023 End: 12-19-[address] Beny Kerr Work Phone: [facility] Work Phone: Start: 12-19-2023 End: 12-19-[address] Beny Kerr Work Phone: [facility] Work Phone: Start: 12-13-2023 End: 12-13-[address] Beny Krer Work Phone: [facility] Work Phone: Start: 12-13-2023 End: 12-13-[address] Beny Kerr Work Phone: [facility] [address] [place] [address] Start: 09-23-2023 End: 09-23-[address] Beny Kerr Work Phone: [facility] Work Phone: Start: 09-16-2023 End: 09-16-[address] Beny Kerr Work Phone: [facility] Work Phone: Start: 09-05-2023 End: 09-05-[address] Beny Kerr Work Phone: [facility] Work Phone: Start: 06-10-2023 End: 06-10-2023 ambulatory [facility] Work Phone: Start: 06-10-2023 End: 06-10-2023 Patient encounter procedure [facility] 3rd Flr Start: 01-16-2023 Non-patient / Non-visit Dr. Lex Kerr Work Phone: [facility] Start: 01-16-2023 End: 01-16-2023 Admission to same day surgery center Dr. Beny Kerr Work Phone: [facility] Start: 01-16-2023 End: 01-16-[address] Beny Kerr Work Phone: [facility] Work Phone: Start: 01-15-2023 End: 01-15-[address] Beny Kerr Work Phone: [facility] Start: 01-13-2023 End: 01-13-2023 Emergency department patient visit DR DORON KERR MD Facility:[facility] Start: 01-13-2023 End: 01-13-2023 Emergency department patient visit SADE RAMIREZ DO [facility] Start: 01-01-2023 End: 01-01-[address] Beny Kerr Work Phone: [facility] Start: 12-27-2022 End: 12-27-[address] Beny Kerr Work Phone: [facility] Start: 12-26-2022 End: 12-26-[address] Beny Kerr Work Phone: [facility] Work Phone: Start: 12-26-2022 End: 12-26-[address] [facility] Kerr [facility] Start: 12-13-2022 End: 12-13-[address] Beny Kerr Work Phone: [facility] Start: 12-10-2022 End: 12-10-[address] Beny Kerr Work Phone: [facility] Work Phone: Start: 12-10-2022 End: 12-10-[address] Beny Kerr Work Phone: [facility] 3rd Flr Start: 10-18-2022 End: 10-18-[address] Beny Kerr Work Phone: [facility] Start: 08-22-2022 End: 08-22-[address] Beny Kerr Work Phone: [facility] Start: 08-12-2022 End: 08-12-2022 Emergency department patient visit [facility] Start: 06-04-2022 End: 06-04-2022 ambulatory [facility] Work Phone: Start: 06-04-2022 End: 06-04-2022 Patient encounter procedure [facility] 3rd Flr Start: 05-17-2022 End: 05-17-2022 ambulatory [facility] Work Phone: Start: 05-17-2022 End: 05-17-2022 [facility] Start: 12-11-2021 End: 12-11-2021 Patient encounter procedure [facility] Start: 12-04-2021 End: 12-04-[address] Beny Kerr Work Phone: [facility] 3rd Flr Start: 08-16-2021 End: 08-16-[address] Beny Kerr Work Phone: [facility] Procedures Date Procedure Procedure Detail Performing Clinician Start: 12-31-2024 Simple repair scalp/neck/ax/genit/trunk 2.5cm/< Niko Mozulmaw [employer] Work Phone: Start: 11-05-2024 MRI of joint of lowe r extremity Dr. Beny Kerr MD Work Phone: Start: 10-22-2024 Plain x-ray of elbow Dr Sam Kerr MD Work Phone: Start: 09-28-2024 Plain X-ray of shoulder Dr. Beny Kerr MD Work Phone: Start: 09-28-2024 X-ray of knee, one o r two views Dr. Beny Kerr MD Work Phone: Start: 08-02-2024 Plain X-ray of shoulder Dr. Beny Kerr MD Work Phone: Start: 08-02-2024 X-ray of chest posteroanterior view Dr. Beny Kerr MD Work Phone: Start: 12-19-2023 Screening mammography Moisés Kerr Work Phone: Start: 01-16-2023 Excision of ganglion cyst Dr. Beny Kerr Work Phone: Start: 12-26-2022 MRI of upper limb Dr. Hawa Kerr Work Phone: Start: 10-18-2022 Plain x-ray of hand Dr. Beny Kerr Work Phone: Start: 08-22-2022 Plain chest X-ray Dr. Hawa Kerr Work Phone: Start: 08-12-2022 Plain chest X-ray Start: 05-17-2022 Plain x-ray of elbow Start: 05-17-2022 Plain X-ray of shoulder Start: 05-17-2022 Radiologic examinati on of knee Start: 12-11-2021 Screening mammography Start: 12-09-2012 Lipid 1996 panel - S leonora or Plasma Niko Celestin [employer] Work Phone: SARS-CoV-2 & FLU Ant igen (Rapid) Plan of Treatment Date Care Activity Detail Author Start: 08-18-2029 Urine microalbumin profile DTaP,Tdap,Td Vaccine (2 - Td or Tdap) [facility] Start: 01-04-2026 Screening for malignant neoplasm of colon [facility] Start: 08-02-2024 [facility] Start: 04-19-2024 Covid-19 Vaccine () Covid-19 Vaccine () [facility] Start: 01-16-2023 Application of ice collar, cap or bag [facility] Start: 01-16-2023 Assessment of risk of venous thromboembolism [facility] Start: 01-16-2023 Catheterization of vein [facility] Start: 01-16-2023 Deep breathing and coughing exercises [facility] Start: 01-16-2023 Following clinical pathway protocol [facility] Start: 01-16-2023 Incentive spirometry [facility] Start: 01-16-2023 Introduction of urinary catheter [facility] Start: 01-16-2023 Notification of physician [facility] Start: 01-16-2023 Patient discharge [facility] Start: 01-16-2023 Patient education [facility] Start: 01-16-2023 Taking patient vital signs [facility] Start: 01-16-2023 Vital signs measurements [facility] Start: 01-16-2023 [facility] Start: 01-16-2023 Medication education [facility] Start: 01-18-2018 Pneumococcal Vaccine: 50+ (1 of 1 - PCV) Pneumococcal Vaccine: 50+ (1 of 1 - PCV) [facility] Start: 01-18-2018 Shingrix Vaccine (1 of 2) Shingrix Vaccine (1 of 2) [facility] Start: 12-09-2017 Lipid panel Lipid Screening [facility] Start: 12-09-2017 Screening for malignant neoplasm of cervix Cervical Cancer Screening [facility] Start: 01-18-2013 Diabetes Screening Diabetes Screening [facility] Start: 01-18-2013 Screening for malignant neoplasm of colon [facility] Start: 2008 Screening for malignant neoplasm of breast Mammogram Screening [facility] Start: 01-18-1987 Hepatitis B Vaccine (1 of 3 - 19+ 3-dose series) Hepatitis B Vaccine (1 of 3 - 19+ 3-dose series) [facility] Start: 01-18-1986 Anxiety Screening Anxiety Screening [facility] Start: 01-18-1986 Depression Screening Depression Screening [facility] Start: 01-18-1986 Hepatitis C screening Hepatitis C Screening [facility] Start: 01-18-1986 HIV screening HIV Screening [facility] Patient Education [facility] Work Phone: Patient referral [facility] Work Phone: Immunizations Immunization Date Immunization Notes Care Provider Jake wyman 06-03-2024 influenza, seasonal, injectable, preservative free Niko Moomaw [employer] Work Phone: [facility] 08-18-2019 tetanus toxoid, redu africa diphtheria toxoid, and acellular pertussis vaccine, adsorbed Dr. Beny Kerr Work Phone: [facility] 06-29-2009 novel [id number], preservative-free, injectable Niko Moomaw [employer] Work Phone: [facility] Payers Date Payer Category Payer Self-pay [id number] 2023 Private Health Insurance MMO [employer] PPO [id number] 2023 Unknown [id number] 2023 Medicaid [id number] 1970 Unknown [id number] Unknown [id number] Unknown [id number] Unknown SELF PAY INSURANCE [id number] Unknown [facility] [id number] Unknown [id number] Unknown [id number] 462 Unknown [id number] 462 Unknown [id number] 462 Unknown [id number]. 462 Unknown [id number] .[id number]. 462 Unknown [id number] .[id number]. 462 Unknown [id number] 462 Unknown [id number] 462 Unknown [id number] 462 Unknown [id number]. 462 Social History Date Type Detail Facility Start: 08-16-2021 End: 09-23-2023 Tobacco smoking status NHIS Unknown if ever smoked [facility] Start: 09-30-[address] [facility] Start: 09-30-[address] [facility] Start: 1970 Sex Assigned At Female [facility] Tobacco smoking status No Smokin g Status Entered [facility] Start: 08-02-2024 Tobacco smoking stat us NHIS Never smoked tobacco (finding) [facility] Start: 11-05-2024 End: 11-13-2024 Sex Female (finding) [facility] Start: 12-31-2024 End: 01-18-2025 Alcoholic beverage intake Current drinker of alcohol (finding) [facility] Start: 12-31-2024 History of Social function [facility] Start: 12-31-2024 Tobacco use panel [facility] Start: 1970 Sex assigned at [facility] Goals Date Patient Goal Desired Activity /State Functional Status Date Assessment Result Facility 01-13-2023 Functional Status Assistive Device None A [facility] Mental Status Date Assessment Result Facility 01-16-2023 Cognitive function Voice/Name [facility] Work Phone: 01-13-2023 Mental Status Orientation Oriented x 4 [facility] 01-13-2023 Mental Status [facility] Clinical Notes 01-13-2023 to 01-18-2025 Eliane Stoner PA - 01/18/2025 7:24 PM Niko Liang APRN.[employer] - 12/31/2024 8:07 PM EDT Note Date & Type Note Facility 01-18-2025 Note HNO ID: [id number] Author: ELIANE STONER PA Service: ? Author Type: Physician Geophysical Operator Type: Progress Notes Filed: 01/18/2025 19:26 Note Text: [facility] Subjective Roberta Callaway is a 55 year old female. Patient presents with: Rash: Rash on chest x 1 day HPI Rash: - Rash onset early this morning, localized to the neck and shoulder area. - Rash is intensely pruritic; patient describes wanting to scratch the skin off. - Rash is confined to areas that were exposed to sun on Saturday; no previous issues with sun exposure. - Noticed rash after wearing a chain necklace, which was replaced about a month ago. - Rash is not present elsewhere on the body. - Denies fever, myalgias, or other systemic symptoms. - Denies known trauma. - No history of similar rashes. Recent Medication Use: - Took Excedrin Migraine yesterday for headache; contains aspirin. - Typically uses Tylenol Arthritis and meloxicam for pain management. - Recently started using frankincense oil on knees and shoulder. - Took a couple of doses of Excedrin this week for headaches believed to be due to sinus pressure. Review of Systems Constitutional: (-) fever, (-) myalgias Head: (+) headache Eyes: (+) foreign body sensation Ears/Nose/Mouth/Throat: (+) sinus pressure Musculoskeletal: (+) bilateral knee pain, (+) shoulder pain Skin: (+) rash sun-exposed area, (+) pruritus, (+) hives, (+) skin bumps, (+) petechiae, (-) rash elsewhere Objective BP 116/76 Pulse 63 Temp 37 ?C (98.6 ?F) (Tympanic) Resp 18 LMP 10/15/2010 SpO2 99% Physical Exam Vitals and nursing note reviewed. Constitutional: General: She is not in acute distress. Appearance: Normal appearance. She is not toxic-appearing. Cardiovascular: Rate and Rhythm: Normal rate and regular rhythm. Pulmonary: Effort: Pulmonary effort is normal. Breath sounds: Normal breath sounds. Skin: General: Skin is warm and dry. Findings: Erythema and rash present. Comments: Erythematous rash noted on chest erythema is blanchable. Patient has petechiae noted on the upper chest as well. No rash anywhere else. No lymphatic streaking. No vesicular lesions, drainage or abscess Neurological: Mental Status: She is alert. General: No acute distress. Skin: Erythematous rash with petechiae on chest, no other trauma noted. {1. Petechial rash (R23.3) - Acute onset of petechial rash with pruritus, localized to areas with recent sun exposure; no other associated symptoms such as fever or body aches. - Differential diagnosis includes thrombocytopenia or other hematological disorders. - Advised immediate evaluation in the emergency room for stat blood work to assess platelet counts and clotting factors. - Educated patient on the potential seriousness of petechiae and the need for prompt investigation. Recording using [employer] software for draft documentation of the visit was discussed with the patient/authorized in home sales representative; all questions welcomed and answered. Patient/authorized in home sales representative agreed to proceed Disposition The patient was other (comment). Procedures [facility] 01-18-2025 History of Present illness Narrative Images from the original note were not included. [facility] Subjective Roberta Callaway is a 55 year old female. Patient presents with: Rash: Rash on chest x 1 day HPI Rash: - Rash onset early this morning, localized to the neck and shoulder area. - Rash is intensely pruritic; patient describes wanting to scratch the skin off. - Rash is confined to areas that were exposed to sun on Saturday; no previous issues with sun exposure. - Noticed rash after wearing a chain necklace, which was replaced about a month ago. - Rash is not present elsewhere on the body. - Denies fever, myalgias, or other systemic symptoms. - Denies known trauma. - No history of similar rashes. Recent Medication Use: - Took Excedrin Migraine yesterday for headache; contains aspirin. - Typically uses Tylenol Arthritis and meloxicam for pain management. - Recently started using frankincense oil on knees and shoulder. - Took a couple of doses of Excedrin this week for headaches believed to be due to sinus pressure. Review of Systems Constitutional: (-) fever, (-) myalgias Head: (+) headache Eyes: (+) foreign body sensation Ears/Nose/Mouth/Throat: (+) sinus pressure Musculoskeletal: (+) bilateral knee pain, (+) shoulder pain Skin: (+) rash sun-exposed area, (+) pruritus, (+) hives, (+) skin bumps, (+) petechiae, (-) rash elsewhere Objective BP 116/76 Pulse 63 Temp 37 C (98.6 F) (Tympanic) Resp 18 LMP 10/15/2010 SpO2 99% Physical Exam Vitals and nursing note reviewed. Constitutional: General: She is not in acute distress. Appearance: Normal appearance. She is not toxic-appearing. Cardiovascular: Rate and Rhythm: Normal rate and regular rhythm. Pulmonary: Effort: Pulmonary effort is normal. Breath sounds: Normal breath sounds. Skin: General: Skin is warm and dry. Findings: Erythema and rash present. Comments: Erythematous rash noted on chest erythema is blanchable. Patient has petechiae noted on the upper chest as well. No rash anywhere else. No lymphatic streaking. No vesicular lesions, drainage or abscess Neurological: Mental Status: She is alert. General: No acute distress. Skin: Erythematous rash with petechiae on chest, no other trauma noted. {1. Petechial rash (R23.3) - Acute onset of petechial rash with pruritus, localized to areas with recent sun exposure; no other associated symptoms such as fever or body aches. - Differential diagnosis includes thrombocytopenia or other hematological disorders. - Advised immediate evaluation in the emergency room for stat blood work to assess platelet counts and clotting factors. - Educated patient on the potential seriousness of petechiae and the need for prompt investigation. Recording using [employer] software for draft documentation of the visit was discussed with the patient/authorized in home sales representative; all questions welcomed and answered. Patient/authorized in home sales representative agreed to proceed Disposition The patient was other (comment). Procedures documented in this encounter [facility] 12-31-2024 Note Niko Celestin APRN.CN P 12/31/2024 8:11 PM Laceration Procedure: right small finger Date/Time: 12/31/2024 8:08 PM Performed by: Niko Celestin APRN.CNP Authorized by: Niko Celestin APRN.CNP Informed Consent Consent Obtained: Verbal [place] Protocol SIGN IN Special Equipment: N/A Patient/Surrogate Stated/Verified: Patient name and Date of TIME OUT Laceration Repair Body area: upper extremity Location details: right small finger Laceration length: 0.5 cm Foreign bodies: no foreign bodies Tendon involvement: none Nerve involvement: none Vascular damage: no Preparation: Patient was prepped and draped in the usual sterile fashion. Irrigation solution: Soap and water. Amount of cleaning: standard Debridement: none Degree of undermining: none Skin closure: 4-0 Prolene Number of sutures: 3 Approximation: close Approximation difficulty: simple Patient tolerance: patient tolerated the procedure well with no immediate complications Comments: Patient had full sensation of all digits and full range of motion of all digits of right hand. Postprocedure I ever taped the 4th and 5th digits. SIGN OUT No specimen collected. Medications: 20 mg lidocaine 20 mg/mL (2 %) [facility] 12-31-2024 Note HNO ID: [id number] Author: NIKO CELESTIN APRN.[employer] Service: ? Author Type: Nurse Practitioner Type: Progress Notes Filed: 12/31/2024 20:11 Note Text: This note was created using [id number]. Subjective Roberta Callaway is a 54 year old female. HPI Just prior to arrival patient was washing dishes when she put her right hand into a glass jar with an uneven lip lacerating the webbing of the skin between the 4th and 5th digits. She denies any other injuries or health concerns. Tetanus shot is approximately 6 years old. Review of Systems As above Objective BP 138/84 Pulse 87 Temp 37.1 ?C (98.8 ?F) Resp 18 Wt 109.2 kg (240 lb 11.9 oz) LMP 10/15/2010 SpO2 98% Physical Exam Vitals and nursing note reviewed. Constitutional: General: She is not in acute distress. Appearance: Normal appearance. She is not ill-appearing. HENT: Head: Normocephalic. Pulmonary: Effort: Pulmonary effort is normal. Musculoskeletal: General: Normal range of motion. Comments: Patient has full strength with all movements of digits of right hand. Skin: General: Skin is warm. Neurological: General: No focal deficit present. Mental Status: She is alert and oriented to person, place, and time. Psychiatric: Mood and Affect: Mood normal. Behavior: Behavior normal. Laceration Procedure: right small finger Date/Time: 12/31/2024 8:08 PM Performed by: Niko Celestin APRN.[employer] Authorized by: Niko Celestin APRN.[employer] Informed Consent Consent Obtained: Verbal [place] Protocol SIGN IN Special Equipment: N/A Patient/Surrogate Stated/Verified: Patient name and Date of TIME OUT Laceration Repair Body area: upper extremity Location details: right small finger Laceration length: 0.5 cm Foreign bodies: no foreign bodies Tendon involvement: none Nerve involvement: none Vascular damage: no Preparation: Patient was prepped and draped in the usual sterile fashion. Irrigation solution: Soap and water. Amount of cleaning: standard Debridement: none Degree of undermining: none Skin closure: 4-0 Prolene Number of sutures: 3 Approximation: close Approximation difficulty: simple Patient tolerance: patient tolerated the procedure well with no immediate complications Comments: Patient had full sensation of all digits and full range of motion of all digits of right hand. Postprocedure I ever taped the 4th and 5th digits. SIGN OUT No specimen collected. Medications: 20 mg lidocaine 20 mg/mL (2 %) Assessment and Plan ASSESSMENT/PLAN: 1. Laceration of right hand without foreign body, initial encounter - ICD9: 882.0, ICD10: S61.411A Small laceration was sutured as noted in procedure note above. No obvious foreign body noted and no sign of tendon or ligament injury. Patient was instructed to have sutures removed in approximately 14 days. She is to keep the wound clean and dry other than wash gently with soap and water and to the wound has healed. She is to follow-up with PCP in 3-4 days for evaluation of the wound. Niko Celestin APRN.[facility] 12-31-2024 History of Present illness Narrative Associated Order(s): Laceration Procedure: right small finger Post-Procedure Diagnose(s): Laceration of right hand without foreign body, initial encounter This note was created using [employer]. Subjective Roberta Callaway is a 54 year old female. HPI Just prior to arrival patient was washing dishes when she put her right hand into a glass jar with an uneven lip lacerating the webbing of the skin between the 4th and 5th digits. She denies any other injuries or health concerns. Tetanus shot is approximately 6 years old. Review of Systems As above Objective BP 138/84 Pulse 87 Temp 37.1 C (98.8 F) Resp 18 Wt 109.2 kg (240 lb 11.9 oz) LMP 10/15/2010 SpO2 98% Physical Exam Vitals and nursing note reviewed. Constitutional: General: She is not in acute distress. Appearance: Normal appearance. She is not ill-appearing. HENT: Head: Normocephalic. Pulmonary: Effort: Pulmonary effort is normal. Musculoskeletal: General: Normal range of motion. Comments: Patient has full strength with all movements of digits of right hand. Skin: General: Skin is warm. Neurological: General: No focal deficit present. Mental Status: She is alert and oriented to person, place, and time. Psychiatric: Mood and Affect: Mood normal. Behavior: Behavior normal. Laceration Procedure: right small finger Date/Time: 12/31/2024 8:08 PM Performed by: Niko Celestin APRN.[employer] Authorized by: Niko Celesitn APRN.CNP Informed Consent Consent Obtained: Verbal [place] Protocol SIGN IN Special Equipment: N/A Patient/Surrogate Stated/Verified: Patient name and Date of TIME OUT Laceration Repair Body area: upper extremity Location details: right small finger Laceration length: 0.5 cm Foreign bodies: no foreign bodies Tendon involvement: none Nerve involvement: none Vascular damage: no Preparation: Patient was prepped and draped in the usual sterile fashion. Irrigation solution: Soap and water. Amount of cleaning: standard Debridement: none Degree of undermining: none Skin closure: 4-0 Prolene Number of sutures: 3 Approximation: close Approximation difficulty: simple Patient tolerance: patient tolerated the procedure well with no immediate complications Comments: Patient had full sensation of all digits and full range of motion of all digits of right hand. Postprocedure I ever taped the 4th and 5th digits. SIGN OUT No specimen collected. Medications: 20 mg lidocaine 20 mg/mL (2 %) Assessment and Plan ASSESSMENT/PLAN: 1. Laceration of right hand without foreign body, initial encounter - ICD9: 882.0, ICD10: S61.411A Small laceration was sutured as noted in procedure note above. No obvious foreign body noted and no sign of tendon or ligament injury. Patient was instructed to have sutures removed in approximately 14 days. She is to keep the wound clean and dry other than wash gently with soap and water and to the wound has healed. She is to follow-up with PCP in 3-4 days for evaluation of the wound. Niko Celestin APRN.PADMINI documented in this encounter [facility] 11-09-2024 Evaluation note Diagnosis Onset Date Resolution Left shoulder pain acute November 09, 2024 8:55am [facility] Work Phone: [phone] Radiology Diagnostic study note [facility] Imaging Services [address] [place] [address] Elbow min 3 Views MR#: [id number] Acct: [id number] Name: ROBERTA CALLAWAY Rep #: [id number] : 1970 F 54 From: Salty Melchor MD PCP: Dr. Beny Kerr MD Status: REG C TRISTAN Study:Elbow min 3 Views Date of Exam: Exam# [id number] Ordering Dr: Beny Kerr MD PROCEDURE: ELBOW MIN 3 VIEWS REASON FOR EXAM: Left elbow pain. TECHNIQUE: Three-view left elbow series COMPARISON: None. RAD/Elbow min 3 Views IMPRESSION: No left elbow joint effusion is seen. No erosive process is seen. Minimal degenerative changes are seen at the humeroulnar articulation, without significant associated joint space narrowing. Satisfactory alignment is seen. No fracture or dislocation is evident. Reading Location: [address] CC: Dr. Beny Kerr MD ~ Supervisor Sterile Processing: Signed [facility]05-31-2023 Procedure [facility] 01-13-2023 Hospital Discharge instructions Patient Education 01/13/2023 18:54:13 Hypertension, To Be Confirmed High Blood Pressure, To Be Confirmed, No Treatment Your blood pressure today was higher than normal. Sometimes anxiety or pain can cause a temporary rise in blood pressure. It later returns to normal. Blood pressure that is high only one time doesn tmean that you have high blood pressure (hypertension). High blood pressure is a chronic illness. But you should have your blood pressure measured again within the next few days to find out if it s still high. Blood pressure measurements are given as 2 numbers. Systolic blood pressure is the upper number. This is the pressure when the heart contracts. Diastolic blood pressure is the lower number. This is the pressure when the heart relaxes between beats. You will see your blood pressure readings written together. For example, a person with a systolic pressure of 118 and a diastolic pressure of 78 will have 118/78 written in the medical record. Blood pressure is categorized as normal, elevated, or stage 1 or stage 2 high blood pressure: Normal blood pressure is systolic of less than 120 and diastolic of less than 80 (120/80) Elevated blood pressure is systolic of 120 to 129 and diastolic less than 80 Stage 1 high blood pressure is systolic is 130 to 139 or diastolic between 80 to 89 Stage 2 high blood pressure is when systolic is 140 or higher or the diastolic is 90 or higher Lifestyle changes such as weight loss, exercise, and quitting smoking, can help manage your blood pressure. Have your blood pressure checked regularly to be sure it is under control. Home care To track your blood pressure, your provider may ask you to come into the office at different times and on different days. If your healthcare provider asks you to check your readings at home, ask him or her what times of the day to test and for how many days. Before you leave the office, ask your provider to show you how to take your blood pressure and be sure to ask questions if you don't understand something. Consider buying an automatic blood pressure monitor. Ask your provider for a recommendation as wellas the proper size cuff to fit your arm. You can buy blood pressure monitors at most pharmacies. The [place] [employer] recommends the following guidelines for home blood pressure monitoring: Don't smoke or drink coffee or other caffeinated drinks for 30 minutes before taking your blood pressure. Go to the bathroom before the test. Relax for 5 minutes before taking the measurement. Sit with your back supported (don't sit on a couch or soft chair); keep your feet on the floor uncrossed. Place your arm on a solid flat surface (like a table) with the upper part of the arm at heartlevel. Place the middle of the cuff directly above the bend of the elbow. Check the monitor's instruction manual for an illustration. Take multiple readings. When you measure, take 2 to 3 readings one minute apart and record all of the results. Take your blood pressure at the same time every day, or as your healthcare provider recommends. Record the date, time, and blood pressure reading. Take the record with you to your next medical appointment. If your blood pressure monitor has a built-in memory, simply take the monitor with you to your next appointment. Call your provider if you have several high readings. Don't be frightened by a single high blood pressure reading, but if you get several high readings, check in with your healthcare provider. Note: When blood pressure reaches a systolic (top number) of 180 or higher OR diastolic (bottom number) of 110 or higher, seek emergency medical treatment. Follow-up care Keep all of your follow up appointments. If your blood pressure is more than 120 over 80 on 2 out of 3 days, you will need to follow up with your healthcare provider for more evaluation and treatment. Don t put this off! High blood pressure can be treated. High blood pressure that s not treated raises your risk for heart attack, heart failure, and stroke. When to seek medical advice Call your healthcare provider right away if any of these occur: Blood pressure reaches a systolic (top number) of 180 or higher, OR diastolic (bottom number) of 110 or higher Chest pain or shortness of breath Severe headache Throbbing or rushing sound in the ears Nosebleed Sudden severe pain in your belly (abdomen) Extreme drowsiness, confusion, or fainting Dizziness or dizziness with spinning sensation (vertigo) Weakness of an arm or leg or one side of the face You have problems speaking or seeing [id number] [employer]. [address] [place] [address]. All rights reserved. This information is not intended as a substitute for professional medical care. Always follow yourhealthcare professional's instructions. 01/13/2023 18:54:10 Fall, Mechanical Mechanical Fall You have had a fall today. It appears that the cause is what is called mechanical. That means that you slipped, tripped, or lost your balance. If your fall had been because of fainting or a seizure, you might need other tests. It is normal to feel sore and tight in your muscles and back the next day, and not just the musclesyou injured at first. Remember, all the parts of your body are connected, so while initially one area hurts, the next day another may hurt. Also, when you injure yourself, it causes inflammation, which then causes the muscles to tighten up and hurt more. After the initial worsening, it should gradually improve over the next few days. Do report more severe pain. Even without a definite head injury, you can still get a concussion from your head suddenly jerkingforward, backward, or sideways when falling. Concussions and even bleeding can still happen, especially if you have had a recent injury or take blood thinner medicine. It is not unusual to have a mild headache and feel tired and even nauseous or dizzy. Home care Rest today and go back to your normal activities when you are feeling back to normal. If you were injured during the fall, follow the advice from your healthcare provider regarding careof your injury. At first, do not try to stretch out the sore spots. If there is a strain, stretching may make it worse. Massage may help relax the muscles without stretching them. You can use an ice pack or cold compress on and off to the sore spots 10 to 20 minutes at a time, as often as you feel comfortable. This may help reduce the inflammation, swelling and pain. If you have any scrapes or abrasions, they usually heal within 10 days. It is important to keep theabrasions clean while they initially start to heal. However, an infection may happen even with proper care, so watch for early signs of infection (such as warmth, redness, or swelling). Medicines Talk to your healthcare provider before taking new medicines, especially if you have other medical problems or are taking other medicines. If you need anything for pain, you can take acetaminophen or ibuprofen, unless you were given a different pain medicine to use. Talk with your healthcare provider before using these medicines if you have chronic liver or kidney disease, or ever had a stomach ulcer or gastrointestinal bleeding, or are taking blood thinner medicines. Be careful if you are given prescription pain medicines, narcotics, or medicine for muscle spasm. They can make you sleepy and dizzy, and can affect your coordination, reflexes, and judgment. Do not drive or do work where you can injure yourself when taking them. Fall prevention Fix, remove, or replace anything that caused your fall. Make your home safe by keeping walkways clear of objects you may trip over. Use nonslip pads under rugs. Don't use small area rugs or throw rugs. Don't walk in poorly lit areas. Don't stand on chairs or wobbly ladders. Use caution when reaching overhead or looking upward. This position can cause a loss of balance. Be sure your shoes fit properly, have nonslip bottoms and are in good condition. Be cautious when going up and down curbs, and walking on uneven sidewalks. If your balance is poor, consider using a cane or walker. Stay as active as you can. Balance, flexibility, strength, and endurance all come from exercise. They all play a role in preventing falls. If you have pets, know where they are before you stand up or walk so you don't trip over them. Limit alcohol intake. Alcohol can cause balance problems and increase the risk of falls. Use night lights. Have your eyes tested to be sure you are seeing well, even if you already wear glasses. Follow-up Follow up with your healthcare provider, or as advised. If X-rays or CT scans were done, you will be notified if there is a change in the reading, especially if it affects treatment. Call 911 Call 911 if any of these happen: Trouble breathing Confused or difficulty arousing Fainting or loss of consciousness Rapid or very slow heart rate Seizure Difficulty with speech or vision, weakness of an arm or leg Difficulty walking or talking, loss of balance, numbness or weakness in one side of your body, or facial droop When to seek medical advice Call your healthcare provider right away if any of these happen: Repeated mechanical falls, or unexplained falls Dizziness Severe headache Blood in vomit, stools (black or red color) [id number] [employer]. [address] [place] [address]. All rights reserved. This information is not intended as a substitute for professional medical care. Always follow yourhealthcare professional's instructions. 01/13/2023 18:54:06 Wrist Sprain Wrist Sprain A sprain is an injury to the ligaments or capsule that holds a joint together. There are no broken bones. Most sprains take about 3 to 6 weeks to heal. If it a severe sprain where the ligament is completely torn, it can take months to recover. Most wrist sprains are treated with a splint, wrist brace, or elastic wrap for support. Severe sprains may require surgery. Home care Keep your arm elevated to reduce pain and swelling. This is very important during the first 48 hours. Apply an ice pack over the injured area for 15 to 20 minutes every 3 to 6 hours. You should do thisfor the first 24 to 48 hours. You can make an ice pack by filling a plastic bag that seals at the top with ice cubes and then wrapping it with a thin towel. Continue to use ice packs for relief of pain and swelling as needed. As the ice melts, be careful to avoid getting your wrap, splint, or cast wet. After 48 hours, apply heat (warm shower or warm bath) for 15 to 20 minutes several times a day,or alternate ice and heat. You may use [id number] pain medicine to control pain, unless another pain medicine was prescribed. If you have chronic liver or kidney disease or ever had a stomach ulcer or gastrointestinal bleeding, talk with your doctor before using these medicines. If you were given a splint or brace, wear it for the time advised by your doctor. Follow-up care Follow up with your healthcare provider, or as advised. Any X-rays you had today don t show any broken bones, breaks, or fractures. Sometimes fractures don t show up on the first X-ray. Bruises and sprains can sometimes hurt as much as a fracture. These injuries can take time to heal completely. Ifyour symptoms don t improve or they get worse, talk with your doctor. You may need a repeat X-ray. If X-rays were taken, you will be told of any new findings that may affect your care. When to seek medical advice Call your healthcare provider right away if any of these occur: Pain or swelling increases Fingers or hand becomes cold, blue, numb, or tingly [id number] [employer]. [address] [place] [address], [place] [address]. All rights reserved. This information is not intended as a substitute for professional medical care. Always follow yourhealthcare professional's instructions. 01/13/2023 18:54:03 Elbow Fracture Elbow Fracture You have a break (fracture) of one or more bones of your elbow joint. This may be a small crack in the bone. Or it may be a major break, with the broken parts pushed out of position. This fracture usually takes 4 to 12 weeks to heal, depending on the type. The first step in treatment is with a splint or cast. Severe fractures may need surgery to put the bone fragments back into place. Home care Follow these guidelines when caring for yourself at home: Keep your arm elevated to reduce pain and swelling. When sitting or lying down keep your arm above the level of your heart. You can do this by placing your arm on a pillow that rests on your chest oron a pillow at your side. This is most important during the first 2 days (48 hours) after the injury. Put an ice pack on the injured area. Do this for 20 minutes every 1 to 2 hours the first day. You can make an ice pack by wrapping a plastic bag of ice cubes in a thin towel. As the ice melts, be careful that the cast or splint doesn t get wet. You can place the ice pack inside the sling and directly over the splint or cast. Continue to use the ice pack 3 to 4 times a day for the next 2 days. Then use the ice pack as needed to ease pain and swelling. Keep the splint or cast completely dry at all times. Bathe with your splint or cast out of the water. Protect it with a large plastic bag, rubber-banded at the top end. If a fiberglass splint or castgets wet, you can dry it with a hair tinter. You may use acetaminophen or ibuprofen to control pain, unless another pain medicine was prescribed. If you have chronic liver or kidney disease, talk with your healthcare provider before using thesemedicines. Also talk with your provider if you ve had a stomach ulcer or gastrointestinal bleeding. Don t put creams or objects under the cast if you have itching. Follow-up care Follow up with your healthcare provider in 1 week, or as advised. This is to make sure the bone is healing the way it should. If a splint was put on, it may be changed to a cast during your follow-upvisit. X-rays may be taken. You will be told of any new findings that may affect your care. When to seek medical advice Call your healthcare provider right away if any of these occur: The cast or splint cracks The plaster cast or splint becomes wet or soft The fiberglass cast or splint stays wet for more than 24 hours Tightness or pain under the cast or splint gets worse Bad odor from the cast or wound fluid stains the cast Fingers become swollen, cold, blue, numb, or tingly You can t move your fingers Skin around cast becomes red Fever of 100.4 F (38 C) or higher, or as directed by your healthcare provider [employer]. [address] [place], [place] [id number]. All rights reserved. This information is not intended as a substitute for professional medical care. Always follow yourhealthcare professional's instructions. 01/13/2023 18:54:01 Rib Contusion Rib Contusion A rib contusion is a bruise to one or more rib bones. It may cause pain, tenderness, swelling and apurplish discoloration. There may be a sharp pain while breathing. You will be assessed for other injuries. You will likely be given pain medicine. Rib contusions heal on their own, without further treatment. However, pain may take weeks to months to go away. Note that a small crack (fracture) in the rib may cause the same symptoms as a rib contusion. The small crack may not be seen on a chest X-ray. However, the conditions are managed in the same way. Home care Rest. Avoid heavy lifting, strenuous exertion, or any activity that causes pain. Ice the area to reduce pain and swelling. Put ice cubes in a plastic bag or use a cold pack. (Wrap the cold source in a thin towel. Do not place it directly on your skin.) Ice the injured area for 20minutes every 1 to 2 hours the first day. Continue with ice packs 3 to 4 times a day for the next 2days, then as needed for the relief of pain and swelling. Take any prescribed pain medicine as directed by your healthcare provider. If none was prescribed, take acetaminophen, ibuprofen, or naproxen to control pain. If you have a significant injury, you may be given a device called an incentive spirometer to keep your lungs healthy. Use as directed. Follow-up care Follow up with your healthcare provider during the next week or as directed. When to seek medical advice Call your healthcare provider for any of the following: Shortness of breath or trouble breathing Increasing chest pain with breathing Coughing Dizziness, weakness, or fainting New or worsening pain Fever of 100.4 F (38 C) or higher, or as directed by your healthcare provider [employer]. [address] [place] [address]. All rights reserved. This information is not intended as a substitute for professional medical care. Always follow yourhealthcare professional's instructions. Follow Up Care 01/13/2023 16:52:35 With:DORON KERR Address: [facility] [facility] [address] [place] [address]- Business (1) When:2-4 days Comments:Schedule appointment as soon as possibleFollow up for blood pressure. Spirometer 10 puffs/hr while awake With:your ortho Address:Unknown When:2-4 days Comments:Follow-up as scheduled [facility] 05-28-2023 Note Discharge Instructions Thank you for allowing [facility] to assist you with your healthcare needs. The following is importantdischarge information regarding your hospital visit. Diagnosis from Today's Visit Contusion of rib Elbow fracture Wrist sprain Arm/wrist pain-swelling What to Do Next Instructions from Your Care Team Discharge Home Equipment - Ordered -- Sling and Swathe Left, 99 month(s), 01/13/23 18:36:00 EDT Post Acute Orders No qualifying data available. You Need to Schedule the Following Appointments Follow Up with DORON KERR When Within 2-4 days Why: Schedule appointment as soon as possible Follow up for blood pressure. Spirometer 10 puffs/hr while awake Where: [facility] [address] [place] [address]- [facility] (1) Follow Up with your ortho When Within 2-4 days Why: Follow-up as scheduled Allergies [facility] Medications Please ask your primary doctor or pharmacist before taking any other medication not listed, including over the counter drugs, herbal medications, vitamins and or supplements as they may interact withyour home medications. What How Much When Why Instructions Last Dose New oxyCODONE (oxyCODONE 5 mg oral tablet ( IMMEDIATErelease )) 1 tab(s) by mouth Every 6 hours Contusion of rib Elbow fracture Duration: 3 Days prn with food Printed Prescription Please take this list to your next doctor s visit. Bring all medications you take, including over the counter medications, herbals and other supplements with you to your doctor s visit. Patients and families are reminded to discard old lists and to update any records with all medication providers or retail pharmacies. Education Materials High Blood Pressure, To Be Confirmed, No Treatment Your blood pressure today was higher than normal. Sometimes anxiety or pain can cause a temporary rise in blood pressure. It later returns to normal. Blood pressure that is high only one time doesn tmean that you have high blood pressure (hypertension). High blood pressure is a chronic illness. But you should have your blood pressure measured again within the next few days to find out if it s still high. Blood pressure measurements are given as 2 numbers. Systolic blood pressure is the upper number. This is the pressure when the heart contracts. Diastolic blood pressure is the lower number. This is the pressure when the heart relaxes between beats. You will see your blood pressure readings written together. For example, a person with a systolic pressure of 118 and a diastolic pressure of 78 will have 118/78 written in the medical record. Blood pressure is categorized as normal, elevated, or stage 1 or stage 2 high blood pressure: Normal blood pressure is systolic of less than 120 and diastolic of less than 80 (120/80) Elevated blood pressure is systolic of 120 to 129 and diastolic less than 80 Stage 1 high blood pressure is systolic is 130 to 139 or diastolic between 80 to 89 Stage 2 high blood pressure is when systolic is 140 or higher or the diastolic is 90 or higher Lifestyle changes such as weight loss, exercise, and quitting smoking, can help manage your blood pressure. Have your blood pressure checked regularly to be sure it is under control. Home care To track your blood pressure, your provider may ask you to come into the office at different times and on different days. If your healthcare provider asks you to check your readings at home, ask him or her what times of the day to test and for how many days. Before you leave the office, ask your provider to show you how to take your blood pressure and be sure to ask questions if you don't understand something. Consider buying an automatic blood pressure monitor. Ask your provider for a recommendation as wellas the proper size cuff to fit your arm. You can buy blood pressure monitors at most pharmacies. The [place] [employer] recommends the following guidelines for home blood pressure monitoring: Don't smoke or drink coffee or other caffeinated drinks for 30 minutes before taking your blood pressure. Go to the bathroom before the test. Relax for 5 minutes before taking the measurement. Sit with your back supported (don't sit on a couch or soft chair); keep your feet on the floor uncrossed. Place your arm on a solid flat surface (like a table) with the upper part of the arm at heartlevel. Place the middle of the cuff directly above the bend of the elbow. Check the monitor's instruction manual for an illustration. Take multiple readings. When you measure, take 2 to 3 readings one minute apart and record all of the results. Take your blood pressure at the same time every day, or as your healthcare provider recommends. Record the date, time, and blood pressure reading. Take the record with you to your next medical appointment. If your blood pressure monitor has a built-in memory, simply take the monitor with you to your next appointment. Call your provider if you have several high readings. Don't be frightened by a single high blood pressure reading, but if you get several high readings, check in with your healthcare provider. Note: When blood pressure reaches a systolic (top number) of 180 or higher OR diastolic (bottom number) of 110 or higher, seek emergency medical treatment. Follow-up care Keep all of your follow up appointments. If your blood pressure is more than 120 over 80 on 2 out of 3 days, you will need to follow up with your healthcare provider for more evaluation and treatment. Don t put this off! High blood pressure can be treated. High blood pressure that s not treated raises your risk for heart attack, heart failure, and stroke. When to seek medical advice Call your healthcare provider right away if any of these occur: Blood pressure reaches a systolic (top number) of 180 or higher, OR diastolic (bottom number) of 110 or higher Chest pain or shortness of breath Severe headache Throbbing or rushing sound in the ears Nosebleed Sudden severe pain in your belly (abdomen) Extreme drowsiness, confusion, or fainting Dizziness or dizziness with spinning sensation (vertigo) Weakness of an arm or leg or one side of the face You have problems speaking or seeing [id number] [employer]. [address] [place] [address], [place] [address]. All rights reserved. This information is not intended as a substitute for professional medical care. Always follow yourhealthcare professional's instructions. Mechanical Fall You have had a fall today. It appears that the cause is what is called mechanical. That means that you slipped, tripped, or lost your balance. If your fall had been because of fainting or a seizure, you might need other tests. It is normal to feel sore and tight in your muscles and back the next day, and not just the musclesyou injured at first. Remember, all the parts of your body are connected, so while initially one area hurts, the next day another may hurt. Also, when you injure yourself, it causes inflammation, which then causes the muscles to tighten up and hurt more. After the initial worsening, it should gradually improve over the next few days. Do report more severe pain. Even without a definite head injury, you can still get a concussion from your head suddenly jerkingforward, backward, or sideways when falling. Concussions and even bleeding can still happen, especially if you have had a recent injury or take blood thinner medicine. It is not unusual to have a mild headache and feel tired and even nauseous or dizzy. Home care Rest today and go back to your normal activities when you are feeling back to normal. If you were injured during the fall, follow the advice from your healthcare provider regarding careof your injury. At first, do not try to stretch out the sore spots. If there is a strain, stretching may make it worse. Massage may help relax the muscles without stretching them. You can use an ice pack or cold compress on and off to the sore spots 10 to 20 minutes at a time, as often as you feel comfortable. This may help reduce the inflammation, swelling and pain. If you have any scrapes or abrasions, they usually heal within 10 days. It is important to keep theabrasions clean while they initially start to heal. However, an infection may happen even with proper care, so watch for early signs of infection (such as warmth, redness, or swelling). Medicines Talk to your healthcare provider before taking new medicines, especially if you have other medical problems or are taking other medicines. If you need anything for pain, you can take acetaminophen or ibuprofen, unless you were given a different pain medicine to use. Talk with your healthcare provider before using these medicines if you have chronic liver or kidney disease, or ever had a stomach ulcer or gastrointestinal bleeding, or are taking blood thinner medicines. Be careful if you are given prescription pain medicines, narcotics, or medicine for muscle spasm. They can make you sleepy and dizzy, and can affect your coordination, reflexes, and judgment. Do not drive or do work where you can injure yourself when taking them. Fall prevention Fix, remove, or replace anything that caused your fall. Make your home safe by keeping walkways clear of objects you may trip over. Use nonslip pads under rugs. Don't use small area rugs or throw rugs. Don't walk in poorly lit areas. Don't stand on chairs or wobbly ladders. Use caution when reaching overhead or looking upward. This position can cause a loss of balance. Be sure your shoes fit properly, have nonslip bottoms and are in good condition. Be cautious when going up and down curbs, and walking on uneven sidewalks. If your balance is poor, consider using a cane or walker. Stay as active as you can. Balance, flexibility, strength, and endurance all come from exercise. They all play a role in preventing falls. If you have pets, know where they are before you stand up or walk so you don't trip over them. Limit alcohol intake. Alcohol can cause balance problems and increase the risk of falls. Use night lights. Have your eyes tested to be sure you are seeing well, even if you already wear glasses. Follow-up Follow up with your healthcare provider, or as advised. If X-rays or CT scans were done, you will be notified if there is a change in the reading, especially if it affects treatment. Call 911 Call 911 if any of these happen: Trouble breathing Confused or difficulty arousing Fainting or loss of consciousness Rapid or very slow heart rate Seizure Difficulty with speech or vision, weakness of an arm or leg Difficulty walking or talking, loss of balance, numbness or weakness in one side of your body, or facial droop When to seek medical advice Call your healthcare provider right away if any of these happen: Repeated mechanical falls, or unexplained falls Dizziness Severe headache Blood in vomit, stools (black or red color) [id number] [employer]. [address] [place] [address], [place] [address]. All rights reserved. This information is not intended as a substitute for professional medical care. Always follow yourhealthcare professional's instructions. Wrist Sprain A sprain is an injury to the ligaments or capsule that holds a joint together. There are no broken bones. Most sprains take about 3 to 6 weeks to heal. If it a severe sprain where the ligament is completely torn, it can take months to recover. Most wrist sprains are treated with a splint, wrist brace, or elastic wrap for support. Severe sprains may require surgery. Home care Keep your arm elevated to reduce pain and swelling. This is very important during the first 48 hours. Apply an ice pack over the injured area for 15 to 20 minutes every 3 to 6 hours. You should do thisfor the first 24 to 48 hours. You can make an ice pack by filling a plastic bag that seals at the top with ice cubes and then wrapping it with a thin towel. Continue to use ice packs for relief of pain and swelling as needed. As the ice melts, be careful to avoid getting your wrap, splint, or cast wet. After 48 hours, apply heat (warm shower or warm bath) for 15 to 20 minutes several times a day,or alternate ice and heat. You may use [id number] pain medicine to control pain, unless another pain medicine was prescribed. If you have chronic liver or kidney disease or ever had a stomach ulcer or gastrointestinal bleeding, talk with your doctor before using these medicines. If you were given a splint or brace, wear it for the time advised by your doctor. Follow-up care Follow up with your healthcare provider, or as advised. Any X-rays you had today don t show any broken bones, breaks, or fractures. Sometimes fractures don t show up on the first X-ray. Bruises and sprains can sometimes hurt as much as a fracture. These injuries can take time to heal completely. Ifyour symptoms don t improve or they get worse, talk with your doctor. You may need a repeat X-ray. If X-rays were taken, you will be told of any new findings that may affect your care. When to seek medical advice Call your healthcare provider right away if any of these occur: Pain or swelling increases Fingers or hand becomes cold, blue, numb, or tingly [id number] [employer]. [address] [place] [address], [place] [address]. All rights reserved. This information is not intended as a substitute for professional medical care. Always follow yourhealthcare professional's instructions. Elbow Fracture You have a break (fracture) of one or more bones of your elbow joint. This may be a small crack in the bone. Or it may be a major break, with the broken parts pushed out of position. This fracture usually takes 4 to 12 weeks to heal, depending on the type. The first step in treatment is with a splint or cast. Severe fractures may need surgery to put the bone fragments back into place. Home care Follow these guidelines when caring for yourself at home: Keep your arm elevated to reduce pain and swelling. When sitting or lying down keep your arm above the level of your heart. You can do this by placing your arm on a pillow that rests on your chest oron a pillow at your side. This is most important during the first 2 days (48 hours) after the injury. Put an ice pack on the injured area. Do this for 20 minutes every 1 to 2 hours the first day. You can make an ice pack by wrapping a plastic bag of ice cubes in a thin towel. As the ice melts, be careful that the cast or splint doesn t get wet. You can place the ice pack inside the sling and directly over the splint or cast. Continue to use the ice pack 3 to 4 times a day for the next 2 days. Then use the ice pack as needed to ease pain and swelling. Keep the splint or cast completely dry at all times. Bathe with your splint or cast out of the water. Protect it with a large plastic bag, rubber-banded at the top end. If a fiberglass splint or castgets wet, you can dry it with a hair tinter. You may use acetaminophen or ibuprofen to control pain, unless another pain medicine was prescribed. If you have chronic liver or kidney disease, talk with your healthcare provider before using thesemedicines. Also talk with your provider if you ve had a stomach ulcer or gastrointestinal bleeding. Don t put creams or objects under the cast if you have itching. Follow-up care Follow up with your healthcare provider in 1 week, or as advised. This is to make sure the bone is healing the way it should. If a splint was put on, it may be changed to a cast during your follow-upvisit. X-rays may be taken. You will be told of any new findings that may affect your care. When to seek medical advice Call your healthcare provider right away if any of these occur: The cast or splint cracks The plaster cast or splint becomes wet or soft The fiberglass cast or splint stays wet for more than 24 hours Tightness or pain under the cast or splint gets worse Bad odor from the cast or wound fluid stains the cast Fingers become swollen, cold, blue, numb, or tingly You can t move your fingers Skin around cast becomes red Fever of 100.4 F (38 C) or higher, or as directed by your healthcare provider [employer]. [address] [place] [address], [place] [address]. All rights reserved. This information is not intended as a substitute for professional medical care. Always follow yourhealthcare professional's instructions. Rib Contusion A rib contusion is a bruise to one or more rib bones. It may cause pain, tenderness, swelling and apurplish discoloration. There may be a sharp pain while breathing. You will be assessed for other injuries. You will likely be given pain medicine. Rib contusions heal on their own, without further treatment. However, pain may take weeks to months to go away. Note that a small crack (fracture) in the rib may cause the same symptoms as a rib contusion. The small crack may not be seen on a chest X-ray. However, the conditions are managed in the same way. Home care Rest. Avoid heavy lifting, strenuous exertion, or any activity that causes pain. Ice the area to reduce pain and swelling. Put ice cubes in a plastic bag or use a cold pack. (Wrap the cold source in a thin towel. Do not place it directly on your skin.) Ice the injured area for 20minutes every 1 to 2 hours the first day. Continue with ice packs 3 to 4 times a day for the next 2days, then as needed for the relief of pain and swelling. Take any prescribed pain medicine as directed by your healthcare provider. If none was prescribed, take acetaminophen, ibuprofen, or naproxen to control pain. If you have a significant injury, you may be given a device called an incentive spirometer to keep your lungs healthy. Use as directed. Follow-up care Follow up with your healthcare provider during the next week or as directed. When to seek medical advice Call your healthcare provider for any of the following: Shortness of breath or trouble breathing Increasing chest pain with breathing Coughing Dizziness, weakness, or fainting New or worsening pain Fever of 100.4 F (38 C) or higher, or as directed by your healthcare provider [id number] [employer]. [address] [place] [address], [place] [address]. All rights reserved. This information is not intended as a substitute for professional medical care. Always follow yourhealthcare professional's instructions. Additional Information VACCINATE! IT SAVES LIVES! Members of the community who have not yet received the COVID-19 vaccine and would like to receive it can visit one of [facility] vaccine clinics. There are many vaccine clinic locations within the [facility]. For locations and available times, please visit www.gettheshot.coronavirus.[place].gov/. It is important to note that some COVID mobile vaccine clinics are held outdoors and may be canceled in rainy or stormy conditions. To learn more about pediatric vaccinations (ages 5-11), we invite you to visit the [facility] webpage. https://www.[facility].org/pages/6348-Ohgex-Txmszrejedd-Fmwfqhshuo-Vvxaq-Tfo stions.htmlTo learn more about the COVID-19 vaccine, we invite you to visit the CDC website for a list of frequently asked questions. https://www.cdc.gov/coronavirus/2019-ncov/vaccines/faq.html [employer] Patient Portal Access Instructions: Stay connected with your healthcare team and access your personal medical information anytime with the [facility] Patient Portal. If you would like a full copy of your medical records please contact the [facility] Medical Records Department Saturday through Saturday between 8a.m. and 4:30p.m. Please follow the directions below to access the portal: 1.Access the email account you provided upon registration to the hospital.2.Look for an invitation email from [facility].3.Open the email and access the invitation link: Accept Invitation to [facility].Fill in the required callejas to create your account. Sign into www.[employer] with your username and password that you created in the above steps to stay up to date. You can then view a summary of results, a summary of your visits, and the ability to download your summaries to your computer or send the information securely to a physician. Remember that your healthcare information is confidential, so carefully consider who you will allow to register on the [facility] [facility] Patient Portal for access to your information. You can also access the [facility] Patient Portal on the [employer]. Simply click on Health Records under [employer] and then click on the [employer] logo. HOW TO SAFELY DISPOSE OF PRESCRIPTION MEDICATIONS Please use one of the following methods to safely dispose of your unused medications. 1.Use a drug disposal kit: the drug disposal pouch allows you to safely discard your old and unuseddrugs. Ask your nurse to give you one when you are discharged.2.Visit a local take-back location: Many local pharmacies and police departments have programs that collect old and unwanted prescriptiondrugs. Call your local pharmacy or go to http://[employer].dBMEDx/9R8Fx6s to find one close to you.3.Make use of household items: Use cat litter or old coffee grounds to dispose medications if other options arenot available. Mix your drugs with these household products, seal them in an airtight container andthrow it into the garbage. Call [facility]: [phone] to be sure your drugs can be disposed of in this way. Some medicines may require a different approach.4.Never flush your medications down the toilet. IF YOU HAVE BEEN PRESCRIBED AN OPIOIDS FOR PAIN If you have been prescribed an opioid (such as hydrocodone, oxycodone or morphine), it is critical to understand the possible side effects and risks of opioid pain medications. Even when taken as directed, opioids can have several side effects including: Tolerance, meaning you might need to take more of a medication for the same pain relief. Nausea, vomiting and/or constipation. Sleepiness, dizziness, dry mouth, confusion, depression or itching. Physical dependence, meaning you have withdrawal symptoms when a medication is stopped ? this can develop within a few days. KNOW YOUR RESPONSIBILITIES It is important to know exactly how much and how often to take the opioid pain medications you are prescribed. Never take opioids in higher amounts or more often than prescribed. Do not combine opioids with alcohol or other drugs that cause drowsiness, such as benzodiazepines, also known as benzos,including diazepam and alprazolam, muscle relaxants or sleep aids. Never sell or share prescriptionopioids. This is illegal. Store opioids in a secure place and out of reach of others (including children, family, friends and visitors). The last page(s) of this document has been signed and retained as a CHART COPY Signatures Patient Education Materials Hypertension, To Be Confirmed Fall, Mechanical Wrist Sprain Elbow Fracture Rib Contusion Medication Leaflets My discharge plan and instructions have been reviewed and explained to me and I,ROBERTA CACERES understand my current condition and have read and understand these discharge instructions. I have received a written copy of the plan/instructions. If I have questions, I am aware that I should contact my d octor. 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 HISTORY: ORDERING SYSTEM PROVIDED HISTORY: Reason for Exam: pain FINDINGS: The cardiomediastinal silhouette is unremarkable. There is no pulmonary vascular congestion. There is no focal consolidation. No pleural effusion. No pneumothorax. Degenerative changes of the spine. IMPRESSION: No focal consolidation or edema. I have personally reviewed the images of this examination and agree with the resident's findings and interpretation. Interpreted by: Jean Paul Tsang Preliminary Report By: Sherwin Corral Electronically signed By Jean Paul Tsang Dictated Date: 01/13/2023 6:14:42 PM Prelim Date: 01/13/2023 6:16:42 PM Sign Date: 01/13/2023 6:17:54 PM Ordering Provider: ANN MOHR [facility]05-28-2023 Note ORIGINAL EXAMINATION: 6 XRAY VIEWS OF THE left upper EXTREMITY 01/13/2023 6:13 pm COMPARISON: None. HISTORY: ORDERING SYSTEM PROVIDED HISTORY: Reason for Exam: pain FINDINGS: No acute fracture or dislocation. No acute osseous abnormality. There are scattered degenerative changes, mild. No unexpected radiopaque foreign bodies other than the patient's ring on the 4th digit. IMPRESSION: No acute fracture or dislocation. Interpreted by: Yuni Saldivar MD Preliminary Report By: Yuni Saldivar MD Electronically signed By Yuni Saldivar MD Dictated Date: 01/13/2023 6:15:40 PM Prelim Date: 01/13/2023 6:17:37 PM Sign Date: 01/13/2023 6:17:37 PM Ordering Provider: [facility]05-28-2023 Note ORIGINAL EXAMINATION: 3 XRAY VIEWS OF THE LEFT SHOULDER 01/13/2023 6:12 pm COMPARISON: None. HISTORY: ORDERING SYSTEM PROVIDED HISTORY: Reason for Exam: pain FINDINGS: No fracture or dislocation. IMPRESSION: No fracture or dislocation. Interpreted by: Jean Paul Tsang Preliminary Report By: Jean Paul Tsang Electronically signed By Jean Paul Tsang Dictated Date: 01/13/2023 6:14:46 PM Prelim Date: 01/13/2023 6:15:38 PM Sign Date: 01/13/2023 6:15:38 PM Ordering Provider: [facility]05-28-2023 Note ORIGINAL EXAMINATION: THREE XRAY VIEWS OF THE LEFT ELBOW 01/13/2023 6:11 pm COMPARISON: None. HISTORY: ORDERING SYSTEM PROVIDED HISTORY: Reason for Exam: pain FINDINGS: Minimally displaced fracture of the radial neck head junction. No dislocation. IMPRESSION: Minimally displaced fracture of the radial neck head junction. Interpreted by: Jean Paul Tsang Preliminary Report By: Jean Paul Tsang Electronically signed By Jean Paul Tsang Dictated Date: 01/13/2023 6:12:53 PM Prelim Date: 01/13/2023 6:14:35 PM Sign Date: 01/13/2023 6:14:35 PM Ordering Provider: [address]28-2023 Note ORIGINAL EXAMINATION: 6 XRAY VIEWS OF THE left upper EXTREMITY 01/13/2023 6:13 pm COMPARISON: None. HISTORY: ORDERING SYSTEM PROVIDED HISTORY: Reason for Exam: pain FINDINGS: No acute fracture or dislocation. No acute osseous abnormality. There are scattered degenerative changes, mild. No unexpected radiopaque foreign bodies other than the patient's ring on the 4th digit. IMPRESSION: No acute fracture or dislocation. Interpreted by: Yuni Saldivar MD Preliminary Report By: Yuni Saldivar MD Electronically signed By Yuni Saldivar MD Dictated Date: 01/13/2023 6:15:40 PM Prelim Date: 01/13/2023 6:17:37 PM Sign Date: 01/13/2023 6:17:37 PM Ordering Provider: [address]28-2023 Note ORIGINAL EXAMINATION: 2 XRAY VIEWS OF THE RIGHT RIBS 01/13/2023 6:10 pm COMPARISON: None. HISTORY: ORDERING SYSTEM PROVIDED HISTORY: Reason for Exam: pain FINDINGS: No visible rib fracture. IMPRESSION: No visible rib fracture. Interpreted by: Jean Paul Tsang Preliminary Report By: Jean Paul Tsang Electronically signed By Jean Paul Tsang Dictated Date: 01/13/2023 6:11:28 PM Prelim Date: 01/13/2023 6:12:45 PM Sign Date: 01/13/2023 6:12:45 PM Ordering Provider: [address]28-2023 Note ORIGINAL EXAMINATION: 3 XRAY VIEWS OF THE LEFT SHOULDER 01/13/2023 6:12 pm COMPARISON: None. HISTORY: ORDERING SYSTEM PROVIDED HISTORY: Reason for Exam: pain FINDINGS: No fracture or dislocation. IMPRESSION: No fracture or dislocation. Interpreted by: Jean Paul Tsang Preliminary Report By: Jean Paul Tsang Electronically signed By Jean Paul Tsang Dictated Date: 01/13/2023 6:14:46 PM Prelim Date: 01/13/2023 6:15:38 PM Sign Date: 01/13/2023 6:15:38 PM Ordering Provider: [address]28-2023 Note ORIGINAL EXAMINATION: THREE XRAY VIEWS OF THE LEFT ELBOW 01/13/2023 6:11 pm COMPARISON: None. HISTORY: ORDERING SYSTEM PROVIDED HISTORY: Reason for Exam: pain FINDINGS: Minimally displaced fracture of the radial neck head junction. No dislocation. IMPRESSION: Minimally displaced fracture of the radial neck head junction. Interpreted by: Jean Paul Tsang Preliminary Report By: Jean Paul Tsang Electronically signed By Jean Paul Tsang Dictated Date: 01/13/2023 6:12:53 PM Prelim Date: 01/13/2023 6:14:35 PM Sign Date: 01/13/2023 6:14:35 PM Ordering Provider: [facility]05-28-2023 Note ORIGINAL EXAMINATION: 2 XRAY VIEWS OF THE RIGHT RIBS 01/13/2023 6:10 pm COMPARISON: None. HISTORY: ORDERING SYSTEM PROVIDED HISTORY: Reason for Exam: pain FINDINGS: No visible rib fracture. IMPRESSION: No visible rib fracture. Interpreted by: Jean Paul Tsang Preliminary Report By: Jean Paul Tsang Electronically signed By Jean Paul Tsang Dictated Date: 01/13/2023 6:11:28 PM Prelim Date: 01/13/2023 6:12:45 PM Sign Date: 01/13/2023 6:12:45 PM Ordering Provider: [facility]05-28-2023 Note ORIGINAL EXAMINATION: TWO XRAY VIEWS OF THE CHEST01/13/2023 6:10 pm COMPARISON: None. HISTORY: ORDERING SYSTEM PROVIDED HISTORY: Reason for Exam: pain FINDINGS: The cardiomediastinal silhouette is unremarkable. There is no pulmonary vascular congestion. There is no focal consolidation. No pleural effusion. No pneumothorax. Degenerative changes of the spine. IMPRESSION: No focal consolidation or edema. I have personally reviewed the images of this examination and agree with the resident's findings and interpretation. Interpreted by: Jean Paul Tsang Preliminary Report By: Sherwin Corral Electronically signed By Jean Paul Tsang Dictated Date: 01/13/2023 6:14:42 PM Prelim Date: 01/13/2023 6:16:42 PM Sign Date: 01/13/2023 6:17:54 PM Ordering [facility]+Reason for visit Narrative* Chief Complaint COVID RETEST Reason for Visit COVID-19 [facility] Work Phone: Discharge summary Author Dr. Cruz [facility] January 16, 2023 12:57pm Note Date/Time January 16, 2023 12:56 pm [facility] Medical Records Department [facility] [place] [address] Instructions for Home/Discharge Instructions 01/16/23 1255 MR#: [id number] Acct: [id number] Name: ROBERTA CACERES Rep #:[id number] : 1970 52 From: Sarmad Cruz MD PCP: Dr. Beny Kerr MD Status:REG S DC Discharge Instructions Diet Discharge Diet: No restrictions Activity Lifting Restrictions: no heavy lifting or gripping, ROM of fingers as tolerated. Dressing / Incision Call your doctor if your incision/area has: Continuous Slow Oozing, Sudden Increased Bleeding, Increased Pain/ Swelling, Increased Redness, Foul Smelling Discharge and Swelling at the incision site Remove Dressing in: leave in place till F/U Follow Up Care Please Follow Up With: Sarmad Cruz MD When: 2 days Test Results: Test results from this visit will be discussed in further detail at your follow- up appointment, if applicable. Discharge Plan Admission Attending Provider: Sarmad Cruz Primary Care Provider: Beny Kerr Chi Discharge Orders/Prescriptions Prescriptions: New oxycodone-acetaminophen [Percocet] 5-325 mg tablet 1 tab PO Q6H MDD 6 PRN (Reason: pain) 4 Days Qty: 14 0RF No Action oxycodone 10 mg tablet PO doxepin 10 mg capsule 10 mg PO PRN PRN (Reason: Sleep) Label Comments: TAKE 1 CAPSULE ONCE DAILY AT BEDTIME citalopram [Celexa] 20 mg tablet 20 mg PO DAILY Label Comments: TAKE 1 TABLET ONCE DAILY FOR 30 DAYS lidocaine 5 % adhesive patch,medicated 1 patch transdermal DAILY Label Comments: Use 1 (ONE) Patch topically once per day for 30 days. Apply to right knee, on12HR, off 12HR ipratropium bromide 42 mcg (0.06 %) spray,non-aerosol 1 spray INTRANASAL DAILY Label Comments: Instill 1 spray into each nostril twice daily for 30 days. acetaminophen [Tylenol Arthritis] 650 mg Tablet Extended Release 650 mg PO Q12H vitamin B complex [B Complex] Capsule 1 cap PO DAILY meloxicam 15 mg tablet 15 mg PO DAILY Label Comments: TAKE 1 TABLET BY MOUTH DAILY Referrals / Follow Up: Sarmad Cruz MD [Med Staff - Active Staff] - Beny Kerr Chi, MD [Primary Care Provider] - Disposition Disposition (needs filled in before D/C Order can be placed): Home, Self Care 01/16/23 1257<Electronically signed by Sarmad Cruz MD>Sarmad Cruz MD CC: Dr. Beny Kerr MD ~ Signed [facility] Work Phone: Evaluation + Plan note No data available for this section [facility] Evaluation note* Diagnosis Onset Date Resolution Status COVID-19 acute [facility] Work Phone: Evaluation noteNo assessment information available [facility] Work Phone: Evaluation note* Diagnosis Onset Date Resolution Status Ganglion of flexor tendon sh eath of left index finger acute Bilateral primary osteoarthritis of knee noneactive [facility] Work Phone: Evaluation note* Diagnosis Onset Date Resolution Status Ganglion of flexor tendon sh eath of left index finger acute Bilateral primary osteoarthritis of knee noneactive Ganglion of flexor tendon sh eath of left index finger acute [facility] Work Phone: Evaluation note* Diagnosis Onset Date Resolution Status Ganglion of flexor tendon sh eath of left index finger acute Bilateral primary osteoarthritis of knee noneactive Ganglion of flexor tendon sh eath of left index finger acute Primary osteoarthritis of both knees acute Contusion of elbow, left acu te Fracture of radial neck, left, closed acute Left wrist sprain acute Ganglion of flexor tendon sh eath of left index finger acute [facility] Work Phone: Evaluation note* Diagnosis Onset Date Resolution Status Primary osteoarthritis of both knees acute Primary osteoarthritis of both knees acute Bilateral knee pain acute Primary osteoarthritis of both knees acute [facility] Work Phone: Evaluation note* Diagnosis Laceration of right hand without foreign body, initial encounter- Primary [facility] Petechial rash- Primary Spontaneous ecchymoses [facility] January 16, 2023 12:09pm Note Date/Time January 16, 2023 12:09 pm [facility] Medical Records Department [address] [place] [id number] History & Physical Exam 01/16/23 1207 MR#: [id number] Acct: [id number] Name: ROBERTA CACERES Rep #:[id number] : 1970 52 From: Sarmad Cruz MD PCP: Dr. Beny Kerr MD Status:REG S DC [address]: [address] HPI - General HPI Narrative ROBERTA CACERES, is a 52 F who presents left idex finger volar side at the MCP ganglion cyst excision. Patient wants to go ahead. They did have a recent change where they had a fall and a radial neck fracture so I will do some range of motion testing of the elbow when they are off to sleep today for the procedure but otherwise no changes to their health. Left hand marked at the cyst. Discussed the recovery associated with this keep this clean and dry gentle range of motion of the hand we will send in a short prescription for oralnarcotics as they do have recent fracture and on the received about 2 days pain control for that from the emergency department. Patient understands narcotic counseling done and no further questions or concerns. R#: [id number] Acct: [id number] Name:? ROBERTA CACERES Rep #: [id number] : 1970 ? ? Provider: Dr. Sarmad Cruz MD Age/Sex:? 52/F ? ? Location: [facility] Status: Signed Intake Vital Signs ? 08/12/2208:06 01/15/2307:49 Height 5 ft 3 in 5 ft 3 in Intake Visit Reasons:?left hand Is patient in pain?: Yes Allergies Seasonal Allergies: Uncoded Allergy (Verified 01/15/23 10:03) Other Medications citalopram 20 mg tablet (Celexa) 20 mg PO DAILY 03/08/21 [History Confirmed 01/15/23] doxepin 10 mg capsule 10 mg PO PRN PRN Sleep 03/08/21 [History Confirmed 01/15/23] ipratropium bromide 42 mcg (0.06 %) nasal spray 1 spray intranasal DAILY 03/08/21 [History Confirmed 01/15/23] lidocaine 5 % topical patch 1 patch transdermal DAILY 03/08/21 [History Confirmed 01/15/23] acetaminophen 650 mg tablet,extended release 650 mg PO Q12H 08/07/21 [History Confirmed 01/15/23] vitamin B complex 1 cap PO DAILY 08/07/21 [History Confirmed 01/15/23] meloxicam 15 mg tablet 15 mg PO DAILY 01/09/23 [History Confirmed 01/15/23] oxycodone 10 mg tablet tablet PO 01/15/23 [History Confirmed 01/15/23] [facility] Medical History?(Updated 01/15/23 @ 10:32 by Sarmad Cruz MD) Anxiety Arthritis COVID-19 Depression Fracture of radial neck, left, closed Ganglion of flexor tendon sheath of left index finger Gastric reflux Heel spur History of pain when walking History of steroid therapy Injury of back Kidney stones Leg cramps Nausea Non-smoker Plantar fasciitis Primary osteoarthritis of both knees Wears glasses Surgical History? History of appendectomy History of carpal tunnel release History of cholecystectomy History of tonsillectomy History of wisdom tooth extraction Hx of varicose vein ligation and stripping Family History? Mother Arthritis Social History? household members:? significant other Smoking Status:? Never smoker alcohol intake:? current what type of physical activity do you participate in:? walking HPI left hand Details: Parts of this documentation were recorded by a scribe, this documentation accurately reflects the service provided and the decisions made by me, Dr. He MD 01/15/23 0827. ROBERTA CACERES is a 52 year old F here today for? was pending glanglion cyst excision, apparently fell and fractured her left proximal radius over the weekend.? She had a fall onto the wrist over the weekend was seen in [facility].? Apparently has a proximal radius fracture some pain in the lateral aspect of the elbow as well as some pain in the distal third metacarpal phalangeal joint. Ortho Exam General General: Yes no acute distress Neurologic: Yes alert and Yes oriented x3 Psychologic: Yes reasonable and appropriate Left Wrist/Hand Left Wrist: Yes ROM-Extension 0-60 and Yes ROM-Flexion 0-80 Motor: EPL: 5, FDP-2: 5, 1st Dorsal Interosseous: 5 and APB: 5 Sensation: Radial: I, Ulnar: I and Median: I WRIST: Able to make a full fist but swelling over the third metacarpal phalangeal joints normal flexion and extension. Left Elbow Skin/Wound: Yes CDI, No eccymosis, No erythema and Yes Swelling Sensation: Radial: I, Ulnar: I and Median: I Motor: Elbow Extension: 4, Elbow Flexion: 4, EPL: 4, FDP-2: 4 and 1st Dorsal Interosseous: 4 ELBOW: Pain to the lateral side of the elbow closed injury. Supplemental Info Radiographs outside source reviewed from 01/13 left hand multiple views were obtained and there is no report I see no obvious fracture in the hand.? There torsten nondisplaced radial neck fracture at the left elbow elbow joint is congruent and the report again noted. Coding Level of Care Code Attention Risk Control Manager Diagnoses Contusion of elbow, left? S50.02XA Left wrist sprain? S63.502A Fracture of radial neck, left, closed? S52.132A Comment bill cpt non op mgt radial neck fracture Assessment and Plan Assessment and Plan (1) Contusion of elbow, left: ?Status:?Acute (2) Left wrist sprain: ?Status:?Acute ?Plan: 52 F she seems to have suffered a contusion to the metacarpal phalangeal joint third digit on the left side recommend nonoperative management rest ice anti- inflammatories and gentle range of motion for this avoiding heavy lifting or gripping for 2 weeks.? No obvious fracture is noted on the x-ray.? (3) Fracture of radial neck, left, closed: ?Status:?Acute ?Plan: 52-year-old female with a nondisplaced left radial neck fracture.? Generally these are recommended for nonoperative management with sling we have given the patient starting some gentle early elbow range of motion.? The patient has a surgery for small ganglion cyst excision tomorrow I offered the patient the option of delaying this but they would still like to go ahead.? At the same timeI will be able to assess the range of motion of the elbow to ensure that there is no blocks to motion.? Patient understood and wished to proceed with that and no further questions or concerns. [facility] Medical History (Updated 01/15/23 @ 10:32 by Sarmad Cruz MD) Anxiety Arthritis COVID-19 Depression Fracture of radial neck, left, closed Ganglion of flexor tendon sheath of left index finger Gastric reflux Heel spur History of pain when walking History of steroid therapy Injury of back Kidney stones Leg cramps Nausea Non-smoker Plantar fasciitis Primary osteoarthritis of both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
--- NOTE | 2025-02-10 14:49 | PCM.POSTANE2 ---
Anesthesia Postop Eval I Sum Postop Eval Completion status Anesthesia document: Postop Eval 1 completed: Yes Anesthesia Postop Eval I Summary Anesthesia Postop Eval I Summary: Anesthesia Postop Eval I: Assessment Summary Airway patent Yes 02/10/25 14:04 [email or web address] Spontaneous unlabored Yes 02/10/25 14:04 [email or web address] respirations Mental status Awake,Calm 02/10/25 14:04 [email or web address] nausea No 02/10/25 14:04 [email or web address] Vomiting No 02/10/25 14:04 [email or web address] Anesthesia Postop Eval I: Fluid Summary Crystalloid volume administer 1,600 02/10/25 14:04 [email or web address] (ml) Colloids volume administered ( ml) Blood Product volume administered (ml) Total IV fluid infused 1,600 02/10/25 14:04 [email or web address] Anesthesia Postop Eval I: Summary Notes Anesthesia Complication No 02/10/25 14:04 [email or web address] Anesthesia Complication Comment: Post-operative progress note Anesthesia: Postop Eval II Evaluation Mental status: Awake Pain Level: 0 nausea: No Vomiting: No Complications Anesthesia Complication: No
== END 2025-02-10 15:50 | disposition home or self-care (01) ==
LOC: SDC 09:13 → AC 09:15
PROVIDERS: PCP Family Medicine Geriatric Medicine; Referring Provider Orthopaedic Surgery Sports Medicine; Visit Provider Orthopaedic Surgery Sports Medicine
PROC: (CPT 29805; principal; 2025-02-10 10:55)
DX: S43.432A Superior glenoid labrum lesion of left shoulder, initial encounter (principal); Z86.16 Personal history of COVID-19; M75.102 Unspecified rotator cuff tear or rupture of left shoulder, not specified as traumatic; Z79.1 Long term (current) use of non-steroidal anti-inflammatories (NSAID); Z90.49 Acquired absence of other specified parts of digestive tract
CPT/HCPCS: 29826; 29827; 29828; 23430; 01630; 64450; 93005; C1713; J2405

== ENCOUNTER 2025-03-22 10:00 | Outpatient (RCR) | payer OTHER, SELFPAY ==
--- NOTE | 2025-03-03 12:25 | HP.PTEVAL_ITS ---
Patient's Visit Information Visit Information Visit Information: KAREN MIGUEL is a 55 year old F referred to Physical Therapy by Dr. Sarmad Cruz MD with a diagnosis of L SLAP repair, L RTC repair, DOS: 02/10/25. Date of Evaluation: 03/02/25 Physical Therapist: Sudheer William DPT Visit Plan Frequency: 2x /Week Duration: 6 Weeks Plan: 1) phase I PROM of L shoulder. Ice to control pain. protocol on cabinet to progress per time time. Subjective Subjective: Pt. is here today for her initial evaluation with diagnosis of L SLAP repair, L RTC repair, DOS: 02/10/25. Pt. reports having increased soreness to 7/10 today, but does get upto a 10/10 in the mornings with she gets up. Pt. did have her dog jump and bump into her arm last week causing her anterior incision to be irritated. Pt. is having pain with sleeping. Pt. is out of her sling, but this does cause more soreness. I talked to her about weaning from sling as tolerated. Pt. has been doing pendulums and elbow flexion/extension at home. 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 Pt. is hopeful to reduce her symptoms and get back to all work and recreational activities without limitations. Pain L shoulder: Pain Intensity (Out of 10): 7 Pain Intensity Range: 5 and 10 Objective Objective: POSTURE: Pt. tends to keep LUE in gaurded posture across her body. She will relax down if VCed. PALPATION: Port holes well healed. Her anterior incision is still healing, slight red and still scabbed over. Pt. reports dog scratched her at there last week. No other signs of infection noted. NEURO: Normal sensation noted. ROM: L shoulder PROM: flexion 80deg, abd 45deg, ER at side 15deg. Pt. reports pain limiting all motion. Empty end feel noted. Pt. has full L elbow ROM without issues. MMT: RUE 5/5 throughout. L UE: did not test due to recent surgery. Balance/Special Test Scores Quick DASH Score: 72.7250 Goals Goal 1:: LTG: Pt. to be I with HEP. Goal Time Frame: 4-6 Weeks Goal 2:: STG: Pt. to have increased L shoulder PROM to full without increase in L shoulder pain. Goal Time Frame: 2-4 Weeks Goal 3:: LTG: Pt. to have full AROM of L shoulder Goal Time Frame: 4-6 Weeks Goal 4:: STG: Pt. to sleep without increase in symptoms. Goal Time Frame: 2-4 Weeks Goal 5:: LTG: Pt. to have symmetrical strength between B UEs. Goal Time Frame: 4-6 Weeks Rehabilitation Potential Physical Therapy Diagnosis: Pt. has signs and symptoms consistent with L SLAP repair, L RTC repair, DOS: 02/10/25. Pt. has marked hypomobility, weakness, increased pain and difficulty completing ADLs. Pt. would benefit from PT to address the above limitations progressing back to all work and recreational activities without limitations. Rehabilitation Potential: Excellent Anticipated Interventions Patient/Client Instruction: Educate patient on: Condition, Plan of Care, Risk Factors and Benefits of Fitness Program For the Purpose of:: To improve decision making, To facilitate caregiver knowledge, To improve self management, To prevent re-injury and To improve ability to perform tasks related to life management Therapeutic Exercise to Include: Strength training, Power training, Postural training, Flexibilty training, Gait and locomotor training, Passive ROM and Active ROM For the Purpose of:: To decrease pain, To decrease swelling/inflammation, To increase ROM, To improve nutrient delivery to tissue, To increase oxygenation perfusion, To improve muscle performance and motor function, To improve ability to perform ADL's and To increase tolerance to activity/condition/position Manual Therapy Techniques to Include: Passive ROM and Soft tissue mobilization For the Purpose of:: To decrease pain, To decrease swelling/inflammation, To increase ROM, To improve nutrient delivery to tissue and To increase oxygenation perfusion Cryotherapy (ice pack, ice massage): Yes Thermo therapy (hot pack): Yes For the Purpose of:: To decrease pain, To decrease swelling/inflammation, To increase ROM and To improve nutrient delivery to tissue Text: Thank you for the opportunity to evaluate your patient. For Medicare and Medicare HMO plans, please review the plan of care and approve it. It will need to be FAXED BACK to us at [phone] for Medicare purposes. For Medicare only, by signing this I certify the plan of care. Please let me know if there are questions or concerns regarding this plan of care. Physician Signature: Date:
== END 2025-03-22 19:00 | disposition home or self-care (01) ==
LOC: PT 10:00
PROVIDERS: PCP Family Medicine Geriatric Medicine; Referring Provider Orthopaedic Surgery Sports Medicine; Visit Provider Orthopaedic Surgery Sports Medicine
DX: S43.432D Superior glenoid labrum lesion of left shoulder, subsequent encounter (principal); M75.102 Unspecified rotator cuff tear or rupture of left shoulder, not specified as traumatic
CPT/HCPCS: 97110; 97140; 97161

== ENCOUNTER → 2025-06-14 | Outpatient (CLI) | payer OTHER, SELFPAY ==
[2025-06-14 09:55] LABS: Hematocrit 39.6 % (37-47); Hemoglobin 13.1 g/dL (12.0-15.0); Immature Granulocytes Count 0.050 X10^3/uL (0.0-0.0); Mean Corp Hgb Conc 33.1 g/dL (32-36); Mean Corpuscular Volume 97.3 fL (81-99); Mean Platelet Vol. 9.1 fl (6.2-12.0); NRBC Flagged by Analyzer 0 % (0-5); Platelet Count 216 K/mm3 (150-450); RBC Distribution Width CV 12.2 % (11.6-14.6); RBC Distribution Width SD 43.8 fl (35.1-43.9); Red Blood Count 4.07 M/mm3 (4.2-5.4); White Blood Count 7.5 K/mm3 (4.4-11.0)
[2025-06-14 10:22] LABS: AST(SGOT) 20 U/L (<=31); Alanine Aminotransfer ALT/SGPT 39 U/L (<=34); Albumin, Serum 3.9 g/dL (3.5-5.0); Alkaline Phosphatase 92 U/L (35-104); Anion Gap 10 (5-15); BUN 13 mg/dL (4-19); BUN/Creat Ratio 17.4 RATIO (10-20); Calcium,Total 9.3 mg/dL (7.6-11.0); Carbon Dioxide 28.5 mmol/L (21.0-32.0); Chloride 105 mmol/L (98-108); Cholesterol 184 mg/dL (<=200); Globulin 2.4 g/dL (2.2-4.2); Glucose 143 mg/dL (70-99); Low Density Lipoprotein Calc. 117 mg/dL; Potassium 4.3 mmol/L (3.3-5.1); Triglycerides 108 mg/dL; Very Low Density Lipoprotein 22 mg/dL (5-40); cholesterol:hdl ratio screen 3.85
[2025-06-14 17:38] LABS: Xtra Tube Kwok EXTRA TUBE
== END | disposition home or self-care (01) ==
LOC: POLAB3 09:38
PROVIDERS: PCP Family Medicine Geriatric Medicine; Visit Provider Family Medicine Geriatric Medicine
DX: I10 Essential (primary) hypertension (principal)
CPT/HCPCS: 36415; 80053; 80061; 83036; 85025